=== PATIENT | male | born 1955 | race Caucasian/White ===

== ENCOUNTER 2021-08-05 09:03 | Day surgery (SDC) | payer BC, SELFPAY ==
--- NOTE | 2021-08-05 | IMM_PTH ---
PATIENT: MATHEW AVENDAÑO LOC: [facility] – [place] U#:[id number] AGE/SX: 65/M ROOM: RE08/05/[address]: Dr. Peter Wan MD : 1955 BED: DIS: 08/05/2021 SPEC #: [id number] RECD: 08/08/21 09:49 STATUS: KAUR REQ #: [id number] [place]: 08/05/21 00:[address]: Peter Wan DEPT: IMMUNOHISTOCHEMISTRY RECD BY: Katerien Kessler ENTERED: 08/08/21 09:50 SP TYPE: IMMUNO OTHR DR: Danielle Primary Care Phys Tissues: Supraglottic space Procedures: p16 (initial) KI-67 (add) PHYSICIAN & INSTITUTION [place] [address] SPECIMEN INFORMATION: Tissue Source: Left supraglottic mass Clinical Info: Left supraglottic mass Specimen Number: [id number] CPT code: 90956, 13538 METHODOLOGY: Deparaffinized sections of prefer/formalin-fixed tissue or PAP/DQ stained slides are incubated with monoclonal/polyclonal antibodies/oligonucleotide probes. Localization is made via biotin free immunoperoxidase method. Appropriate controls are performed and reacted as expected. Results on target cell population are indicated in the following table: RESULTS: ANTIBODY / CLONE RESULT P16 (E6H4) positive, patchy to focal block-like Ki-67 (30-9) positive, high (>90%) These tests were developed and their performance characteristics determined by [facility]. They may not have been cleared or approved by the U.S. Food and Drug Administration. The FDA has determined that such clearance or approval is not necessary. The above immunohistochemical/dualISH markers are ordered and reviewed by the Pathologist. INTERPRETATION: Left supraglottic mass, biopsy: Invasive moderately differentiated squamous cell carcinoma. AM:zita 08/12/2021
--- NOTE | 2021-08-05 | MASS_PTH ---
PATIENT: MATHEW AVENDAÑO [place] [facility] [place][id number] AGE/SX: 65/M ROOM: RE08/05/[address]: Dr. 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 See comment. SJ:zita 08/07/2021 COMMENT Immunohistochemistry ([id number]) for surrogate HPV marker (p16) will be performed and results will be reported separately. Case has been reviewed in consultation with Dr. Hoover who concurs with the above diagnosis. IDC:AM MICROSCOPIC DESCRIPTION Slides are reviewed. GROSS DESCRIPTION Received in fixative is one container labeled with the patient's name and designated left supraglottic mass. The specimen consists of multiple irregular fragments of light harris soft tissue that in aggregate measure 0.4 x 0.2 x 0.1 cm. The specimen is totally submitted in one cassette. / DIANNA:zita 08/06/2021 TC:0 CPT: 95576
[2021-08-05] MEDS: Lactated Ringers 1,000 ML 15 ML IV (09:30)
[2021-08-05 09:40] VITALS: BP 140/67; PULSE 65; RESP 18; TEMP 36.4; O2SAT 96; BMI 26.4
--- NOTE | 2021-08-05 12:38 | PCM.DC ---
Discharge Instructions Diet Discharge Diet: No restrictions Activity Discharge Activity: Return to Normal Activity Dressing / Incision Call your doctor if your incision/area has: Sudden Increased Bleeding and Increased Pain/ Swelling Follow Up Care Please Follow Up With: Marcial Wan MD When: 1 week Test Results: Test results from this visit will be discussed in further detail at your follow-up appointment, if applicable. Discharge Plan Admission Attending Provider: Marcial Wan Primary Care Provider: Care Physician,No Primary Discharge Orders/Prescriptions Prescriptions: No Action Delsym 30 mg/5 mL Liquid 30 mg PO PRN PRN (Reason: Cough) RF: 0 Mucinex 1,200 mg Tablet Extended Release 12hr 1,200 mg PO BID RF: 0 aspirin 81 mg Capsule 81 mg PO DAILY RF: 0 omeprazole 40 mg Capsule,Delayed Release(Dr/Ec) 40 mg PO DAILY RF: 0 Disposition Discharge Orders: Discharge Patient (Routine); Ordered 08/05/21 Ordered By: Dr. Marcial Wan
--- NOTE | 2021-08-05 12:38 | PCM.OPRPT ---
Problems Associated Problem List Diagnoses (1) Mass of larynx: Report of Operation Date of Procedure: 08/05/21 Pre-Operative Diagnosis: supraglottic mass, left Post-Operative Diagnosis: supraglottic mass, left Surgery/Procedure Performed:: direct laryngoscopy with biopsy and use of operative telescope Surgeon: Marcial Wan Type of Anesthesia: General Description of Procedure: on the day of the procedure, after appropriate informed consent was obtained, the patient was brought to the operating room and placed in supine position on the operating table. he was placed under general endotracheal anesthesia by the anesthesiologist. the tube was secured, the eyes were taped. the table was rotated 90 degrees toward the surgeon. a tooth guard was placed. a agueda laryngoscope was inserted into the oral cavity with care not to damage the lips, teeth or gums. it was suspended from the muir stand. a satisfactory glottic view was obtained, but his anatomy afforded a suboptimal angle. he has a 2cm granular left supraglottic mass that did not involve the cord but potentially the anterior area of the supraglottis. a biopsy was taken with a cupped biting forceps. hemostasis was achieved with oxymetazoline-soaked pledgets. he was extubated uneventfully by the anesthesiologist and sent to the PACU in stable condition.
[2021-08-05] MEDS: Oxymetazoline 0.05% 1 SPRAY SPRAY.BTL 15 SPRAY (13:09)
[2021-08-05 13:30] VITALS: BP 140/67; BP 158/91; PULSE 78; RESP 18; TEMP 36.4; O2SAT 96
[2021-08-05 13:45] VITALS: BP 139/81; BP 140/67; PULSE 71; RESP 16; TEMP 36.8; O2SAT 95
[2021-08-05 14:00] VITALS: BP 140/67
== END 2021-08-05 14:39 | disposition home or self-care (01) ==
LOC: SDC 09:04 → AC 09:06
PROVIDERS: Referring Provider Otolaryngology; Visit Provider Otolaryngology
PROC: 0CJS8ZZ Inspection of Larynx, Via Natural or Artificial Opening Endoscopic (ICD-10-PCS; CPT 31575; principal; 2021-08-05 10:40)
DX: C32.1 Malignant neoplasm of supraglottis (principal); J44.9 Chronic obstructive pulmonary disease, unspecified; M19.90 Unspecified osteoarthritis, unspecified site; Z79.82 Long term (current) use of aspirin; H40.059 Ocular hypertension, unspecified eye
CPT/HCPCS: 31536; 00320; 87426; 88305; 88341; 88342; C9803; J7120; J2405

== ENCOUNTER → 2021-08-27 | Outpatient (CLI) | payer BC, SELFPAY ==
--- NOTE | 2021-08-27 16:15 | PET_ITS ---
PROCEDURE: WHOLE BODY PET/CT SCAN, MID SKULL TO MID THIGH REASON FOR EXAM: Head and neck squamous cell carcinoma, initial staging COMPARISON EXAMINATION: CT 08/29/2020. TECHNIQUE: Following the intravenous administration of 13.4 mCi of F-18 FDG, multiplanar imaging acquisitions of the neck, chest, abdomen/pelvis to the mid thigh, obtained at 1 hour post radiopharmaceutical administration. Interpretation is with co-registeration of similar anatomic distribution of CT. Findings: Normal and physiologic distribution of radioisotope identified in the expected intensity of the hepatic and splenic parenchyma, urinary tract and gastrointestinal structures. There is gross anatomic distribution of the intracranial contents. Osseous degenerative changes/activity noted. INDEX LESION SIZE SUV INTERPRETATION: 1. Discrete nodule with abnormal FDG activity along the anterior left vocal cord (at level of thyroid cartilage) measures 1.1 x 1.3 cm (SUV 6.5). This is best seen on image [address] portion of the exam: Atherosclerosis of the carotid arteries. Volume loss of the right middle lobe. Mild atelectasis of the bilateral lower lobes. Centrilobular emphysema of the upper lungs. There is no demonstrated pleural abnormality. Normal heart and pericardium. There are calcifications of the coronary arteries. Normal mediastinum. Normal hilar regions. Normal unenhanced pulmonary arteries. There is atherosclerotic tortuosity of the aortic arch and descending thoracic aorta. Normal liver. Normal gallbladder and extrahepatic biliary system. Normal spleen. Normal pancreas. Normal bilateral adrenal glands. Normal right kidney. Normal left kidney. Normal visualized stomach. Normal small intestine. Normal colon. The appendix is visualized and appears normal. There is diffuse atherosclerotic calcification of the abdominal aorta, without a demonstrated aneurysm. Normal inferior vena cava. Normal urinary bladder. Small fat-containing inguinal hernias. Degenerative changes of the spine. No lytic or sclerotic bone lesions. PET/PET/CT Tumor Base -Thigh Init IMPRESSION: 1. ABNORMAL EXAMINATION. Focal activity of the left anterior larynx/vocal cord meets criteria for viable neoplasm. No evidence of metastasis. 2. Right middle lobe collapse/atelectasis. 3. Chronic changes, as detailed above. Electronically Signed: Kt Coon MD (Brooks) at 15:29 EDT Reading Location ID and State: / [place] , Service support ,
== END | disposition home or self-care (01) ==
PROVIDERS: Referring Provider Otolaryngology; Visit Provider Otolaryngology
DX: Z00.00 Encounter for general adult medical examination without abnormal findings (principal)
CPT/HCPCS: 78815; A9552

== ENCOUNTER → 2021-08-29 | Outpatient (CLI) | payer BC, SELFPAY ==
--- NOTE | 2021-08-29 07:27 | CT_ITS ---
EXAM: CT NECK WITH INTRAVENOUS CONTRAST CLINICAL INDICATION: SQUAMOUS CELL CARCINOMA TECHNIQUE: Helically acquired images were obtained of the neck with intravenous contrast. This CT exam was performed using one or more of the following dose reduction techniques: automated exposure control, adjustment of the mA and/or kV according to patient size, and/or use of iterative reconstruction technique. This report was created using [employer] technology. CONTRAST: 100 CC ISOVUE 300 COMPARISON: None. FINDINGS: NASOPHARYNX: Unremarkable. SUPRAHYOID NECK: Unremarkable. Oropharynx, oral cavity, parapharyngeal space and retropharyngeal space are unremarkable. INFRAHYOID NECK: Unremarkable. The larynx, hypopharynx and supraglottis are unremarkable. SUBMANDIBULAR/PAROTID GLANDS: Unremarkable. Glands are normal in size. THYROID: Unremarkable. No enlarged or calcified nodules. BONES/JOINTS: No acute fracture. SOFT TISSUES: Unremarkable. VASCULATURE: No acute findings. LYMPH NODES: Unremarkable. No lymphadenopathy. LUNG APICES: Emphysematous changes noted at the lung apices. CT/Soft Tissue Neck WITH Contrast IMPRESSION: 1. No evidence of neck mass or cervical adenopathy. 2. Pulmonary emphysema. Electronically Signed: Steve Hilton MD at 9:37 EDT ,
[2021-08-29 07:36] LABS: EGFR FINGERSTICK > 60.0000 mL/min (>60)
== END | disposition home or self-care (01) ==
LOC: CT 07:26
PROVIDERS: PCP Nurse Practitioner Primary Care; Referring Provider Otolaryngology; Visit Provider Otolaryngology
DX: C32.9 Malignant neoplasm of larynx, unspecified (principal)
CPT/HCPCS: 70491; Q9967

== ENCOUNTER → 2021-10-20 | Outpatient (CLI) | payer BC, SELFPAY ==
[2021-10-20 13:18] LABS: Platelet Count 220 K/mm3 (150-450)
[2021-10-20 13:27] LABS: International Normalized Ratio 0.9; Prothrombin Time (Protime)PT. 11.6 SECONDS (11.7-14.9)
== END | disposition home or self-care (01) ==
LOC: PAVLAB 12:55
PROVIDERS: PCP Nurse Practitioner Primary Care; Visit Provider Internal Medicine Critical Care Medicine
DX: J98.11 Atelectasis (principal)
CPT/HCPCS: 36415; 85049; 85610

== ENCOUNTER → 2022-04-02 | Outpatient (CLI) | payer BC, SELFPAY ==
--- NOTE | 2022-04-02 13:48 | ST.MBS ---
Modified Barium Swallow - Patient Information Study Date: 04/02/22 Study Time: 12:50 Direct Billable Minutes: 106 Total Minutes procedure & reportin Diagnosis: Primary cancer of the larynx (C32.9) Referring Physician: Sachin Oswald Reason for Referral: Objectively assess swallow function, assess risk for aspiration, and determine recommendations for least restrictive diet textures and compensatory strategies to improve safety of swallow. 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 From 10/06/2021 ? 11/12/2021 he received definitive radiation therapy to the larynx in 28 fractions. He followed with speech therapy to manage dysphagia during radiation treatment and has been recommended for follow-up MBSS to assess risk for worsening dysphagia s/p radiation. Current Diet Ordered: Regular textures / Thin liquids Dentition: WNL Mental Status: WNL Respiratory Status: Oxygenating on Room Air - Penetration-Aspiration Scale Penetration-Aspiration Scale: OBJECTIVE ASSESSMENT OF SWALLOW FUNCTION (QUANTITATIVE ? PER TRIAL): PENETRATION / ASPIRATION SCALE (DIAZ): 1 = does not enter airway 2 = enters airway/above vocal folds/ejected 3 = enters airway/above vocal folds/not ejected 4 = enters airway/contacts vocal folds/ejected 5 = enters airway/contacts vocal folds/not ejected 6 = enters airway/below vocal folds/ejected 7 = enters airway/below vocal folds/not ejected despite effort 8 = enters airway/below vocal folds/no effort VIDEOFLOROSCOPIC SCALE SCORE (DIAZ): Grade I = aspiration of material that has penetrated into the laryngeal vestibule, intact cough reflex Grade II = aspiration < 10 % of the bolus, intact cough reflex Grade III = aspiration of < 10 % of the bolus, reduced cough reflex or aspiration of > 10 % of the bolus, intact cough reflex Grade IV = aspiration of > 10 % of the bolus, reduced cough reflex - Penetration-Aspiration Scale Score Thin Liquid via teaspoon Result: 2= enter airway/above vocal folds/ejected Thin Liquid via teaspoon Trial 2 Result: 1= does not enter airway Thin Liquid via small single sip from cup Result: 2= enter airway/above vocal folds/ejected Thin Liquid via sequential sips from cup Result: 3= enters airways/above vocal folds/not ejected [place] Thick Liquid via small single sip from cup Result: 1= does not enter airway Honey Thick Liquid via small single sip from cup Result: 1= does not enter airway Pudding via teaspoon Result: 1= does not enter airway - Oral Phase Labial Seal: No Labial Escape Tongue Control During Bolus Hold: Posterior escape of less than half of bolus Bolus Preparation/Mastication: Timely and efficient chewing and mashing Bolus Transport/Lingual Motion: Brisk tongue motion Oral Residue: Trace residue lining oral structures - Pharyngeal Phase Initiation of Pharyngeal Swallow: Bolus head in valleculae Soft Palate Elevation: No bolus between soft palate and pharyngeal wall Laryngeal Elevation: Partial superior movement thyroid cart/partial apprx aryt-epig petiole Anterior Hyoid Excursion: Partial anterior movement Epiglottic Movement: Partial inversion Laryngeal Vestibule Closure at Height of Swallow: Incomplete; narrow column of air/contrast in laryngeal vestibule Pharyngeal Stripping Wave: Present - diminished Pharyngoesophageal Segment Opening: Parital distension and partial duration; parital obstruction of flow Tongue Base Retraction: Wide column of contrast between tongue base & post. pharyngeal wall Pharyngeal Residue: Collection of residue within or on pharyngeal structures - Esophageal Phase Esophageal Clearance: Esophageal retention w/ retrograde flow below pharyngoesophageal seg. - Diagnosis/Impression Diagnosis: Mild pharyngeal phase dysphagia (R13.13) Impression: The oral phase appeared WNL. The pharyngeal phase is primarily marked by... -Mildly decreased airway closure during the swallow due to mildly decreased anterior hyoid excursion, partial epiglottic inversion, and mildly decreased laryngeal elevation. -Mildly-moderately decreased tongue base retraction, mildly decreased UES opening/duration, and mildly decreased pharyngeal stripping wave with resulting mild pharyngeal residues after the swallow. -No aspiration observed during the study. Laryngeal penetration of thin by tsp and single sips by cup that fully ejected from the laryngeal vestibule after the swallow. One trial of sequential thin by cup penetrated and did not fully eject from the laryngeal vestibule. Pt did have reflexive throat clear during trial, which was somewhat effective. The esophageal phase is primarily marked by... -Esophageal retention of pudding in mid and lower esophagus with retrograde flow remaining below the UES. Thin liquid wash cleared a majority of the pudding bolus from the esophagus in a timely manner. - Recommendations Diet: Regular Textures, Thin Liquids Compensatory Strategies: Small Bites, Small Sips, Slow Rate, Multiple Swallows - continue as needed, Alternate bites/solids and sips/liquids, Sitting upright, Remain sitting upright for 30 minutes after PO intake Recommend Repeat Modified Barium Swallow: Yes Comment: Repeat MBSS study in 6-12 months to monitor swallow function as the patient is at risk for worsening dysphagia and aspiration risk s/p radiation treatment. Need for Skilled Speech Therapy Services: Yes Comment: Will recommend the patient for outpatient dysphagia therapy to address mild deficits in pharyngeal swallow function. Will recommend the patient for pharyngeal strengthening to improve mild deficits in laryngeal elevation, hyoid excursion, pharyngeal contraction, and duration of UES opening. The patient would benefit from thorough education regarding recommended compensatory strategies, as well as re-education in the long-term effects of radiation that increase risk for worsening dysphagia. Education Completed: 1. Described result of evaluation., 2. Pt understands evaluation & agrees with goals and treatment plan., 7. Pt requires further education on strategies & risks. - Status Active ST Patient: Active - Contact Information [facility] Speech Therapy:: Nancy Conrad M.A. [employer] Speech-Language Pathologist [facility] [address] [address] [email or web address] [phone] 04/02/22 13:56
== END | disposition home or self-care (01) ==
LOC: RAD 12:19
PROVIDERS: PCP Nurse Practitioner Primary Care; Visit Provider Student in an Organized Health Care Education/Training Program
DX: C32.9 Malignant neoplasm of larynx, unspecified (principal)
CPT/HCPCS: 74230; 92611

== ENCOUNTER 2022-04-07 11:30 | Outpatient (RCR) | payer BC, SELFPAY ==
--- NOTE | 2021-10-27 12:41 | HP.SP.EVAL ---
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 Plan was made to complete definitive radiation therapy consisting of 6300 cGy in 28 fractions to the larynx. 13 treatments are remaining. Smoking Status: Current some day smoker Hx Tobacco Use: Yes - Pain Is pain an issue with your current prescribed condition?: Yes Patient Allergies - Allergies Allergies codeine Adverse Reaction (Verified 10/22/21 13:14) Nausea Subjective Dysphagia - Symptoms Reported Symptoms/Problems with: Coughing, Difficulty Swallowing Liquids, Weight Loss - Current Diet Solids Current Diet: Soft - Current Diet Liquids Current Liquids: Thin - Comments Current complaints -: Pt concern for aspiration of liquids if he is taking too large of sips, odynophagia, mild hypogeusia and dysgeusia, weight 194.2 lbs (down 2-3 lbs per pt). He is currently eating ground/chopped meats and soft solids, such as macaroni and cheese. He reports 1 large meal and 2-3 snacks daily. Objective Dysphagia - Thin Liquids Administred via: Cup, Straw Oral Transit: Delay > 1 seconds Bolus clearance: significant clearance/minimal residue Cough: none observed/unable to assess Pharyngeal phase: laryngeal elevation mildly restricted slow initiation Patient Report: He reports increased difficulty swallowing with large sips. He describes requiring piecemeal deglutition with large sips to clear them safely and with minimal pain. Comments: No overt s/s of aspiration, dry vocal quality following trials. - Pureed Administered via: Spoon Oral Transit: WNL Bolus clearance: fully cleared Cough: none observed/unable to assess Pharyngeal phase: laryngeal elevation mildly restricted slow initiation Comments: He consumes bites of applesauce via 1/2 tsp. He completed bites with timely swallow, no overt s/s of aspiration. - Regular Oral Preparation: WNL Bolus clearance: significant clearance/minimal residue Cough: weak reflexive cough Pharyngeal phase: immediate laryngeal elevation Comments: Prolonged mastication, cough following 2 bites - Swallowing Impairment Contributing Factors to Swallowing Impairment: Delayed Swallow Initiation - Impact Impact on Safety & Functioning: Risk for Aspiration, Risk for Inadequate Nutrition/Hydration - Recommendations Modified Barium Swallow/Cookie Swallow Recommended: Yes Swallowing Treatment: Yes - Diet Texture Recommendations Solids: Soft & Bite sized (Level 6, Chopped) Liquids: Thin (Level 0) Other: Strongly encouraged completing green tea and baking soda rinses recommended by his radiation oncologist, Dr. Oswald. - Safety Saftey Precautions/Swallowing Recommendations (Check all that Apply): Small Sips & Bites when Eating, Alternate Liquids & Solids - Results Swallowing Within Normal Limits: No Swallowing Diagnosis: Pharyngeal Phase Dysphagia (R13.13) Severity: Mild Subjective Oral Motor - Comments Comments: Hoarseness, which began after the first week of radiation. Objective Oral Motor - Oral Status Dentition: Missing Teeth - Labial Impairment: WNL Observation at Rest: WNL Closure: WNL Pucker: WNL Involuntary Movement noted: No - Lingual Impairment: WNL Protrusion: WNL Retraction: WNL Lateralization: WNL - Jaw Impairment: WNL Opening: WNL Closing: WNL Opening Measurement: 41mm lip to lip measurement Involuntary Movement: No - Respiratory Status Respiratory Status: Room Air SHUTDOWN COORDINATOR - V Trigeminal Nerve V Trigeminal Nerve Response: Intact - VII Facial Nerve VII Facial Nerve Result: Impaired Comment: mild dysgeusia and hypogeusia - X Vagus Nerve X Vagus Nerve Result: Intact - XII Hypoglossal Nerve XII Hypoglossal Nerve Result: Intact FOIS - Functional Oral Intake Scale Total oral diet with multiple consistencies, but requiring special preparation or compensations: Level 5 Other - Other EAT-10 -: Score of 17 - score of 19 helpful in detecting the presence of pharyngeal residue in head and neck cancer patients. Plan - Plan Plan: Will recommend the patient for skilled outpatient dysphagia therapy to address mild pharyngeal dysphagia related to laryngeal cancer and to provide the patient further education re: prophylactic oropharyngeal exercise program, diet texture recommendations, aspiration precautions, and compensatory strategies to decrease risk for aspiration. Additionally, will provide ongoing assessment of diet tolerance during and post radiation treatment. Without skilled ST services, the patient is at increased risk for aspiration, weight loss, and malnutrition. SENIOR ENLISTED ADVISOR recommended Dr. Oswald place consult to certified coding specialist to meet with the patient about introducing oral supplements due to recent weight loss and SENIOR ENLISTED ADVISOR concerns for dehydration risk. - Recommendations MBS: Yes Treatment Warranted: Yes Treatment Warranted: Dysphagia Comment: MBS study 3 months after completion of radiation (~). - Progress Prognosis: Good - Frequency Frequency: Every Other Week Duration: 12 Months - Goal #1-5 Goal #1: The patient will consume least restrictive diet textures without overt s/s of aspiration with minimal verbal cues for use of compensatory strategies to decrease risk for aspiration. Goal #2: The patient will complete an oropharyngeal exercise program during and post radiation treatment independently to improve and maintain strength, ROM, and coordination of swallowing mechanism (X10 repetitions, 3-5X daily). Goal #3: The patient will participate in ongoing education re: short-term and long-term effects of chemoradiation treatment on swallow function and management of symptoms that contribute to dysphagia. Goal #4: The patient will participate in MBS study to objectively assess swallow function and provide recommendations for safest, least restrictive diet and compensatory strategies to reduce risk for aspiration. Education - Patient Instruction Patient Education: Diagnosis, Treatment Plan, Goals, Diet Level, Home Exercise Program Other Education: Education provided regarding the potential impacts of radiation treatment on swallow function during and post treatment, including effects such as mucositis, dysgeusia, radiation fibrosis, lymphedema, and disuse atrophy which may result in restricted range of motion and weakness of swallowing mechanism. Discussed impaired swallowing and increased risk for aspiration, aspiration related illnesses, weight loss, and malnutrition. Discussed importance for speech therapy to monitor and address dysphagia during and post radiation treatment to maintain optimal swallow function through continued education and prophylactic exercise program. Provided the patient a handout and demonstration of prophylactic oropharyngeal exercise program. The patient provided return demonstration with all exercises with minimal verbal cues and demonstration. The patient would benefit from continued training to monitor proper execution of exercises and encourage strict adherence to exercise program. Person Taught: Patient Teaching Method: Discussion, Demonstration, Handout, Teach back Response to teaching: Return demonstration, Verbalize understanding, Reinforcement needed
--- NOTE | 2022-12-22 11:41 | HP.SP.DC ---
Discharge Summary Discharged: Discharge: The patient was seen for dysphagia evaluation 10/27/2021. He attended 3 follow up sessions for training in recommended diet textures, aspiration precautions, and oropharyngeal exercise program. He was tolerating his diet, utilizing strategies with min cues, and able to complete exercises with minimal cues. He is being discharged from at this time. He is recommended for yearly MBSS or FEES to objectively evaluate swallow function and aspiration risk s/p radiation treatment for laryngeal cancer.
== END 2022-04-07 19:00 | disposition home or self-care (01) ==
LOC: SP 11:30
PROVIDERS: PCP Nurse Practitioner Primary Care; Referring Provider Student in an Organized Health Care Education/Training Program; Visit Provider Student in an Organized Health Care Education/Training Program
DX: C32.9 Malignant neoplasm of larynx, unspecified (principal)
CPT/HCPCS: 77336; 77412; 77417; 92526; 92610

== ENCOUNTER → 2022-06-01 | Outpatient (CLI) | payer BC, SELFPAY ==
--- NOTE | 2022-06-01 16:15 | CT_ITS ---
INDICATION: follow up lung abnormality on PET -- please compare to prior EXAMINATION: CT CHEST WITH CONTRAST - CT Chest W/O Contrast Injection A radiation dose optimization technique was used for this scan. COMPARISON: PET CT 02/25/2022. FINDINGS: Noncontrast serial CT axial images through the chest with coronal and sagittal reformatted series. MEDIASTINUM: Noncontrast mediastinum is unremarkable. LUNG PARENCHYMA: Diffuse upper lung predominant emphysematous lung changes. Interval decreased consolidation of the posteromedial right lower lobe. Decreased posterior left upper lobe smaller area of consolidation as well. PLEURA: No pleural effusion. No pneumothorax. BONES: Osseous structures are unremarkable for age. UPPER ABDOMEN: Bilateral adrenal adenomas. CT/Chest without Contrast IMPRESSION: Interval decreased consolidation of the posteromedial right lower lobe. Decreased posterior left upper lobe smaller area of consolidation as well. Electronically Signed: Tomas Tony MD at 3:20 EDT ,
== END | disposition home or self-care (01) ==
LOC: CT 16:14
PROVIDERS: PCP Nurse Practitioner Primary Care; Visit Provider Student in an Organized Health Care Education/Training Program
DX: R94.2 Abnormal results of pulmonary function studies (principal)
CPT/HCPCS: 71250

== ENCOUNTER → 2023-04-05 | Outpatient (CLI) | payer BC, SELFPAY ==
--- NOTE | 2023-04-05 14:19 | ST.MBS ---
Modified Barium Swallow Patient Information Study Date: 04/05/23 Study Time: 13:00 Direct Billable Minutes: 64 Total Minutes procedure & reportin Diagnosis: Primary cancer of larynx C32.9 Referring Physician: Shukri Pino Reason for Referral: Objectively assess swallow function, assess risk for aspiration, and determine recommendations for least restrictive diet textures and compensatory strategies to improve safety of swallow. 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 From 10/06/2021 ? 11/12/2021 he received definitive radiation therapy to the larynx in 28 fractions. He followed with speech therapy to manage dysphagia during radiation treatment and has been recommended for follow-up MBSS to assess risk for worsening dysphagia s/p radiation. Currently, he has ~25% of his taste after having COVID-19 twice. He also is very hoarse due to two recent PNA (~2 months ago and ~2 weeks ago). He was unsure what type of PNA he had. He denies xerostomia or odynophagia. He reports having to chew foods thoroughly and moisten dry textures. He has stopped eating bread. Current Diet Ordered: Soft, moist solids (no bread) / Thin liquids Dentition: Natural Teeth and Missing Teeth Mental Status: WNL Respiratory Status: Oxygenating on Room Air Penetration-Aspiration Scale Penetration-Aspiration Scale: OBJECTIVE ASSESSMENT OF SWALLOW FUNCTION (QUANTITATIVE ? PER TRIAL): PENETRATION / ASPIRATION SCALE (DIAZ): 1 = does not enter airway 2 = enters airway/above vocal folds/ejected 3 = enters airway/above vocal folds/not ejected 4 = enters airway/contacts vocal folds/ejected 5 = enters airway/contacts vocal folds/not ejected 6 = enters airway/below vocal folds/ejected 7 = enters airway/below vocal folds/not ejected despite effort 8 = enters airway/below vocal folds/no effort VIDEOFLOROSCOPIC SCALE SCORE (DIAZ): Grade I = aspiration of material that has penetrated into the laryngeal vestibule, intact cough reflex Grade II = aspiration < 10 % of the bolus, intact cough reflex Grade III = aspiration of < 10 % of the bolus, reduced cough reflex or aspiration of > 10 % of the bolus, intact cough reflex Grade IV = aspiration of > 10 % of the bolus, reduced cough reflex Penetration-Aspiration Scale Score Thin Liquid via teaspoon: Result: 3= enters airways/above vocal folds/not ejected Thin Liquid via teaspoon Effortful swallow: Result: 3= enters airways/above vocal folds/not ejected Thin Liquid via large single sip: cup: Result: 3= enters airways/above vocal folds/not ejected [place] Thick Liquid via small single sip: cup: Result: 1= does not enter airway Pudding via teaspoon: Result: 1= does not enter airway Comment: Esophageal screen - retention in mid-lower esophagus. Thin Liquid via sequential sips:straw: Result: 3= enters airways/above vocal folds/not ejected Comment: Esophageal screen - pudding contrast from the previous trial mostly cleared. 1/2 Cookie: Result: 1= does not enter airway Thin Liquid via large single sip: cup Chin tuck: Result: 3= enters airways/above vocal folds/not ejected Oral Phase Labial Seal: No Labial Escape Tongue Control During Bolus Hold: Cohesive bolus between tongue to palatal seal Bolus Preparation/Mastication: Timely and efficient chewing and mashing Bolus Transport/Lingual Motion: Brisk tongue motion Oral Residue: Trace residue lining oral structures Pharyngeal Phase Initiation of Pharyngeal Swallow: Bolus head in valleculae Soft Palate Elevation: No bolus between soft palate and pharyngeal wall Laryngeal Elevation: Partial superior movement thyroid cart/partial apprx aryt-epig petiole Anterior Hyoid Excursion: Partial anterior movement Epiglottic Movement: No inversion Laryngeal Vestibule Closure at Height of Swallow: Incomplete; narrow column of air/contrast in laryngeal vestibule Pharyngeal Stripping Wave: Present - diminished Pharyngoesophageal Segment Opening: Complete distension and complete duration; no obstruction of flow Tongue Base Retraction: Wide column of contrast between tongue base & post. pharyngeal wall Pharyngeal Residue: Collection of residue within or on pharyngeal structures Esophageal Phase Esophageal Clearance: Esophageal retention Diagnosis/Impression Diagnosis: Mild-moderate pharyngeal dysphagia R13.13 Impression: The oral phase appeared WNL. The pharyngeal phase is primarily marked by... -Mildly decreased airway closure during the swallow due to decreased anterior hyoid excursion, little to no epiglottic inversion (worse compared to previous study), and decreased laryngeal elevation. -Moderately decreased tongue base retraction and moderately decreased pharyngeal stripping wave (worse compared to previous study) with resulting mild-moderate pharyngeal residues after the swallow. Multiple swallows were independently used to clear a majority of pharyngeal residues. -No aspiration observed during the study. Consistent laryngeal penetration of thin and nectar thick liquids. Thin liquids did not fully ejected from the laryngeal vestibule after the swallow. Chin tuck somewhat decreased amount/depth of laryngeal penetration. Cough and re-swallow was most effective in decreasing aspiration risk. The esophageal phase is primarily marked by... -Esophageal retention of pudding in mid and lower esophagus remaining below the UES. Thin liquid wash cleared a majority of the pudding bolus from the esophagus in a timely manner. Recommendations Diet: Mechanical Soft Textures (Soft and bite size (IDDSI Level 6)) and Thin Liquids Compensatory Strategies: Small Bites, Small Sips, Slow Rate, Multiple Swallows (Patient completes as needed), Alternate bites/solids and sips/liquids, Sitting upright and Remain sitting upright for 30 minutes after PO intake Supervision: 1:1 Close Supervision Recommend Repeat Modified Barium Swallow: Yes Comment: Repeat MBS study in 6-12 months to monitor swallow function as the patient is at risk for worsening dysphagia and aspiration risk s/p radiation treatment. Patient is not interested in FEES at this time. Need for Skilled Speech Therapy Services: Yes Comment: -Train the patient in use of strategies to decrease risk for aspiration. -Ongoing assessment of diet tolerance of recommended textures. -Train the patient oropharyngeal exercise program. Education Completed: 1. Described result of evaluation., 2. Pt understands evaluation & agrees with goals and treatment plan. and 7. Pt requires further education on strategies & risks. Status Active ST Patient: Active Contact Information [facility] Speech Therapy:: Nancy Conrad M.A. [facility] Speech-Language Pathologist [facility] [address] [place] [address] [email or web address] [phone]
== END | disposition home or self-care (01) ==
PROVIDERS: PCP Nurse Practitioner Primary Care; Referring Provider Radiology Radiation Oncology; Visit Provider Radiology Radiation Oncology
DX: C32.9 Malignant neoplasm of larynx, unspecified (principal)
CPT/HCPCS: 74230; 92611

== ENCOUNTER → 2023-06-08 | Outpatient (CLI) | payer BC, SELFPAY ==
--- NOTE | 2023-06-08 13:23 | CT_ITS ---
STUDY: LOW DOSE CT LUNG CANCER SCREENING REASON FOR EXAM: Male, 67 years old. Patient smoke 2 packs per day for 40 years. COPD. History of esophageal carcinoma. RADIATION DOSAGE (If Supplied By Facility): CTDIvol = ( 3.02 ) mGy, DLP = ( 130.96 ) mGycm TECHNIQUE: No contrast was administered. Low dose technique was utilized (average mAS-38 and kVp 120). 1.25 mm axial source images with a slice interval of 1.25-mm were reconstructed in lung windows. 2.5 mm axial source images with a slice interval of 2.5-mm were reconstructed in lung windows. 5.0 mm axial source images with a slice interval of 5.0-mm were reconstructed in soft tissue windows. COMPARISON: Comparison is made with prior study dated June 01, 2022. NODULES: There is a 1.1 solid by 2 cm pleural-based nodular density in the posterior aspect of the left lower lobe as seen on axial image #2052 and coronal image #20 and 27. Correlation with a PET scan is recommended. Emphysema: Hyperinflation. Emphysematous changes more pronounced in the upper lobes. There is evidence of bronchiectasis with scarring and volume loss in the posterior medial segment of the right lower lobe. Linear scarring in the posterior medial segment of the left lower lobe. Endobronchial lesion: None Aorta: Atherosclerotic plaque formation of the aortic arch. CORONARY ARTERIES: Coronary artery calcification is seen. Heart: Unremarkable Pulmonary artery: Unremarkable Mediastinal nodes: Unremarkable Other chest and abdominal findings: CT/Low Dose CT Lung Screening IMPRESSION: Lung-RADS category 4B - Chest CT with or without contrast, PET/CT and/or tissue sampling can be obtained depending on the probability of malignancy and comorbidities. IMPORTANT NOTES FOR USE: ACR Lung-RADS Version 1.1 Assessment Categories Release Date: 2018 Category: Coded 0-4 bases on nodule(s) with highest degree of suspicion. Negative screen is defined as categories 1 and 2; a positive screen is defined as categories 3 and 4. Category 3 and 4A nodules that are unchanged on interval CT should be coded as category 2, and individuals returned to screening in 12 months. Category 4X: Category 3 or 4 nodules with additional imaging findings that increase the suspicion of lung cancer, such as spiculation, GGN that doubles in size in 1 year, enlarged lymph notes, etc. Category Modifiers: S (significant finding unrelated to lung cancer) Electronically Signed: Anibal Azevedo MD at 14:52 EDT ,
== END | disposition home or self-care (01) ==
LOC: CT 13:23
PROVIDERS: PCP Nurse Practitioner Primary Care; Referring Provider Nurse Practitioner Family; Visit Provider Nurse Practitioner Family
DX: Z12.2 Encounter for screening for malignant neoplasm of respiratory organs (principal); Z87.891 Personal history of nicotine dependence
CPT/HCPCS: 71271

== ENCOUNTER 2023-07-06 07:26 | Outpatient (CLI) | payer BC, SELFPAY ==
[2023-07-06] VITALS (17 sets, daily range): BP systolic 131–163; BP diastolic 53–90; PULSE 65–77; RESP 12–16; TEMP 36.7; O2SAT 96–99; BMI 24.0
[2023-07-06 07:56] LABS: Platelet Count 225 K/mm3 (150-450)
[2023-07-06 08:29] LABS: International Normalized Ratio 0.9; Prothrombin Time (Protime)PT. 12.6 SECONDS (11.7-14.9)
[2023-07-06] MEDS: 0.9% Normal Saline (250mL Bag) 250 ML 15 ML IV (08:59)
[2023-07-06] MEDS: Midazolam 2 MG/2 ML Syringe IV (09:00)
[2023-07-06] MEDS: fentaNYL 100 MCG/2 ML Ampul IV (09:04)
[2023-07-06] MEDS: Lidocaine 2% (20 ml mdv) 20 ML Vial INFILT (09:19)
--- NOTE | 2023-07-06 09:40 | RAD_ITS ---
STUDY: X-RAY CHEST REASON FOR EXAM: Male, 67 years old. Immediately post lung biopsy -- Immediately post lung biopsy TECHNIQUE: AP inspiration and expiration views. COMPARISON: None. FINDINGS: Immediate post left lung biopsy radiographs were obtained. There is a tiny left apical pneumothorax. RAD/Chest Insp/Exp 2 View IMPRESSION: Tiny left apical pneumothorax. Electronically Signed: Anibal Azevedo MD at 10:09 EDT ,
--- NOTE | 2023-07-06 10:35 | PCM.OP.PRO ---
Procedure Report Date of Procedure: 07/06/23 Assessment & Plan Assessment/Plan (1) Mass of lower lobe of left lung: PLAN: PROCEDURE: CT GUIDED CORE NEEDLE LUNG BIOPSY ORDERING PROVIDER: Sharon Chase CNP INDICATION: Male, 67 years old. Left lower lobe lung mass. PROVIDER: JAVIER Martin CONSENT: Written informed consent was obtained having explained the risks, benefits and alternatives in detail with the patient and who accepted the risks and agreed to proceed. Laboratory review and clinical assessment was performed. PRE-PROCEDURE SEDATION ASSESSMENT: Current history and physical dictated by referring physician and reviewed. No clinical changes since date of exam. Patient has an ASA Class of 2. PROCEDURAL SEDATION PROTOCOL: The Drugs used were: 2 mg Versed, IV, and 50 mcg Fentanyl, IV. The sedation time was: 29 minutes, starting at 9:00 AM and terminated at 9:29 AM. The procedural sedation protocol was independently monitored by the department nurse. RADIATION DOSAGE (If Supplied By Facility): CTDIvol = 16.73 mGy, DLP = 2.83.80 mGycm Individualized dose optimization techniques were used for this CT. TECHNIQUE: The patient was placed in a prone position. A noncontrast CT was performed to localize the lesion in the left lower lobe. The skin surface was prepped and draped in a sterile fashion. 2% lidocaine was used for local anesthesia. Using CT guidance, a 20-gauge coaxial biopsy device was advanced to the periphery of the lesion. While attempting to obtain the first biopsy sample, it was noted that there was no sample being returned. Repeat localization imaging revealed an iatrogenic pneumothorax. BioSentry tract sealant system was deployed at the biopsy site, and the biopsy needle was immediately removed. A sterile occlusive dressing was applied to the biopsy site. The patient tolerated the procedure well. An immediate chest xray was ordered, per protocol. IMPRESSION: 1. Attempted lung biopsy of mass of left lower lobe. Sampling was unable to be obtained. 2. Procedural Sedation protocol utilized with independent monitoring by the department nurse. Procedures Radiology Radiology CT Procedures: [id number] Biopsy Lung
--- NOTE | 2023-07-06 11:20 | RAD_ITS ---
STUDY: X-RAY CHEST REASON FOR EXAM: Male, 67 years old. 2 hours post lung biopsy -- 2 hours post lung biopsy TECHNIQUE: Two AP portable view of the chest. COMPARISON: July 06, 2023 FINDINGS: 1. No visualized left apical pneumothorax on the current study. 2. Redemonstration of hyperinflation and interstitial fibrotic scarring of both lungs 3. No demonstrated consolidation or pleural effusion 4. Normal heart size 5. Stable mediastinum and osseous structures There is no demonstrated abnormality of the visualized soft tissue structures of the upper abdomen. RAD/Chest Insp/Exp 2 View IMPRESSION: No visualized left pneumothorax Electronically Signed: Lul Kennedy MD at 13:39 EDT ,
== END 2023-07-06 23:59 | disposition home or self-care (01) ==
PROVIDERS: PCP Nurse Practitioner Primary Care; Referring Provider Nurse Practitioner Acute Care; Visit Provider Nurse Practitioner Acute Care
DX: R91.8 Other nonspecific abnormal finding of lung field (principal); I48.91 Unspecified atrial fibrillation; R06.00 Dyspnea, unspecified; T14.8XXA Other injury of unspecified body region, initial encounter
CPT/HCPCS: 32408; 36415; 71046; 77012; 85049; 85610; 85730; 99156; J7050; A4216; C2613

== ENCOUNTER → 2023-07-09 | Outpatient (CLI) | payer BC, SELFPAY | END | disposition home or self-care (01) | PROVIDERS: PCP Nurse Practitioner Primary Care; Referring Provider Nurse Practitioner Acute Care; Visit Provider Nurse Practitioner Acute Care | DX: F17.200 Nicotine dependence, unspecified, uncomplicated (principal) | CPT/HCPCS: 94060; 94726; 94729 ==

== ENCOUNTER → 2023-11-09 | Outpatient (CLI) | payer BC, SELFPAY ==
--- NOTE | 2023-11-09 16:58 | CT_ITS ---
INDICATION: Pulmonary nodule EXAMINATION: CT CHEST WITHOUT CONTRAST - CT Chest W/O Contrast Injection TECHNIQUE: Helically acquired images were obtained of the chest. A radiation dose optimization technique was used for this scan. IV Contrast dosage and agent: None. COMPARISON: 06/08/2023 FINDINGS: LUNGS, PLEURA AND LARGE AIRWAYS: Bone windows show underlying emphysema with bleb formation throughout both lung guerrero and stable nonspecific pleural thickening in both apices. There is no organized infiltrate, or effusion. The previously noted pleural-based mass in the posterior left lower lobe has decreased in size since the previous study. On the previous study it measured approximately 1.1 x 2 cm, on current study it measures 0.6 x 0.4 cm. Previously noted atelectatic changes in the medial right lower lobe are also again noted and these have also decreased in size since the previous study. There is no new suspicious noncalcified mass or nodule. THYROID: No thyroid lesions. HEART AND PERICARDIUM: Heart size is normal. No pericardial effusion. CORONARY ARTERIES: Coronary artery calcification is seen. VESSELS: Thoracic aorta is not dilated. MEDIASTINUM AND TAPAN: No suspicious bulky mediastinal or hilar adenopathy. Esophagus is unremarkable. No hiatal hernia. UPPER ABDOMEN: No acute pathology. BONES: No suspicious lytic or blastic abnormality. Bony structures show degenerative change CT/Chest without Contrast IMPRESSION: Previously noted pleural-based densities in both lower lung guerrero have decreased in size since the previous study. This suggests benignity. Emphysema is independent risk factor for lung cancer and patient should be placed in a low-density CT screening program for lung cancer. No organized infiltrate effusion or suspicious new noncalcified mass or nodule No suspicious adenopathy Degenerative bony changes Electronically Signed: Steven Coon MD at 8:45 EDT ,
== END | disposition home or self-care (01) ==
LOC: CT 16:55
PROVIDERS: PCP Nurse Practitioner Primary Care; Referring Provider Nurse Practitioner Acute Care; Visit Provider Nurse Practitioner Acute Care
DX: R91.8 Other nonspecific abnormal finding of lung field (principal)
CPT/HCPCS: 71250

== ENCOUNTER → 2024-08-04 | Outpatient (CLI) | payer BC, SELFPAY ==
--- NOTE | 2024-08-04 11:08 | SP.MBSS_ITS ---
Modified Barium Swallow Patient Information Study Date: 08/04/24 Study Time: 09:00 Direct Billable Minutes: 116 Total Minutes procedure & reportin Diagnosis: Primary cancer of the larynx C32.9 Referring Physician: Sachin Oswald Reason for Referral: Assess swallow function, assess risk for aspiration, and determine recommendations for least restrictive diet textures and compensatory strategies to improve safety of swallow. 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 From 10/06/2021 ? 11/12/2021 he received definitive radiation therapy to the larynx in 28 fractions. Dysphaiga Hx: He followed with speech therapy to manage dysphagia during radiation treatment and has attended annual follow up MBSS to assess risk for worsening dysphagia s/p radiation. PNA 2X February 2023-March 2023. MBSS 04/05/2023 revealed mild-moderate pharyngeal dysphagia and recommended Soft and Bite Size Textures and Thin Liquids w/ the following Compensatory Strategies: Small Bites, Small Sips, Slow Rate, Multiple Swallows (Patient completes as needed), Alternate bites/solids and sips/liquids, Sitting upright and Remain sitting upright for 30 minutes after PO intake. HULL GRINDER recommended follow up dysphagia therapy to address worsening swallow function, but the patient did not wish to return to at the time. He still has ~25% of his taste after having COVID-19 twice. He continues to be hoarse. ?Severe xerostomia upon waking but no issues w/ dry mouth during the day. No odynophagia. He reports having to chew foods thoroughly and take his time. The only food he avoids currently is rice. Current Diet Ordered: Regular textures (no rice) / Thin liquids Dentition: Natural Teeth and Missing Teeth Mental Status: WNL Respiratory Status: Oxygenating on Room Air Penetration-Aspiration Scale Penetration-Aspiration Scale: OBJECTIVE ASSESSMENT OF SWALLOW FUNCTION (QUANTITATIVE ? PER TRIAL): PENETRATION / ASPIRATION SCALE (DIAZ): 1 = does not enter airway 2 = enters airway/above vocal folds/ejected 3 = enters airway/above vocal folds/not ejected 4 = enters airway/contacts vocal folds/ejected 5 = enters airway/contacts vocal folds/not ejected 6 = enters airway/below vocal folds/ejected 7 = enters airway/below vocal folds/not ejected despite effort 8 = enters airway/below vocal folds/no effort VIDEOFLOROSCOPIC SCALE SCORE (DIAZ): Grade I = aspiration of material that has penetrated into the laryngeal vestibule, intact cough reflex Grade II = aspiration < 10 % of the bolus, intact cough reflex Grade III = aspiration of < 10 % of the bolus, reduced cough reflex or aspiration of > 10 % of the bolus, intact cough reflex Grade IV = aspiration of > 10 % of the bolus, reduced cough reflex Penetration-Aspiration Scale Score Thin Liquid 5mL : Result: 7= enters airways/below vocal folds/not ejected despite effort Thin Liquid 5mL Trial 2 - Head tilt backwards, patient reported this helps him to swallow: Result: 6= enters airway/below vocal folds/ejected Thin Liquid via large single sip: cup: Result: 5= enters airways/contacts vocal folds/not ejected Thin Liquid 10mL: Result: 5= enters airways/contacts vocal folds/not ejected Comment: post prandial aspiration [place] Thick Liquid via small single sip: cup: Result: 7= enters airways/below vocal folds/not ejected despite effort [place]/Mildly Thick Liquid 10mL: Result: 3= enters airways/above vocal folds/not ejected Comment: post prandial aspiration [place]/Mildly Thick Liquid 5mL: Result: 3= enters airways/above vocal folds/not ejected [place]/Mildly Thick Liquid 5mL Trial 2: Result: 3= enters airways/above vocal folds/not ejected Pudding 10mL: Result: 1= does not enter airway 1/2 Cookie: Result: 1= does not enter airway Thin Liquid via single sip: straw: Result: 1= does not enter airway Thin Liquid via single sip: straw Trial 2: Result: 5= enters airways/contacts vocal folds/not ejected Thin Liquid via single sip: straw - cued 3, effortful swallows: Result: 3= enters airways/above vocal folds/not ejected Thin Liquid via single sip: straw Trial 2 - cued 3, effortful swallows: Result: 3= enters airways/above vocal folds/not ejected Oral Phase Labial Seal: No Labial Escape Tongue Control During Bolus Hold: Escape to lateral buccal cavity/floor of mouth (Pt briefly spoke w/ thin by tsp in his mouth asking if he could swallow yet; otherwise, good bolus control) Bolus Preparation/Mastication: Disorganized chewing/mashing with solid pieces of bolus unchewed (small piece of [place] cookie not chewed) Bolus Transport/Lingual Motion: Brisk tongue motion Oral Residue: Residue collection on oral structures Pharyngeal Phase Initiation of Pharyngeal Swallow: Bolus head in valleculae Soft Palate Elevation: Trace column of contrast/air between soft palate and pharyngeal wall Laryngeal Elevation: Partial superior movement thyroid cart/partial apprx aryt- epig petiole Anterior Hyoid Excursion: Partial anterior movement Epiglottic Movement: Partial inversion Laryngeal Vestibule Closure at Height of Swallow: Incomplete; narrow column of air/contrast in laryngeal vestibule Pharyngeal Stripping Wave: Present - diminished Pharyngoesophageal Segment Opening: Minimal distension and minimal duration; marked obstruction of flow Tongue Base Retraction: Wide column of contrast between tongue base & post. pharyngeal wall Pharyngeal Residue: Majority of contrast within or on pharyngeal structures Esophageal Phase Esophageal Clearance: Esophageal retention w/ retrograde flow below pharyngoesophageal seg. Diagnosis/Impression Diagnosis: Moderate oropharyngeal dysphagia R13.12 Impression: The oral phase is primarily marked by... -Decreased mastication with a small piece of cookie appearing un-chewed and remaining in the pharynx after the first swallow. It cleared w/ independent use of a second swallow; however, un-chewed food may increase risk for choking. -Piecemeal deglutition of cookie. The pharyngeal phase is primarily marked by... -Decreased pharyngeal motility due to decreased TB retraction, pharyngeal stripping wave, and UES opening/duration of opening. >50% of the bolus remained in the pharynx after the first swallow w/ thin by tsp and cookie trial, but majority of the bolus cleared from the pharynx with independent use of multiple swallows. -Consistent laryngeal penetration of thin and mildly thick liquids that did not fully eject after the swallow. Aspiration of thin liquids by tsp (fully ejected 1 of 2 instances w/ reflexive cough), thin liquids via 10cc cup, mildly thick liquids via cup. Reflexive throat clearing throughout the MBSS w/ reflexive cough in response to aspiration during the study. The esophageal phase is primarily marked by... -Very mild esophageal retention of pudding in the lower esophagus w/ some retrograde flow remaining well below the UES. Recommendations Diet: Easy to Chew Textures and Thin Liquids Comment: Intermittent throat clear and re-swallow Compensatory Strategies: Small Bites (Chew thoroughly and moisten dry textures), Slow Rate, Multiple Swallows (3, effortful/hard swallows on EACH SIP), Alternate bites/solids and sips/liquids, Sitting upright and Remain sitting upright for 30 minutes after PO intake Need for Skilled Speech Therapy Services: Yes Comment: HULL GRINDER educated the patient in recommendation for worsening swallow function as compared to previous MBSS and strongly encouraged follow up dysphagia therapy. Pt agreeable. -Train the patient in use of strategies to decrease risk for aspiration. -Ongoing assessment of diet tolerance of recommended textures. -Train the patient oropharyngeal exercise program. Would recommend the patient for participation in [place] [facility] w/ coughing as the clinical indicator of aspiration and hard masticated Level 9 as the starting level for solids and Level 2 as the starting level for liquids. Education Completed: 1. Described result of evaluation., 2. Pt understands evaluation & agrees with goals and treatment plan. and 7. Pt requires further education on strategies & risks. Status Active ST Patient: Active Contact Information [facility] Speech Therapy:: Nancy Conrad M.A. [facility]? Speech-Language Pathologist?? [facility] [address] [place] [address]? [email or web address]?? [phone]
== END | disposition home or self-care (01) ==
LOC: RAD 08:44
PROVIDERS: PCP Nurse Practitioner Primary Care; Referring Provider Student in an Organized Health Care Education/Training Program; Visit Provider Student in an Organized Health Care Education/Training Program
DX: C32.9 Malignant neoplasm of larynx, unspecified (principal)
CPT/HCPCS: 74230; 92611

== ENCOUNTER 2024-10-12 15:30 | Outpatient (RCR) | payer BC, SELFPAY ==
--- NOTE | 2024-08-21 16:20 | HP.SP.EV_ITS ---
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 From 10/06/2021 ? 11/12/2021 he received definitive radiation therapy to the larynx in 28 fractions. Dysphagia Hx: He followed with speech therapy to manage dysphagia during radiation treatment and has attended annual follow up MBSS to assess risk for worsening dysphagia s/p radiation. PNA 2X February 2023-March 2023. MBSS 04/05/2023 revealed mild-moderate pharyngeal dysphagia and recommended Soft and Bite Size Textures and Thin Liquids w/ the following Compensatory Strategies: Small Bites, Small Sips, Slow Rate, Multiple Swallows (Patient completes as needed), Alternate bites/solids and sips/liquids, Sitting upright and Remain sitting upright for 30 minutes after PO intake. FRAUD EXAMINER recommended follow up dysphagia therapy to address worsening swallow function, but the patient did not wish to return to at the time. He still has ~25% of his taste after having COVID-19 twice. He continues to be hoarse. Severe xerostomia upon waking but no issues w/ dry mouth during the day. No odynophagia. He reports having to chew foods thoroughly and take his time. The only food he avoids currently is rice. Pt recently had yearly MBSS to monitor swallow function s/p radiation treatment. It revealed again Mild-moderate oropharyngeal dysphagia w/ aspiration of thin and mildly thickened liquids. FRAUD EXAMINER recommended Easy to Chew textures / Thin liquids w/ strict aspiration precautions. Due to worsening aspiration risk since previous MBSS, FRAUD EXAMINER strongly recommended return to dysphagia treatment for participation in the [place] [facility] ([facility]). Pt agreeable and is here today for BSE to begin OP POC. Smoking Status: Current every day smoker Pain Is pain an issue with your current prescribed condition?: No Personal Preferred language: [place] Patient Allergies Allergies Allergies: Allergies codeine Adverse Reaction (Verified 07/14/24 10:48) Nausea Subjective Dysphagia Symptoms Reported Symptoms/Problems with: Difficulty Swallowing Solids, Food gets stuck, Xerostomia and Hx of Aspiration Other: avoids breads, rice Current Diet Solids Current Diet: Regular Current Diet Liquids Current Liquids: Thin Objective Dysphagia Administered by Administered by: Self Thin Liquids Administred via: Cup and Straw Cough: throat clear Comments: Independent use of multiple, effortful swallows w/ intermittent use of throat clear. He trialed sips via water bottle and via straw. No s/s of aspiration observed in addition to volitional throat clearing. Pureed Administered via: Spoon Cough: none observed/unable to assess Regular Cough: none observed/unable to assess Comments: Timely mastication of pretzel w/ multiple swallows, good oral clearance, no overt s/s of aspiration, independent use of liquid wash. Impact Impact on Safety & Functioning: Risk for Aspiration Recommendations Swallowing Treatment: Yes Diet Texture Recommendations Solids: Easy to Chew (Level 7) Liquids: Thin (Level 0) Other: Intermittent throat clear and re-swallow, Small Bites (Chew thoroughly and moisten dry textures), Slow Rate, Multiple Swallows (3, effortful/hard swallows on EACH SIP), Alternate bites/solids and sips/liquids, Sitting upright and Remain sitting upright for 30 minutes after PO intake Results Swallowing Within Normal Limits: Yes Swallowing Diagnosis: Oropharyngeal Phase Dysphagia (R13.12) Severity: Moderate Subjective Oral Motor Comments Comments: Hoarse vocal quality, but clear speech production Objective Oral Motor Oral Status Dentition: Missing Teeth and Decay Additional: molars, 2 front bottom teeth Labial Impairment: WNL Closure: WNL Pucker: WNL Retraction: WNL Alternating Pucker/Retraction: WNL Lingual Impairment: WNL Observation: Deviated Right Protrusion: WNL Retraction: WNL Lateralization: WNL Lingual Comments Comments: Very slight deviation R Jaw Impairment: WNL Opening: WNL Opening Measurement: 44mm from teeth to teeth Respiratory Status Respiratory Status: Room Air Swallowing Performance Scale Swallowing Performance Scale Swallowing Performance Scale Result: 4 Mild to Moderate Reference: Neuro-QoL instrument Radiation Oncology Patient FOIS Functional Oral Intake Scale Total oral diet with multiple consistencies, but requiring special preparation or compensations: Level 5 Total oral diet with multiple consistencies without special preparation, but with specific food limitations: Level 6 Plan Plan Plan: The patient is recommended for intensive dysphagia therapy to address worsening swallow function and aspiration risk s/p radiation treatment for head and neck cancer. FRAUD EXAMINER recommends the patient for participation in [place] [facility] ([facility]). [facility] is an intensive, systematic exercise therapy program that utilizes motor learning and progressive-load training to improve swallow function. It is high intensity, and is recommended to be completed 4-5X/week X3 weeks. For this patient, coughing is the clinical indicator of aspiration and hard masticated Level 9 is the starting level for solids and Level 2 is the starting level for liquids. Without additional dysphagia therapy, the patient is at risk for worsening swallow function and worsening aspiration risk s/p radiation treatment for laryngeal cancer. Recommendations Treatment Warranted: Dysphagia Progress Prognosis: Good Frequency Frequency: 4-5x /Week Duration: 3-4 weeks Visits in this POC: 15 Goal #1-5 Goal #1: (LTG 1.0) The patient will demonstrate functional effective swallowing of a full (e.g. 400 pina) regular-textured meal following 15 sessions of 1 hour swallowing therapy, characterized by safe completion within 30 minutes, of a multi consistency meal without sign or symptoms of swallowing difficulty and without need for compensation or special maneuvers. Goal #2: (STG 1.1) The patient will consume thin liquids w/o s/s of aspiration and w/o need for compensation or special maneuvers with 80% accuracy for 3 consecutive sessions. Goal #3: (STG 1.2) The patient will consume Easy to Chew textures w/o s/s of aspiration and w/o need for compensation or special maneuvers with 80% accuracy for 3 consecutive sessions. Education Patient Instruction Patient Education: Diagnosis, Treatment Plan, Goals, Safety Precautions and Diet Level Person Taught: Patient Teaching Method: Discussion Response to teaching: Return Demonstration, Verbalize Understanding and Reinforcement Needed
--- NOTE | 2024-12-22 15:35 | HP.SP.DC ---
ST Discharge Summary Discharged: Discharge: Pt recently had MBSS 08/04/2024 to monitor swallow function s/p radiation treatment. It revealed again Mild-moderate oropharyngeal dysphagia w/ aspiration of thin and mildly thickened liquids. SPACE AND STORAGE CLERK recommended Easy to Chew textures / Thin liquids w/ strict aspiration precautions. Due to worsening aspiration risk since previous MBSS, SPACE AND STORAGE CLERK recommended return to dysphagia treatment for participation in the [place] [facility] ([facility]TP). Pt agreeable and participated in 3 weeks of intensive dysphagia intervention w/ repeat MBSS on 10/19/2024 revealing improved pharyngeal motility, but still an aspiration risk with thin liquids (see study for full details). SPACE AND STORAGE CLERK recommended the patient consider additional participation in MDTP; however, the patient politely declined. SPACE AND STORAGE CLERK recommended 1 follow up session to re-train in oropharyngeal home exercise program (Effortful swallows w/ food, Chetna, Sera, Shaker). Pt has not returned for additional visits. Will discharge the patient from OP ST at this time. Please re-consult for dysphagia evaluation if concern for worsening swallow function prior to yearly MBSS to monitor dysphagia and aspiration risk s/p radiation treatment for hx of HNC.
== END 2024-10-12 19:00 | disposition home or self-care (01) ==
LOC: SP 15:30
PROVIDERS: PCP Nurse Practitioner Primary Care; Referring Provider Student in an Organized Health Care Education/Training Program; Visit Provider Student in an Organized Health Care Education/Training Program
DX: C32.9 Malignant neoplasm of larynx, unspecified (principal)
CPT/HCPCS: 92526; 92610

== ENCOUNTER → 2024-10-19 | Outpatient (CLI) | payer BC, SELFPAY ==
--- OUTSIDE RECORDS SUMMARY | 2024-10-19 14:39 | XMS RPT_ITS | CCD ---
Author Organization [facility] Team Providers Care Clinical Physician Assistant Name Role Phone CHU BARRETT Primary Care Physician ([phone]) Nelli LABORATORY OPERATIONS COORDINATOR, LABORATORY OPERATIONS COORDINATOR-C Chu Primary Care Provider [phone] Dr. Yobany Villela Attending Provider Dr. Ubaldo Ray Referring Provider Dr. Yobany Villela Referring Provider [phone] Nelli LABORATORY OPERATIONS COORDINATOR, LABORATORY OPERATIONS COORDINATOR-C Chu Referring Provider [phone] Dr. Srikanth Rea Attending Provider Nelli LABORATORY OPERATIONS COORDINATOR, LABORATORY OPERATIONS COORDINATOR-C Chu Primary Care Provider [phone] Nelli LABORATORY OPERATIONS COORDINATOR, LABORATORY OPERATIONS COORDINATOR-C Chu Referring Provider [phone] Dr. Yobany Villela Attending Provider [phone] CHU BARRETT Primary Care Physician ([phone]) Nelli LABORATORY OPERATIONS COORDINATOR, LABORATORY OPERATIONS COORDINATOR-C Chu Primary Care Provider [phone] Dr. Yobany Villela Attending Provider [phone] Nelli LABORATORY OPERATIONS COORDINATOR, LABORATORY OPERATIONS COORDINATOR-C Chu Primary Care Provider [phone] Dr. Yobany Villela Attending Provider Nelli LABORATORY OPERATIONS COORDINATOR, LABORATORY OPERATIONS COORDINATOR-C Chu Primary Care Provider [phone] Nelli LABORATORY OPERATIONS COORDINATOR, LABORATORY OPERATIONS COORDINATOR-C Chu Referring Provider Robert LABORATORY OPERATIONS COORDINATOR, LABORATORY OPERATIONS COORDINATOR-C Paulette Attending Provider ENRIKETES LOT TECHNICIAN-INBOUND SALES CONSULTANT, CHU Primary Care Unavailabl e BALTES LOT TECHNICIAN-INBOUND SALES CONSULTANT, CHU Attending Unavailabl e BALTES LOT TECHNICIAN-INBOUND SALES CONSULTANT, CHU Primary Care Unavailabl e BALTES LOT TECHNICIAN-INBOUND SALES CONSULTANT, CHU Attending Unavailabl e BALTES LOT TECHNICIAN-INBOUND SALES CONSULTANT, CHU Primary Care Unavailabl e BALTES LOT TECHNICIAN-INBOUND SALES CONSULTANT, CHU Attending Unavailabl e BALTES LOT TECHNICIAN-INBOUND SALES CONSULTANT, CHU Primary Care Unavailabl e CHASE LOT TECHNICIAN-INBOUND SALES CONSULTANT, SHARON Attending Unava francisco Jones LABORATORY OPERATIONS COORDINATOR, LABORATORY OPERATIONS COORDINATOR-C Paulette Referring Provider [phone] Nelli LABORATORY OPERATIONS COORDINATOR, LABORATORY OPERATIONS COORDINATOR-C Chu Referring Provider [phone] Chase LABORATORY OPERATIONS COORDINATOR, LABORATORY OPERATIONS COORDINATOR-C Sharon Attending Provider Salvatore LABORATORY OPERATIONS COORDINATOR, LABORATORY OPERATIONS COORDINATOR-C Sharon Referring Provider Salvatore LABORATORY OPERATIONS COORDINATOR, LABORATORY OPERATIONS COORDINATOR-C Sharon Other Provider ADRIENNE Nugent-C Jannie Bo Attending Provider BALTES LOT TECHNICIAN-INBOUND SALES CONSULTANT, CHU Primary Care Unavailabl e BALTES LOT TECHNICIAN-INBOUND SALES CONSULTANT, CHU Attending Unavailabl e BALTES LOT TECHNICIAN-INBOUND SALES CONSULTANT, CHU Attending Unavailabl e BALTES LOT TECHNICIAN-INBOUND SALES CONSULTANT, CHU Primary Care Unavailabl e BALTES LOT TECHNICIAN-INBOUND SALES CONSULTANT, CHU Primary Care Unavailabl e BALTES LOT TECHNICIAN-INBOUND SALES CONSULTANT, CHU Attending Unavailabl e BALTES LOT TECHNICIAN-INBOUND SALES CONSULTANT, CHU Primary Care Unavailabl e BALTES LOT TECHNICIAN-INBOUND SALES CONSULTANT, CHU Attending Unavailabl e Baltes LABORATORY OPERATIONS COORDINATOR-C, Chu Primary Care Provider [phone] Baltes LABORATORY OPERATIONS COORDINATOR-C, Chu Referring Provider Dr. Yobany Villela DO Attending Provider Dr. Yobany Villela DO Referring Provider Baltes LABORATORY OPERATIONS COORDINATOR, Chu Primary Care Unavailable Baltes LABORATORY OPERATIONS COORDINATOR, Chu Referring Unavailable Ronny Villelae Attending Unavailable Baltes LABORATORY OPERATIONS COORDINATOR, Chu Primary Care Unavailable Yobany Villela Attending Unavailable Ronny Villelae Referring Unavailable Baltes LABORATORY OPERATIONS COORDINATOR, Chu Primary Care Unavailable Baltes LABORATORY OPERATIONS COORDINATOR, Chu Referring Unavailable Chase LABORATORY OPERATIONS COORDINATOR, Sharon Attending Unavailable Baltes LABORATORY OPERATIONS COORDINATOR, Chu Primary Care Unavailable Ronny Villelae Attending Unavailable Baltes LABORATORY OPERATIONS COORDINATOR, Chu Primary Care Unavailable Margret Yobany Attending Unavailable Margret, Yobany Referring Unavailable Baltes LABORATORY OPERATIONS COORDINATOR, Chu Primary Care Unavailable Chase LABORATORY OPERATIONS COORDINATOR, Sharon Attending Unavailable Chase LABORATORY OPERATIONS COORDINATOR, Sharon Referring Unavailable Allergies Allergy Classification Reported Allergen(s) Allergy Type Date of Onset Reaction(s) Facility (20 sources) Codeine; Translations: [codeine] Drug Allergy 3 passed out, nausea [facility] (1 source) Codeine Drug Allergy 5 [facility] Repository Medications Current Medications Medication Drug Class(es) Dates Sig (Normalized) Sig (Original) [id number] 200 actuat albuterol 0.09 mg/actuat metered dose inhaler (3 sources) beta2-Adrenergic Agonist Start: 06-23-2023 Albuterol Sulfate 90 mcg/actuation HFA aerosol inhaler Active 2 NMA INHALATION June 23, 2023 12:00am Start: 06-23-2023 Albuterol Sulf ate Active 2 PUFF INHALATION June 23, 2023 12:00am albuterol MDI (90 mcg/inh) CFC free inhalation aerosol (4 sources) Start: 01-05-2023 take 2 puff(s) by inhalation every four hours as needed for wheezing albuterol MDI (90 mcg/inh) CFC free inhalation aerosol 2 puff(s), Inhalation, q4h, PRN as needed for wheezing, # 18 gram(s), 0 Refill(s), Pharmacy: [facility]/pharmacy #[id number], Productive cough, 179, cm, 01/05/23 9:40:00 EDT, Height, kg, 01/05/23 9:40:00 EDT, Dosing Weight Start Date: 01/05/23 Status: Ordered amoxicillin 875 mg / clavulanate 125 mg oral tablet (1 source) Penicillin-class Antibacterial Start: 04-27-2022 End: 05-07-2022 take 1 tablet by mouth every twelve hours amoxicillin-clavu lanate 875 mg-125 mg oral tablet 1 tab(s), Oral, q12h, X 10 day(s), # 20 tab(s), 0 Refill(s), 05/07/22 16:44:00 EST, Pharmacy: [facility]/pharmacy #[id number], 180, cm, 04/27/22 7:56:00 EST, Height, 82.6 Start Date: 04/27/22 Stop Date: 05/07/22 Status: Ordered aspirin 500 mg / caffeine 32.5 mg oral tablet (13 sources) Platelet Aggregation Inhibitor, Nonsteroidal Anti-inflammatory Drug, Central Nervous System Stimulant, Methylxanthine Start: 06-08-2023 Aspirin-Caffeine (Keerthi Back And Body) 500-32.5 mg tablet Active 1 {tbl} PO June 08, 2023 12:00am On Hold: Ordered Start: 12-18-2021 take 1 tablet by jadiel th every six hours as needed for pain Keerthi Back and Body 500 mg-32.5 mg oral tablet Dose = 2 tab(s), Oral, q6h, PRN as needed for pain, 0 Refill(s) Start Date: 12/18/21 Status: Ordered Start: 06-25-2021 take 1 tablet by jadiel th every six hours as needed for pain Keerthi Back and Body 500 mg-32.5 mg oral tablet Dose = 2 tab(s), Oral, q6h, PRN as needed for pain, 0 Refill(s) Start Date: 06/25/21 Status: Ordered Azithromycin 5 Day Dose Pack 250 mg oral tablet (1 source) Start: 04-05-2024 End: 04-10-2024 Azithromycin 5 Day Dose Pack 250 mg oral tablet Take two (2) tablets day 1-then one (1) tablet, Oral, Daily, X 5 day(s), # 6 tab(s), 0 Refill(s), 04/10/24 12:05:00 PM EST, Pharmacy: [facility]/pharmacy #[id number], COPD exacerbation, 177.8, cm, 04/05/24 8:14:00 EST, Height, 86, kg, 04/05/24 8:14:00 EST, Dosing Weight Start Date: 04/05/24 Stop Date: 04/10/24 Status: Ordered Quantity: 6.0 Unit: tab(s) Repeat number: 1 Indication: Chronic obstructive pulmonary disease with (acute) exacerbation Keerthi Back and Body 500 mg-32.5 mg oral tablet (1 source) Start: 12-18-2021 take 1 tablet by mouth every six hours as needed for pain Keerthi Back and Body 500 mg-32.5 mg oral tablet Dose = 2 tab(s), Oral, q6h, PRN as needed for pain, 0 Refill(s) Start Date: 12/18/21 Status: Ordered Repeat number: 1 busPIRone hydrochloride 5 mg oral tablet (18 sources) Start: 06-23-2023 take 1 tablet by mouth twice daily as needed for anxiety Buspirone 5 mg tablet Active 5 mg PO TWICE A DAY as needed for anxiety June 23, 2023 12:00am Start: 09-18-2021 End: 06-08-2023 take 1 tablet by mouth three times daily Buspirone 7.5 mg tablet Discontinued 7.5 mg PO THREE TIMES A DAY September 18, 2021 12:00am June 08, 2023 12:52pm [facility] Multi-Symptom Cold and Flu (2 sources) Start: 01-05-2023 [facility] Multi-Symptom Cold and Flu Oral, q4h, 0 Refill(s) Start Date: 01/05/23 Status: Ordered naproxen sodium 220 mg oral tablet (6 sources) Nonsteroidal Anti-inflammatory Drug Start: 12-18-2021 take 1 capsule by mouth every eight hours as needed for pain Aleve 220 mg oral tablet 1 cap(s), Oral, q8h, PRN as needed for pain, 0 Refill(s) Start Date: 12/18/21 Status: Ordered Start: 06-25-2021 take 1 capsule by mo [facility] every eight hours as needed for pain Aleve 220 mg oral tablet 1 cap(s), Oral, q8h, PRN as needed for pain, # 40 cap(s), 0 Refill(s) Start Date: 06/25/21 Status: Ordered omeprazole 40 mg delayed release oral capsule (17 sources) Proton Pump Inhibitor Start: 12-24-2023 End: 06-21-2024 omeprazole 40 mg oral delayed release capsule Dose : 40 mg = 1 cap(s), Oral, qDay, # 90 cap(s), 1 Refill(s), Pharmacy: [facility]/pharmacy #[id number], GERD (gastroesophageal reflux disease), 177.8, cm, 12/24/23 10:34:00 EDT, Height, kg, 12/24/23 10:34:00 EDT, Dosing Weight Start Date: 12/24/23 Stop Date: 06/21/24 Status: Ordered Quantity: 90.0 Unit: cap(s) Repeat number: 2 Indication: Gastro-esophageal reflux disease without esophagitis Start: 04-27-2022 omeprazole 40 mg oral delayed release capsule Dose : 40 mg = 1 cap(s), Oral, qDay, # 30 cap(s), 0 Refill(s) Start Date: 04/27/22 Status: Ordered Start: 07-29-2021 End: 09-23-2021 take 1 capsule by mouth once daily Omeprazole 40 mg Capsule,Delayed Release(Dr/Ec) Discontinued 40 mg PO DAILY July 29, 2021 12:00am September 23, 2021 1:05pm polyethylene glycol 3350 with electrolytes oral powder for reconstitution (1 source) Start: 11-11-2022 polyethylene glycol 3350 with electrolytes oral powder for reconstitution See Instructions, As directed by provider at [facility] # 1 EA, 0 Refill(s), Pharmacy: [facility]/pharmacy #[id number], Colon cancer screening, 180.3, cm, 11/11/22 15:06:00 EDT, Height, kg, 11/11/22 15:06:00 EDT, Dosing Weight Start Date: 11/11/22 Status: Ordered Robitussin Cough + Chest Congestion DM 20 mg-200 mg/20 mL oral liquid (2 sources) Start: 06-25-2023 Robitussin Cough + Chest Congestion DM 20 mg-200 mg/20 mL oral liquid Dose = 20 mL, Oral, q4h, PRN as needed for cough, UNSURE WHICH ONE. not to exceed 6 doses/day, # 120 mL, 0 Refill(s) Start Date: 06/25/23 Status: Ordered traZODone hydrochloride 50 mg oral tablet (18 sources) Serotonin Reuptake Inhibitor Start: 06-23-2023 take 1 tablet by mouth at bedtime as needed for sleep Trazodone 50 mg tablet Active 50 mg PO AT BEDTIME as needed for sleep June 23, 2023 12:00am Start: 09-23-2021 End: 06-08-2023 take 1 tablet by mouth at bedtime as needed for sleep Trazodone 50 mg tablet Discontinued 50 mg PO AT BEDTIME as needed for Sleep September 23, 2021 12:00am June 08, 2023 12:52pm {11 (varenicline 0.5 MG Oral Tablet [Chantix]) / 42 (varenicline 1 MG Oral Tablet [Chantix]) } Pack [Chantix First Month of Therapy] (3 sources) Partial Cholinergic Nicotinic Agonist Start: 03-20-2022 take 1-3 tablets by mouth once, then take 4-7 tablets by mouth once daily, then take 8 tablets by mouth twice daily, then take 1 mg by mouth twice daily Chantix Starter Pack 0.5 mg-1 mg oral tablet See Instructions, Day 1-3: 0.5mg once a day Day 4-7: 0.5mg twice a day Day 8 and after: 1 mg twice a day, # 1 packet(s), 0 Refill(s), Pharmacy: [facility]/pharmacy #[id number], 179.07, cm, 03/20/22 8:52:00 EST, Height Start Date: 03/20/22 Status: Ordered Completed/Discontinued Medications Medication Drug Class(es) Dates Sig (Normalized) Sig (Original) aspirin 81 mg oral tablet (11 sources) Platelet Aggregation Inhibitor, Nonsteroidal Anti-inflammatory Drug Start: 07-29-2021 End: 09-23-2021 take 1 capsule by mouth once daily Aspirin 81 mg Capsule Discontinued 81 mg PO DAILY July 29, 2021 12:00am September 23, 2021 1:04pm Start: 07-10-2014 aspirin Dose : 81 mg =, qDay Start Date: 07/10/14 Status: Ordered dextromethorphan hydrobromide 30 mg oral tablet (10 sources) Uncompetitive O-arnxbo-V-aspartate Receptor Antagonist, Sigma-1 Agonist Start: 07-29-2021 End: 03-02-2022 Dextromethorphan Hbr (Delsym) 30 mg/5 mL Liquid Discontinued 30 mg PO NEEDED as needed for Cough July 29, 2021 12:00am March 02, 2022 12:07pm 12 hr guaiFENesin 1200 mg extended release oral tablet (10 sources) Start: 07-29-2021 End: 03-02-2022 take 1 tablet by mouth twice daily as needed for cough, then take 1 tablet by mouth every twelve hours as needed for cough Guaifenesin (Mucinex) 1,200 mg Tablet Extended Release 12hr Discontinued 1200 mg PO TWICE A DAY as needed for Cough July 29, 2021 12:00am March 02, 2022 12:07pm Magic Mouth Wash (Bmx) (7 sources) Start: 10-22-2021 End: 06-04-2022 take 15 mL by mouth four times daily as needed for pain Magic Mouth Wash (Bmx) Discontinued 15 ML PO .qid 180 October 21, 2021 11:00pm June 04, 2022 2:44pm take 15 mL swoosh and swallow PO QID prn pain Start: 10-22-2021 End: 06-04-2022 take 15 mL by mouth four times daily as needed for pain Magic Mouth Wash (Bmx) Discontinued 15 ML PO .qid 180 October 22, 2021 12:00am June 04, 2022 3:44pm take 15 mL swoosh and swallow PO QID prn pain Start: 10-22-2021 take 15 mL by mouth four times daily as needed for pain Magic Mouth Wash (Bmx) Active 15 ML PO .qid 180 October 21, 2021 11:00pm take 15 mL swoosh and swallow PO QID prn pain Start: 10-22-2021 take 15 mL by mouth four times daily as needed for pain Magic Mouth Wash (Bmx) Active 15 ML PO .qid 180 October 22, 2021 12:00am take 15 mL swoosh and swallow PO QID prn pain Magic Mouth Wash (Bmx) 180 mL suspension (1 source) Start: 10-22-2021 End: 06-04-2022 take 15 mL by mouth four times daily as needed for pain Magic Mouth Wash (Bmx) 180 mL suspension Discontinued 15 mL PO .qid as needed for pain 180 October 22, 2021 12:00am June 04, 2022 3:44pm take 15 mL swoosh and swallow PO QID prn pain oxyCODONE hydrochloride 1 mg/ml oral solution (14 sources) Opioid Agonist Start: 11-12-2021 End: 11-22-2021 take 5 mL by mouth every four to six hours as needed for pain Oxycodone 5 mg/5 mL solution Discontinued 5 mg PO Q4H as needed for pain 250 10 November 12, 2021 November 21, 2021 12:00am November 22, 2021 12:04am take 5 mL PO q4-6 hours prn pain Start: 10-29-2021 End: 11-08-2021 take 5 mL by mouth every four to six hours as needed for pain Oxycodone 5 mg/5 mL solution Discontinued 5 mg PO Q4H as needed for pain 250 10 October 29, 2021 November 07, 2021 12:00am November 08, 2021 12:06am take 5 mL PO q4-6 hours prn pain predniSONE 10 mg oral tablet (2 sources) Start: 03-19-2023 End: 03-25-2023 take 1 tablet by mouth once daily prednisone 10mg tab (TAPER) Taper 40-20-10 mg x 2 days each dose, Oral, Daily, # 14 tab(s), 0 Refill(s), Pharmacy: [facility]/pharmacy #[id number], Wheezing, 179, cm, 01/05/23 9:40:00 EDT, Height, kg, 01/05/23 9:40:00 EDT, Dosing Weight Start Date: 03/19/23 Stop Date: 03/25/23 Status: Ordered silver sulfADIAZINE 10 mg/ml topical cream (7 sources) Sulfonamide Antibacterial Start: 11-10-2021 End: 06-04-2022 Silver Sulfadiazine 1 % cream Discontinued 1 NMA TOPICAL TWICE A DAY November 10, 2021 12:00am June 04, 2022 3:44pm apply a 1.5 mm thickness twice daily over moist peeling Problems Active Problems Problem Classification Problem Date Documented Da te Episodic/Chronic Alcohol-related disorders (10 sources) Alcohol abuse; Translations: [Alcohol abuse, uncomplicated] 09-26-2021 Chronic Allergic reactions (7 sources) Radiation dermatitis; Translations: [Radiodermatitis, unspecified] 11-10-2021 Episodic Anxiety disorders (19 sources) Anxiety; Translations: [Claustrophobia] 08-22-2021 Chronic Cancer of head and neck (20 sources) Primary malignant neoplasm of larynx; Translations: [Malignant neoplasm of larynx, unspecified] Onset: 08-08-2024 Chronic Cardiac dysrhythmias (1 source) Unspecified atrial fibrillation; Translations: [Unspecified atrial fibrillation] Chronic Chronic kidney disease (10 sources) Chronic kidney disease stage 2; Translations: [Chronic kidney disease] 12-18-2021 Chronic Chronic obstructive pulmonary disease and bronchiectasis (5 sources) Chronic obstructive lung disease; Translations: [Chronic obstructive pulmonary disease, unspecified] 06-23-2023 Chronic Comment on above: FEV1 77% Disorders of lipid metabolism (10 sources) Hyperlipidemia 06-24-2021 Chronic Esophageal disorders (8 sources) Radiation esophagitis; 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] 10-22-2021 Episodic Essential hypertension (14 sources) Hypertensive disorder; Translations: [Essential (primary) hypertension] Onset: 06-25-2023 06-24-2021 Chronic Heart valve disorders (10 sources) Mitral valve prolapse 06-24-2021 Chronic Other bone disease and musculoskeletal deformities (9 sources) Costal chondritis 04-27-2022 Episodic Other gastrointestinal disorders (1 source) Dysphagia, oropharyngeal phase; Translations: [Dysphagia, oropharyngeal phase] Onset: 10-11-2024 Episodic Other injuries and conditions due to external causes (3 sources) Contusion; Translations: [Other injury of unspecified body region, initial encounter] 06-23-2023 Episodic Other lower respiratory disease (10 sources) Chronic cough 06-25-2021 Episodic Other lower respiratory disease (11 sources) Dyspnea; Translations: [Dyspnea, unspecified] 06-25-2021 Episodic Other lower respiratory disease (4 sources) Solitary nodule of lung; Translations: [Solitary pulmonary nodule] 06-08-2023 Episodic Other lower respiratory disease (3 sources) Solitary pulmonary nodule; Translations: [Solitary pulmonary nodule] 06-08-2023 Episodic Other lower respiratory disease (3 sources) Lung mass; Translations: [Other nonspecific abnormal finding of lung field] 06-23-2023 Episodic Other nervous system disorders (10 sources) Numbness and tingling sensation of skin 06-25-2021 Episodic Other screening for suspected conditions (not mental disorders or infectious disease) (18 sources) Imaging of lung abnormal ; Translations: [Abnormal results of pulmonary function studies] 03-02-2022 Episodic Other upper respiratory disease (10 sources) Hoarse 06-25-2021 Episodic Other upper respiratory disease (4 sources) Disorder of the larynx; Translations: [Other diseases of larynx] 08-05-2021 Episodic Other upper respiratory disease (3 sources) Other diseases of larynx; Translations: [Other diseases of larynx, not elsewhere classified] Episodic Other upper respiratory disease (6 sources) Mass of neck; Translations: [Other diseases of larynx] 08-05-2021 Episodic Other upper respiratory infections (9 sources) Sinusitis 04-27-2022 Chronic Pleurisy; pneumothorax; pulmonary collapse (17 sources) Other pulmonary collapse; Translations: [Pulmonary collapse] Episodic Pneumonia (except that caused by tuberculosis or sexually transmitted disease) (9 sources) Pneumonia 04-27-2022 Episodic Poisoning by other medications and drugs (8 sources) Mucositis following radiation therapy; Translations: [Oral mucositis (ulcerative) due to radiation] 10-22-2021 Episodic Residual codes; unclassified (10 sources) Insomnia; Translations: [Insomnia, unspecified] 08-28-2021 Episodic Residual codes; unclassified (2 sources) Other general symptoms and signs; Translations: [Other general symptoms and signs] Onset: 04-05-2024 Episodic Substance-related disorders (20 sources) Nicotine dependence with current use; Translations: [Nicotine dependence, unspecified, uncomplicated] Chronic Comment on above: cigars x 40yrs Unclassified (20 sources) Patient encounter status 06-25-2021 Unclassified (9 sources) History of SARS-CoV-2 03-20-2022 Past or Other Problems Problem Classification Problem Date Documented Da te Episodic/Chronic Neoplasms of unspecified nature or uncertain behavior (18 sources) Neoplasm of larynx; Translations: [Neoplasm of uncertain behavior of larynx] Onset: 07-16-2021 07-17-2021 Episodic Comment on above: [facility] Other lower respiratory disease (5 sources) Other nonspecific abnormal finding of lung field; Translations: [Swelling, mass, or lump in chest] Onset: 11-16-2023 06-23-2023 Episodic Other upper respiratory disease (9 sources) Dysphonia Onset: 07-16-2021 07-17-2021 Episodic Comment on above: [facility] Results Test Name Value Interpretation Reference Range Facility [email or web address] 08-21-2024 SP/[email or web address] [facility] [address] [place] [address]. [address] [place] [address] / REHABILITATION SERVICES INITIAL EVALUATION MR#: [id number] Acct: [id number] Name: MATHEW WHITING Rep #: [id number] : 1955 68 From: Nancy Conrad M.A., [facility]-COPYRIGHT EXPERT Referring Dr.: Dr. 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 From 10/06/2021 ??? 11/12/2021 he received definitive radiation therapy to the larynx in 28 fractions. Dysphagia Hx: He followed with speech therapy to manage dysphagia during radiation treatment and has attended annual follow up MBSS to assess risk for worsening dysphagia s/p radiation. PNA 2X February 2023-March 2023. MBSS 04/05/2023 revealed mild-moderate pharyngeal dysphagia and recommended Soft and Bite Size Textures and Thin Liquids w/ the following Compensatory Strategies: Small Bites, Small Sips, Slow Rate, Multiple Swallows (Patient completes as needed), Alternate bites/solids and sips/liquids, Sitting upright and Remain sitting upright for 30 minutes after PO intake. COPYRIGHT EXPERT recommended follow up dysphagia therapy to address worsening swallow function, but the patient did not wish to return to at the time. He still has 25% of his taste after having COVID-19 twice. He continues to be hoarse. Severe xerostomia upon waking but no issues w/ dry mouth during the day. No odynophagia. He reports having to chew foods thoroughly and take his time. The only food he avoids currently is rice. Pt recently had yearly MBSS to monitor swallow function s/p radiation treatment. It revealed again Mild-moderate oropharyngeal dysphagia w/ aspiration of thin and mildly thickened liquids. COPYRIGHT EXPERT recommended Easy to Chew textures / Thin liquids w/ strict aspiration precautions. Due to worsening aspiration risk since previous MBSS, COPYRIGHT EXPERT strongly recommended return to dysphagia treatment for participation in the [facility] ([facility]). Pt agreeable and is here today for BSE to begin OP POC. Smoking Status: Current every day smoker Pain Is pain an issue with your current prescribed condition?: No Personal Preferred language: Tamazight Patient Allergies Allergies Allergies: Allergies codeine Adverse Reaction (Verified 07/14/24 10:48) Nausea Subjective Dysphagia Symptoms Reported Symptoms/Problems with: Difficulty Swallowing Solids, Food gets stuck, Xerostomia and Hx of Aspiration Other: avoids breads, rice Current Diet Solids Current Diet: Regular Current Diet Liquids Current Liquids: Thin Objective Dysphagia Administered by Administered by: Self Thin Liquids Administred via: Cup and Straw Cough: throat clear Comments: Independent use of multiple, effortful swallows w/ intermittent use of throat clear. He trialed sips via water bottle and via straw. No s/s of aspiration observed in addition to volitional throat clearing. Pureed Administered via: Spoon Cough: none observed/unable to assess Regular Cough: none observed/unable to assess Comments: Timely mastication of pretzel w/ multiple swallows, good oral clearance, no overt s/s of aspiration, independent use of liquid wash. Impact Impact on Safety Functioning: Risk for Aspiration Recommendations Swallowing Treatment: Yes Diet Texture Recommendations Solids: Easy to Chew (Level 7) Liquids: Thin (Level 0) Other: Intermittent throat clear and re-swallow, Small Bites (Chew thoroughly and moisten dry textures), Slow Rate, Multiple Swallows (3, effortful/hard swallows on EACH SIP), Alternate bites/solids and sips/liquids, Sitting upright and Remain sitting upright for 30 minutes after PO intake Results Swallowing Within Normal Limits: Yes Swallowing Diagnosis: Oropharyngeal Phase Dysphagia (R13.12) Severity: Moderate Subjective Oral Motor Comments Comments: Hoarse vocal quality, but clear speech production Objective Oral Motor Oral Status Dentition: Missing Teeth and Decay Additional: molars, 2 front bottom teeth Labial Impairment: WNL Closure: WNL Pucker: WNL Retraction: WNL Alternating Pucker/Retraction: WNL Lingual Impairm (more content not included)... Normal [facility] Modified Barium Swallow Stud [facility] 08-04-2024 Modified Barium Swallow Study [facility] Speech Pathology [address] [address] Modified Barium Swallow Study MR#: [id number] Acct: [id number] Name: MATHEW WHITING Rep #: [id number] : 1955 68 From: Nancy Conrad M.A., [facility]-COPYRIGHT EXPERT Modified Barium Swallow Patient Information Study Date: 08/04/24 Study Time: 09:00 Direct Billable Minutes: 116 Total Minutes procedure reportin Diagnosis: Primary cancer of the larynx C32.9 Referring Physician: Yobany Villela Reason for Referral: Assess swallow function, assess risk for aspiration, and determine recommendations for least restrictive diet textures and compensatory strategies to improve safety of swallow. 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 From 10/06/2021 ??? 11/12/2021 he received definitive radiation therapy to the larynx in 28 fractions. Dysphaiga Hx: He followed with speech therapy to manage dysphagia during radiation treatment and has attended annual follow up MBSS to assess risk for worsening dysphagia s/p radiation. PNA 2X February 2023-March 2023. MBSS 04/05/2023 revealed mild-moderate pharyngeal dysphagia and recommended Soft and Bite Size Textures and Thin Liquids w/ the following Compensatory Strategies: Small Bites, Small Sips, Slow Rate, Multiple Swallows (Patient completes as needed), Alternate bites/solids and sips/liquids, Sitting upright and Remain sitting upright for 30 minutes after PO intake. COPYRIGHT EXPERT recommended follow up dysphagia therapy to address worsening swallow function, but the patient did not wish to return to at the time. He still has 25% of his taste after having COVID-19 twice. He continues to be hoarse. ???Severe xerostomia upon waking but no issues w/ dry mouth during the day. No odynophagia. He reports having to chew foods thoroughly and take his time. The only food he avoids currently is rice. Current Diet Ordered: Regular textures (no rice) / Thin liquids Dentition: Natural Teeth and Missing Teeth Mental Status: WNL Respiratory Status: Oxygenating on Room Air Penetration-Aspirati on Scale Penetration-Aspirati on Scale: OBJECTIVE ASSESSMENT OF SWALLOW FUNCTION (QUANTITATIVE ??? PER TRIAL): PENETRATION / ASPIRATION SCALE (DIAZ): 1 = does not enter airway 2 = enters airway/above vocal folds/ejected 3 = enters airway/above vocal folds/not ejected 4 = enters airway/contacts vocal folds/ejected 5 = enters airway/contacts vocal folds/not ejected 6 = enters airway/below vocal folds/ejected 7 = enters airway/below vocal folds/not ejected despite effort 8 = enters airway/below vocal folds/no effort VIDEOFLOROSCOPIC SCALE SCORE (DIAZ): Grade I = aspiration of material that has penetrated into the laryngeal vestibule, intact cough reflex Grade II = aspiration < 10 % of the bolus, intact cough reflex Grade III = aspiration of < 10 % of the bolus, reduced cough reflex or aspiration of > 10 % of the bolus, intact cough reflex Grade IV = aspiration of > 10 % of the bolus, reduced cough reflex Penetration-Aspirati on Scale Score Thin Liquid 5mL : Result: 7= enters airways/below vocal folds/not ejected despite effort Thin Liquid 5mL Trial 2 - Head tilt backwards, patient reported this helps him to swallow: Result: 6= enters airway/below vocal folds/ejected Thin Liquid via large single sip: cup: Result: 5= enters airways/contacts vocal folds/not ejected Thin Liquid 10mL: Result: 5= enters airways/contacts vocal folds/not ejected Comment: post prandial aspiration Dickens Thick Liquid via small single sip: cup: Result: 7= enters airways/below vocal folds/not ejected despite effort Dickens/Mildly Thick Liquid 10mL: Result: 3= enters airways/above vocal folds/not ejected Comment: post prandial aspiration Dickens/Mildly Thick Liquid 5mL: Result: 3= enters airways/above vocal folds/not ejected Dickens/Mildly Thick Liquid 5mL Trial 2: Result: 3= enters airways/above vocal folds/not ejected Pudding 10mL: Result: 1= does not enter airway 1/2 Cookie: Result: 1= does not enter airway Thin Liquid via single sip: straw: Result: 1= does not enter airway Thin Liquid via single sip: straw Trial 2: Result: 5= enters airways/contacts vocal folds/not ejected Thin Liquid via single sip: straw - cued 3, effortful swallows: Result: 3= enters airways/above vocal folds/not ejected Thin Liquid via single sip: straw Trial 2 - cued 3, effortful swallows: Result: 3= enters airways/above vocal folds/not ejected Oral Phase Labial Seal: No Labial Escape Tongue Control During Bolus Hold: Escape to lateral buccal cavity/floor of mouth (P (more content not included)... Normal [facility] Radiation Oncology Visiton 0 07-14-2024 Radiation Oncology Visit [facility] [address] [place] [address] OFFICE VISIT Date of Service: 07/14/24 1043 MR#: [id number] Acct: [id number] Name: MATHEW WHITING Rep #: [id number] : 1955 From: Yobany Margret DO Age/Sex: 68/M [place] [facility] [place] Status: Signed Intake Vital Signs 12/13/23 15:21 07/14/24 10:50 Height 5 ft 11 in 5 ft 11 in Weight: 179 lb 183 lb 8 oz BMI 25.0 25.6 BP 146/71 H 145/82 H Blood Pressure Location Rt brachial Lt brachial Position Sitting Sitting Respiration 16 18 Pulse 76 72 Pulse Source Monitor Monitor Temp 98.4 F 98.0 F Temperature Source Temporal Artery Temporal Artery Pulse Oximetry (%) 94 94 Oxygen Delivery Method room air room air Intake Visit Reasons: 6 MONTH F/U H/N Is patient in pain?: No Allergies codeine Adverse Reaction (Verified 07/14/24 10:48) Nausea Medications ???Medication ???Instructions ???Recorded ???Confirmed ???Type aspirin-caffeine 500 mg-32.5 mg 1 tab PO 06/08/23 07/14/24 History tablet (Keerthi Back and Body) Held on 07/06/23. Instructions: Ordered albuterol sulfate 90 mcg/actuation 2 puff inhalation 06/23/2307/14 History aerosol inhaler buspirone 5 mg tablet 5 mg PO BID PRN anxiety 06/23/23 0 07/14/24 History trazodone 50 mg tablet 50 mg PO QHS PRN sleep 06/23/23 History Have you fallen in the past year?: No PFSH PFSH Medical History Solitary lung nodule Pneumonia Encounter for screening for malignant neoplasm of lung COVID Cancer Ocular hypertension Wears glasses Poor dentition Alcohol use Nail fungus Bruising Arthritis Easy bruising COPD (chronic obstructive pulmonary disease) Hoarseness Smoker Home Medications ???Medication ???Instructions ???Recorded ???Last Taken ???Type aspirin-caffeine 500 mg-32.5 mg 1 tab PO 06/08/23 06/30/23 History tablet (Keerthi Back and Body) Held on 07/06/23. Instructions: MD Ordered albuterol sulfate 90 mcg/actuation 2 puff inhalation 06/23/23 Unkno wn History aerosol inhaler buspirone 5 mg tablet 5 mg PO BID PRN anxiety 06/23/23 U nknown History trazodone 50 mg tablet 50 mg PO QHS PRN sleep 06/23/23 Un known History Allergy/AdvReac Type Severity Reaction Status Date / Time codeine AdvReac Nausea Verified 07/14/24 10:48 Family History Father Cancer lung Mother Cancer unspecified Sister Cancer unspecified Surgical History Hx of surgical procedure Social History Smoking Status: Current every day smoker tobacco type: cigars second hand exposure: Yes Diagnosis: Mathew Whiting is a 68 year-old male diagnosed with 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 From 10/06/2021 ??? 11/12/2021 he received definitive radiation therapy to the larynx. History of Present Illness: 08/01/2021: Patient was eval by ENT due to chronic history of hoarseness. 08/05/2021: Patient completed direct laryngoscopy with biopsy.??? There is noted to be a 2 cm granular left supraglottic mass that did not involve the cord but potentially the anterior area of the supraglottis, biopsy was taken with cup biting forceps.??? Pathology was consistent with invasive moderately differentiated squamous cell carcinoma. 08/27/2021: PET scan was performed.??? This demonstrated a discrete nodule with abnormal FDG activity along the anterior left vocal cord measuring 1.1 x 1.3 cm.??? There is evidence for right middle lobe collapse/atelectasis .??? No other evidence of disease is appreciated. 08/29/2021: CT neck with contrast was performed.??? This demonstrated no evidence of abnormality including no clear evidence of laryngeal mass and no evidence of cervical adenopathy. 09/16/2021: Patient was evaluated by ENT.??? NPL demonstrated an exophytic lesion involving the left vocal cord, this lesion is fairly bulky and seems deep into the vocal cord but the vocal cord still is moving.??? Airway is adequate.??? No other abnormalities are appreciated.??? Discussed options for treatment and recommended proceeding with radiation therapy. From 10/06/2021 ??? 11/12/2021: received 6300 cGy of 6 MV photons in 28 fractions to the Larynx with a 3D conformal technique. 02/25/2022: PET scan was performed. This demonstrated increased FDG concentration identified in the left upper lung and right lower lung field which may necessitate investigation secon (more content not included)... Normal [facility] 06-23-2024 U Creatinine 76.4 mg/dL Normal [facility] Comment on above: Performed By: #### M ALBR #### [address] [address] U Microalb 4.0 mg/L Normal [facility] Comment on above: Performed By: #### M ALBR #### [address] [address] U Ratio Alb/Cre 5 mg/G Normal 0-30 [facility] Comment on above: Performed By: #### M ALBR #### [address] [address] CVFLURVon 04-05-2024 FLU A PCR Negative Normal Negative [facility] Comment on above: Performed By: #### C VFLURV #### [place] [address] FLU B PCR Negative Normal Negative [facility] Comment on above: Performed By: #### C VFLURV #### [place] [address] RSV PCR Negative Normal Negative [facility] Comment on above: Performed By: #### C VFLURV #### [place] [address] SARS-CoV-2 (COVID-19) RNA JEMMA+probe Ql (Unsp spec) Negative Normal Negative [facility] Comment on above: Result Comment: Resu lts from the Xpert Xpress CoV-2/Flu/RSV plus test should be correlated with the clinical history, epidemiological data, and other data available to the clinical evaluating the patient. Performance of the Xpert Xpress CoV-2/Flu/RSV plus test has only been established in nasopharyngeal swab specimen. Erroneous test results might occur from improper specimen collection, failure to follow the recommended sample collection, handling and storage procedures, technical error, or sample mix-up. False negative results may occur if a virus is present at a level below the analytical limit of detection. Viral nucleic acid may persist in vivo, independent of virus viability. Detection of analyte target(s) does not imply that the corresponding virus(es) are infectious or are the causative agents for clinical symptoms. Recent patient exposure to FluMist or other live attenuated influenza vaccines may cause inaccurate positive results. Performed By: #### C VFLURV #### [place] [address] LABORATORYOrdered By: Phuc Larios on 04-05-2024 FLUAV RNA JEMMA+probe Ql (Resp) Negative (04/05/24 8:36 AM) Normal AO Auto Urine SS FLUBV RNA JEMMA+probe Ql (Resp) Negative (04/05/24 8:36 AM) Normal AO Auto Urine SS RSV RNA JEMMA+probe Ql (Resp) Negative (04/05/24 8:36 AM) Normal AO Auto Urine SS SARS-CoV-2 (COVID-19) RNA JEMMA+probe Ql (Resp) Negative 1 (04/05/24 8:36 AM) Normal AO Auto Urine SS Comment on above: Interpretive Data: R esults from the Xpert Xpress CoV-2/Flu/RSV plus test should be correlated with the clinical history, epidemiological data, and other data available to the clinical evaluating the patient. Performance of the Xpert Xpress CoV-2/Flu/RSV plus test has only been established in nasopharyngeal swab specimen. Erroneous test results might occur from improper specimen collection, failure to follow the recommended sample collection, handling and storage procedures, technical error, or sample mix-up. False negative results may occur if a virus is present at a level below the analytical limit of detection. Viral nucleic acid may persist in vivo, independent of virus viability. Detection of analyte target(s) does not imply that the corresponding virus(es) are infectious or are the causative agents for clinical symptoms. Recent patient exposure to FluMist or other live attenuated influenza vaccines may cause inaccurate positive results. US AORTAon 01-24-2024 US AORTA ORIGINAL EXAMINATION: SCREENING ULTRASOUND OF THE AORTA01/24/2024 7:58 am Ultrasound of the abdominal aorta COMPARISON: None TECHNIQUE: This report is based on interpretation of permanently recorded ultrasound images. HISTORY: ORDERING SYSTEM PROVIDED HISTORY: Reason for Exam: screening, smoker, FINDINGS: The abdominal aorta shows mild atherosclerotic changes. The aortic bifurcation and proximal common iliac arteries arenonaneurysmal also. The right proximal common iliac artery measures 1.1 x 1.2 cm. The left proximal common iliac artery measures 1.2 x 1.3 cm. AP and Transverse diameter of the proximal segment: 2.3 x 2.6 cm AP and Transverse diameter of the mid segment: 1.8 x 2.3 cm AP and Transverse diameter of the distal segment: 1.5 x 1.9 cm IMPRESSION: Atherosclerotic aorta with no evidence of abdominal aortic aneurysm. I have personally reviewed the images of this examination and agree with the resident's findings and interpretation. Interpreted by: Desmond Ansari MD Preliminary Report By: Marquita Dsouza Electronically signed By Desmond Ansari MD Dictated Date: 01/24/2024 10:00:10 AM Prelim Date: 01/24/2024 11:17:54 AM Sign Date: 01/24/2024 11:17:54 AM Ordering Provider: CHU BALTES [facility] .GFRon 12-22-2023 GFR 89 ml/min/1.73sqm [facility] Comment on above: Result Comment: GFR Population mean for , Non- Americans Ages 20-29 = 116 mL/min/1.73 sq.m. Ages 30-39 = 107 mL/min/1.73 sq.m. Ages 40-49 = 99 mL/min/1.73 sq.m. Ages 50-59 = 93 mL/min/1.73 sq.m. Ages 60-69 = 85 mL/min/1.73 sq.m. Ages 70+ = 75 mL/min/1.73 sq.m. Chronic Kidney Disease: Less than 60 mL/min/1.73 square meters End Stage Renal Disease: Less than 15 mL/min/1.73 square meters Performed By: #### B MP, GFR #### [address] [address] GFR Non- 73 ml/min/1.73sqm [facility] Comment on above: Result Comment: GFR Population mean for , Non- Americans Ages 20-29 = 116 mL/min/1.73 sq.m. Ages 30-39 = 107 mL/min/1.73 sq.m. Ages 40-49 = 99 mL/min/1.73 sq.m. Ages 50-59 = 93 mL/min/1.73 sq.m. Ages 60-69 = 85 mL/min/1.73 sq.m. Ages 70+ = 75 mL/min/1.73 sq.m. Chronic Kidney Disease: Less than 60 mL/min/1.73 square meters End Stage Renal Disease: Less than 15 mL/min/1.73 square meters Performed By: #### B MP, GFR #### [place] [address] [place], [place] [address] BMPon 12-22-2023 BUN/Creatinine Ratio 14 ratio Normal 7-27 [facility] Comment on above: Performed By: #### B MP, GFR #### [place] [place], [place] [address] Calcium [Mass/Vol] 8.9 mg/dL Normal 8.4-10.2 [facility] Comment on above: Performed By: #### B MP, GFR #### [address] [address] Chloride [Moles/Vol] 102 mmol/L Normal 98-107 [facility] Comment on above: Performed By: #### B MP, GFR #### [address] [address] CO2 [Moles/Vol] 28 mmol/L Normal 23-31 [facility] Comment on above: Performed By: #### B MP, GFR #### [address] [address] Creatinine [Mass/Vol] 1.02 mg/dL Normal 0.70-1.30 [facility] Comment on above: Result Comment: Test ing performed on Siemens Dimension EXL analyzer using a modified kinetic Samantha technique. Performed By: #### B MP, GFR #### [address] [address] Electrolyte Balance 10.0 mEq/L Normal 4.0-15.0 [facility] Comment on above: Performed By: #### B MP, GFR #### [address] [address] Glucose [Mass/Vol] 90 mg/dL Normal 80-115 [facility] Comment on above: Performed By: #### B MP, GFR #### [address] [address] Potassium [Moles/Vol] 4.3 mmol/L Normal 3.5-5.1 [facility] Comment on above: Performed By: #### B MP, GFR #### [address] [address] Sodium [Moles/Vol] 140 mmol/L Normal 136-145 [facility] Comment on above: Performed By: #### B MP, GFR #### [address] [address] Urea nitrogen [Mass/Vol] 14 mg/dL Normal 7-18 [facility] Comment on above: Performed By: #### B MP, GFR #### [facility] [address] [place], [place] [address] LABORATORYOrdered By: SYSTEM SYSTEM on 12-22-2023 Calcium [Mass/Vol] 8.9 mg/dL Normal 8.4 - 10. 2 mg/dL AO ADM SS Chloride [Moles/Vol] 102 mmol/L Normal 98 - 10 7 mmol/L AO ADM SS CO2 [Moles/Vol] 28 mmol/L Normal 23 - 31 mmol/L AO ADM SS Creatinine [Mass/Vol] 1.02 mg/dL Normal 0.70 - 1.30 mg/dL AO ADM SS Comment on above: Interpretive Data: T esting performed on [employer] Dimension EXL analyzer using a modified kinetic Samantha technique. Electrolyte Balance 10.0 mEq/L Normal 4.0 - 15 .0 mEq/L AO ADM SS GFR/1.73 sq M.predicted among blacks MDRD (S/P/Bld) [Vol rate/Area] 89 ml/min/1.73sqm Invalid Interpretation Code AO Chemistry S Comment on above: Interpretive Data: GFR Population mean for , Non- Americans Ages 20-29 = 116 mL/min/1.73 sq.m. Ages 30-39 = 107 mL/min/1.73 sq.m. Ages 40-49 = 99 mL/min/1.73 sq.m. Ages 50-59 = 93 mL/min/1.73 sq.m. Ages 60-69 = 85 mL/min/1.73 sq.m. Ages 70+ = 75 mL/min/1.73 sq.m. Chronic Kidney Disease: Less than 60 mL/min/1.73 square meters End Stage Renal Disease: Less than 15 mL/min/1.73 square meters GFR/1.73 sq M.predicted among non-blacks MDRD (S/P/Bld) [Vol rate/Area] 73 ml/min/1.73sqm Invalid Interpretation Code AO Chemistry S Comment on above: Interpretive Data: GFR Population mean for , Non- Americans Ages 20-29 = 116 mL/min/1.73 sq.m. Ages 30-39 = 107 mL/min/1.73 sq.m. Ages 40-49 = 99 mL/min/1.73 sq.m. Ages 50-59 = 93 mL/min/1.73 sq.m. Ages 60-69 = 85 mL/min/1.73 sq.m. Ages 70+ = 75 mL/min/1.73 sq.m. Chronic Kidney Disease: Less than 60 mL/min/1.73 square meters End Stage Renal Disease: Less than 15 mL/min/1.73 square meters Glucose [Mass/Vol] 90 mg/dL Normal 80 - 115 mg/dL AO ADM SS Potassium [Moles/Vol] 4.3 mmol/L Normal 3.5 - 5.1 mmol/L AO ADM SS Sodium [Moles/Vol] 140 mmol/L Normal 136 - 145 mmol/L AO ADM SS Urea nitrogen [Mass/Vol] 14 mg/dL Normal 7 - 18 mg/dL AO ADM SS Urea nitrogen/Creatinine [Mass ratio] 14 ratio Normal 7 - 27 ratio AO ADM SS Radiation Oncology Visiton 0 12-13-2023 Radiation Oncology Visit [facility] [address] [address] OFFICE VISIT Date of Service: 12/13/23 1518 MR#: [id number] Acct: [id number] Name: MATHEW WHITING Rep #: [id number] : 1955 From: Yobany Villela DO Age/Sex: 68/M [place] [facility] [place] Status: Signed Intake Vital Signs 06/08/23 13:54 11/19/23 07:36 12/13/23 15:21 Height 5 ft 11 in 5 ft 11 in 5 ft 11 in Weight: 179 lb BMI 25.0 BP 146/71 H Blood Pressure Location Rt brachial Position Sitting Respiration 16 Pulse 76 Pulse Source Monitor Temp 98.4 F Temperature Source Temporal Artery Pulse Oximetry (%) 94 Oxygen Delivery Method room air Intake Visit Reasons: 6 MONTH F/U H/N Is patient in pain?: No Allergies codeine Adverse Reaction (Verified 12/13/23 15:20) Nausea Medications ???Medication ???Instructions ???Recorded ???Confirmed ???Type aspirin-caffeine 500 mg-32.5 mg 1 tab PO 06/08/23 12/13/23 History tablet (Keerthi Back and Body) albuterol sulfate 90 mcg/actuation 2 puff inhalation 06/23/23 12/13/23 History aerosol inhaler buspirone 5 mg tablet 5 mg PO BID PRN anxiety 06/23/23 12/13/23 History trazodone 50 mg tablet 50 mg PO QHS PRN sleep 06/23/23 12/13/23 History Have you fallen in the past year?: No PFSH PFSH Medical History Solitary lung nodule Pneumonia Encounter for screening for malignant neoplasm of lung COVID Cancer Ocular hypertension Wears glasses Poor dentition Alcohol use Nail fungus Bruising Arthritis Easy bruising COPD (chronic obstructive pulmonary disease) Hoarseness Smoker Home Medications ???Medication ???Instructions ???Recorded ???Last Taken ???Type aspirin-caffeine 500 mg-32.5 mg 1 tab PO 06/08/23 06/30/23 History tablet (Keerthi Back and Body) albuterol sulfate 90 mcg/actuation 2 puff inhalation 06/23/23 Unknown History aerosol inhaler buspirone 5 mg tablet 5 mg PO BID PRN anxiety 06/23/23 Unknown History trazodone 50 mg tablet 50 mg PO QHS PRN sleep 06/23/23 Unknown History Allergy/AdvReac Type Severity Reaction Status Date / Time codeine AdvReac Nausea Verified 12/13/23 15:20 Family History Father Cancer lung Mother Cancer unspecified Sister Cancer unspecified Surgical History Hx of surgical procedure Social History Smoking Status: Current every day smoker tobacco type: cigars second hand exposure: Yes Diagnosis: Mathew Whiting is a 68 year-old male diagnosed with 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 From 10/06/2021 ??? 11/12/2021 he received definitive radiation therapy to the larynx. History of Present Illness: 08/01/2021: Patient was eval by ENT due to chronic history of hoarseness. 08/05/2021: Patient completed direct laryngoscopy with biopsy.??? There is noted to be a 2 cm granular left supraglottic mass that did not involve the cord but potentially the anterior area of the supraglottis, biopsy was taken with cup biting forceps.??? Pathology was consistent with invasive moderately differentiated squamous cell carcinoma. 08/27/2021: PET scan was performed.??? This demonstrated a discrete nodule with abnormal FDG activity along the anterior left vocal cord measuring 1.1 x 1.3 cm.??? There is evidence for right middle lobe collapse/atelectasis .??? No other evidence of disease is appreciated. 08/29/2021: CT neck with contrast was performed.??? This demonstrated no evidence of abnormality including no clear evidence of laryngeal mass and no evidence of cervical adenopathy. 09/16/2021: Patient was evaluated by ENT.??? NPL demonstrated an exophytic lesion involving the left vocal cord, this lesion is fairly bulky and seems deep into the vocal cord but the vocal cord still is moving.??? Airway is adequate.??? No other abnormalities are appreciated.??? Discussed options for treatment and recommended proceeding with radiation therapy. From 10/06/2021 ??? 11/12/2021: received 6300 cGy of 6 MV photons in 28 fractions to the Larynx with a 3D conformal technique. 02/25/2022: PET scan was performed. This demonstrated increased FDG concentration identified in the left upper lung and right lower lung field which may necessitate investigation secondary to quantitative degree of uptake. The scintigraphic abnormalities likely represent an inflammatory process/pneumonitis. There is interim metabolic resolution of the prior defined (more content not included)... Normal [facility] Pulmonary Visit Reporton Pulmonary Visit Report [facility] [place] [address] [place] [address] [address] [place] [address] OFFICE VISIT Date of Service: 11/19/23 MR#: [id number] Acct: [id number] Name: MONIQUEMATHEW BISHOP Rep #: [id number] : 1955 Provider: JULIUS Chase Age/Sex: 67/M Location: [facility] [place].PMW Status: Signed Assessment and Plan Assessment and Plan (1) Mass of lower lobe of left lung: Status: Chronic Plan: Area of concern actually shows decrease in size. At this time we will continue monitoring by annual LDCT. The patient is agreeable with the plan. Follow-up in 1 year. (2) COPD (chronic obstructive pulmonary disease): Status: Chronic Qualifiers: COPD type: emphysema Emphysema type: centrilobular Qualified Code(s): J43.2 - Centrilobular emphysema Comment: FEV1 77% Plan: Asymptomatic at this time. No additional testing. Follow-up in 1 year. The patient has been encouraged to contact the office with any new or worsening symptoms in the meantime. Orders: Orders Low Dose CT Lung Screening 10/13/24 F17.200 - Nicotine dependence, unspecified, uncomplicated, R91.1 - Solitary pulmonary nodule Plan Details Follow Up: 1 Year ([facility]) HPI 4 M FU Chief Complaint: Test results HPI Comments Details: This patient presents to the office today for follow-up of his COPD and to discuss test results. He is ambulatory and currently on room air. He has not recently been seen in the ED or urgent care for any respiratory illness. He has not required any antibiotics or prednisone for any breathing problems. He denies any difficulty with shortness of breath whatsoever. He does have a cough secondary to phlegm buildup in the back of his throat. He believes this is related to the radiation that he received to his throat to treat throat cancer. He denies any chest tightness, chest pain, wheezing or palpitations. He has not had any fever, chills or body aches. He continues to smoke cigars. He is currently smoking 8 filtered cigars daily. Test results personally reviewed patient: CT without contrast of the chest completed on November 09, 2023. Emphysema with bleb formation noted in both lung guerrero. The previously noted pleural-based mass in the posterior left lower lobe has decreased in size since previous study. On the previous study it measured 1.1 x 2 cm and on the current study it measured 0.6 x 0.4 cm. Previously noted atelectasis changes in the middle right lobe are again noted and have also decreased in size. No new suspicious noncalcified mass or nodule. Intake Vital Signs 07/15/23 07:47 11/19/23 07:36 Height 5 ft 11 in 5 ft 11 in Weight: 171 lb 172 lb BMI 23.8 24.0 BP 142/71 H 157/74 H Blood Pressure Location Lt brachial Lt brachial Position Sitting Sitting Respiration 18 18 Pulse 75 84 Pulse Source Monitor Monitor Temp 98.2 F 97.3 F L Temperature Source Temporal Artery Temporal Artery Pulse Oximetry (%) 95 92 Oxygen Delivery Method room air room air Intake Visit Reasons: 4 M FU Technical Sales Engineer Required: No DME Vendor: n/a Accompanied by: Self Is patient in pain?: No Allergies codeine Adverse Reaction (Verified 11/19/23 07:41) Nausea Medications ???Medication ???Instructions ???Recorded ???Confirmed ???Type aspirin-caffeine 500 mg-32.5 mg 1 tab PO 06/08/23 11/19/23 History tablet (Keerthi [employer] and [employer]) albuterol sulfate 90 mcg/actuation 2 puff inhalation 06/23/23 11/19/23 History aerosol inhaler buspirone 5 mg tablet 5 mg PO BID PRN anxiety 06/23/23 11/19/23 History trazodone 50 mg tablet 50 mg PO QHS PRN sleep 06/23/23 11/19/23 History Have you fallen in the past year?: No PFSH Medical History Solitary lung nodule Pneumonia Encounter for screening for malignant neoplasm of lung COVID Cancer Ocular hypertension Wears glasses Poor dentition Alcohol use Nail fungus Bruising Arthritis Easy bruising COPD (chronic obstructive pulmonary disease) Hoarseness Smoker Surgical History (Reviewed 11/19/23 @ 07:46 by Sharon Chase LABORATORY OPERATIONS COORDINATOR, LABORATORY OPERATIONS COORDINATOR-C) Hx of surgical procedure Family History Father Cancer lung Mother Cancer unspecified Sister Cancer unspecified Social History Smoking Status: Current every day smoker tobacco type: cigars second hand exposure: Yes Review of Systems Resp Respiratory: Yes as per HPI Exam Const Constitutional: Positive conversant (Hoarse voice), cooperative, in no acute respiratory distress, well developed, well nourished, good hygiene and smells of smoke Head Head: Yes normocephalic, Yes atraumatic and No cyanosis of lips/distal nose Eyes Eye: Positive clear conjunctiva; Negative nystagmus or scl (more content not included)... Normal [facility] Chest without Contraston Chest without Contrast [facility] Imaging Services [address] [address] Chest without Contrast MR#: [id number] Acct: [id number] Name: MATHEW WHITING Rep #: [id number] : 1955 M 67 From: Domingo Coon MD PCP: JULIUS Guardado Status: REG CLI Study: Chest without Contrast Date of Exam: 11/09/23 Exam# [id number] Ordering Dr: Sharon Chase NP LABORATORY OPERATIONS COORDINATOR-C [id number] INDICATION: Pulmonary nodule EXAMINATION: CT CHEST WITHOUT CONTRAST - CT Chest W/O Contrast Injection TECHNIQUE: Helically acquired images were obtained of the chest. A radiation dose optimization technique was used for this scan. IV Contrast dosage and agent: None. COMPARISON: 06/08/2023 ____ FINDINGS: LUNGS, PLEURA AND LARGE AIRWAYS: Bone windows show underlying emphysema with bleb formation throughout both lung guerrero and stable nonspecific pleural thickening in both apices. There is no organized infiltrate, or effusion. The previously noted pleural-based mass in the posterior left lower lobe has decreased in size since the previous study. On the previous study it measured approximately 1.1 x 2 cm, on current study it measures 0.6 x 0.4 cm. Previously noted atelectatic changes in the medial right lower lobe are also again noted and these have also decreased in size since the previous study. There is no new suspicious noncalcified mass or nodule. THYROID: No thyroid lesions. HEART AND PERICARDIUM: Heart size is normal. No pericardial effusion. CORONARY ARTERIES: Coronary artery calcification is seen. VESSELS: Thoracic aorta is not dilated. MEDIASTINUM AND TAPAN: No suspicious bulky mediastinal or hilar adenopathy. Esophagus is unremarkable. No hiatal hernia. UPPER ABDOMEN: No acute pathology. BONES: No suspicious lytic or blastic abnormality. Bony structures show degenerative change CT/Chest without Contrast IMPRESSION: Previously noted pleural-based densities in both lower lung guerrero have decreased in size since the previous study. This suggests benignity. Emphysema is independent risk factor for lung cancer and patient should be placed in a low-density CT screening program for lung cancer. No organized infiltrate effusion or suspicious new noncalcified mass or nodule No suspicious adenopathy Degenerative bony changes Electronically Signed: Steven Coon MD at 8:45 EDT , CC: JULIUS Chase; JULIUS Iglesias Chief Of Party: Signed Normal [facility] Activated partial thrombopla stin time (aPTT) in platelet poor plasma by coagulation aOrdered By: Sharon Chase on 07-06-2023 aPTT Coag (PPP) [Time] 25.0 s 24.1-36.2 [facility] - CoagulationOrde red By: Sharon Chase on 07-06-2023 INR Coag (Bld) [Relative time] 0.9 {INR} [facility] PT Coag (PPP) [Time] 12.6 s 11.7-14.9 [facility] Platelets bldOrdered By: José Antonio Chase on 07-06-2023 Platelets (Bld) [#/Vol] 225 10*3/uL 150-450 [facility] MALBRon 06-26-2023 U Creatinine 173.7 mg/dL Normal 39.0-259.0 [facility] ([place]) Comment on above: Performed By: #### M ALBR #### [address] [address] U Microalb 693 mcg/dL Normal [facility] ([place]) Comment on above: Performed By: #### M ALBR #### [address] [address] U Ratio Alb/Cre 4 mcg/mg Normal 0-30 [facility] ([place]) Comment on above: Performed By: #### M ALBR #### [address] [address] LABORATORYOrdered By: Roverto Glover on 06-25-2023 Albumin DL <= 20 mg/L (U) [Mass/Vol] 693 mcg/dL Invalid Interpretation Code AO ADM SS Albumin/Creatinine DL <= 20 mg/L (U) [Mass ratio] 4 mcg/mg Normal 0 - 30 mcg/mg AO ADM SS Creatinine (U) [Mass/Vol] 173.7 mg/dL Normal 39.0 - 259.0 mg/dL AO ADM SS .Auto Diffon 06-24-2023 Basophil, Absolute 0.1 10 3/mcL Normal 0.0-0.2 [facility] ([place]) Comment on above: Performed By: #### L IPID, CMP, GFR, PSA, CBC, ANEU, ADIFF #### [address] [address] Basophils/100 WBC (Bld) 1.1 % Normal 0.0-2.5 [facility] ([place]) Comment on above: Performed By: #### L IPID, CMP, GFR, PSA, CBC, ANEU, ADIFF #### [address] [address] Eosinophil, Absolute 0.1 10 3/mcL Normal 0.0-0.4 [facility] ([place]) Comment on above: Performed By: #### L IPID, CMP, GFR, PSA, CBC, ANEU, ADIFF #### [address] [address] Eosinophils/100 WBC (Bld) 2.1 % Normal 0.0-7.0 [facility] ([place] Comment on above: Performed By: #### L IPID, CMP, GFR, PSA, CBC, ANEU, ADIFF #### [address] [address] Lymphocyte, Absolute 2.0 10 3/mcL Normal 0.8-3.9 [facility] ([place] Comment on above: Performed By: #### L IPID, CMP, GFR, PSA, CBC, ANEU, ADIFF #### [address] [address] Lymphocytes/100 WBC (Bld) 29.9 % Normal 10.0-50.0 [facility] ([place] Comment on above: Performed By: #### L IPID, CMP, GFR, PSA, CBC, ANEU, ADIFF #### [address] [address] Monocyte, Absolute 0.6 10 3/mcL Normal 0.2-1.0 [facility] ([place] Comment on above: Performed By: #### L IPID, CMP, GFR, PSA, CBC, ANEU, ADIFF #### [address] [address] Monocytes/100 WBC (Bld) 8.8 % Normal 1.7-13.0 [facility] ([place] Comment on above: Performed By: #### L IPID, CMP, GFR, PSA, CBC, ANEU, ADIFF #### [address] [address] Neutrophils/100 WBC (Bld) 58.1 % Normal 37.0-80.0 [facility] ([place] Comment on above: Performed By: #### L IPID, CMP, GFR, PSA, CBC, ANEU, ADIFF #### [address] [address] .GFRon 06-24-2023 GFR Non- 61 ml/min/1.73sqm Normal [facility] ([place]) Comment on above: Result Comment: GFR Population mean for , Non- Americans Ages 20-29 = 116 mL/min/1.73 sq.m. Ages 30-39 = 107 mL/min/1.73 sq.m. Ages 40-49 = 99 mL/min/1.73 sq.m. Ages 50-59 = 93 mL/min/1.73 sq.m. Ages 60-69 = 85 mL/min/1.73 sq.m. Ages 70+ = 75 mL/min/1.73 sq.m. Chronic Kidney Disease: Less than 60 mL/min/1.73 square meters End Stage Renal Disease: Less than 15 mL/min/1.73 square meters Performed By: #### P RO, PLT #### [address] [address] GFR 74 ml/min/1.73sqm Normal [facility] ([place]) Comment on above: Result Comment: GFR Population mean for , Non- Americans Ages 20-29 = 116 mL/min/1.73 sq.m. Ages 30-39 = 107 mL/min/1.73 sq.m. Ages 40-49 = 99 mL/min/1.73 sq.m. Ages 50-59 = 93 mL/min/1.73 sq.m. Ages 60-69 = 85 mL/min/1.73 sq.m. Ages 70+ = 75 mL/min/1.73 sq.m. Chronic Kidney Disease: Less than 60 mL/min/1.73 square meters End Stage Renal Disease: Less than 15 mL/min/1.73 square meters Performed By: #### P RO, PLT #### [address] [address] .NEUABSon 06-24-2023 Neutrophil, Absolute 3.8 10 3/mcL Normal 2.9-6.2 [facility] ([place] Comment on above: Performed By: #### P RO, PLT #### [address] [address] APTTon 06-24-2023 aPTT Coag (Bld) [Time] 29.4 s Normal 25.0-35.0 [facility] ([place] Comment on above: Result Comment: For Heparin anticoagulation therapy, the recommended therapeutic range is: 50.6-87.4 seconds. Patients on heparin therapy may have an extreme result. Heparin dose (APTT) Unknown Normal [facility] ([place]) CBCon 06-24-2023 Erythrocyte distribution width (RBC) [Ratio] 14.8 % High 11.5-14.5 [facility] ([place]) Comment on above: Performed By: #### L IPID, CMP, GFR, PSA, CBC, ANEU, ADIFF #### [address] [address] Hematocrit (Bld) [Volume fraction] 46.7 % Normal 42.0-52.0 [facility] ([place] Comment on above: Performed By: #### L IPID, CMP, GFR, PSA, CBC, ANEU, ADIFF #### [address] [address] Hgb 16.2 G/dL Normal 14.0-18.0 [facility] ([place] Comment on above: Performed By: #### L IPID, CMP, GFR, PSA, CBC, ANEU, ADIFF #### [address] [address] MCH (RBC) [Entitic mass] 35.3 pg High 27.0-31.2 [facility] ([place] Comment on above: Performed By: #### L IPID, CMP, GFR, PSA, CBC, ANEU, ADIFF #### [place] [address] MCHC 34.7 G/dL Normal 31.8-35.4 [facility] ([place] Comment on above: Performed By: #### L IPID, CMP, GFR, PSA, CBC, ANEU, ADIFF #### [place] [id number] MCV (RBC) [Entitic vol] 101.8 fL High 80.0-94.0 [facility] ([place] Comment on above: Performed By: #### L IPID, CMP, GFR, PSA, CBC, ANEU, ADIFF #### [place] [id number] Platelet 199 10 3/mcL Normal 130-400 [facility] ([place]) Comment on above: Performed By: #### L IPID, CMP, GFR, PSA, CBC, ANEU, ADIFF #### [place] [address] Platelet mean volume (Bld) [Entitic vol] 7.9 fL Normal 7.4-10.4 [facility] ([place] Comment on above: Performed By: #### L IPID, CMP, GFR, PSA, CBC, ANEU, ADIFF #### [address] [address] RBC 4.59 10 6/mcL Normal 4.04-6.13 [facility] ([place] Comment on above: Performed By: #### L IPID, CMP, GFR, PSA, CBC, ANEU, ADIFF #### [address] [address] WBC 6.5 10 3/mcL Normal 4.6-10.8 [facility] ([place] Comment on above: Performed By: #### L IPID, CMP, GFR, PSA, CBC, ANEU, ADIFF #### [address] [address] CMPon 06-24-2023 Albumin Level 3.7 G/dL Normal 3.4-4.8 [facility] ([place] Comment on above: Performed By: #### P RO, PLT #### [address] [address] Albumin/Globulin [Mass ratio] 1.2 {ratio} Normal 1.1-2.5 [facility] ([place] Comment on above: Performed By: #### P RO, PLT #### [address] [address] ALP [Catalytic activity/Vol] 80 U/L Normal 40-135 [facility] ([place] Comment on above: Performed By: #### P RO, PLT #### [address] [address] ALT [Catalytic activity/Vol] 17 U/L Normal 16-63 [facility] ([place] Comment on above: Performed By: #### P RO, PLT #### [address] [address] AST [Catalytic activity/Vol] 15 U/L Normal 10-40 [facility] ([place] Comment on above: Performed By: #### P RO, PLT #### [address] [address] Bili Total 0.9 mg/dL Normal 0.2-1.0 [facility] ([place] Comment on above: Result Comment: Use of this assay is not recommended for patients undergoing treatment with eltrombopag due to the potential for falsely elevated results. Performed By: #### P RO, PLT #### [address] [address] BUN/Creatinine Ratio 13 ratio Normal 7-27 [facility] ([place] Comment on above: Performed By: #### P RO, PLT #### [address] [address] Calcium [Mass/Vol] 8.7 mg/dL Normal 8.4-10.2 [facility] ([place]) Comment on above: Performed By: #### P RO, PLT #### [address] [address] Chloride [Moles/Vol] 104 mmol/L Normal 98-107 [facility] ([place] Comment on above: Performed By: #### P RO, PLT #### [address] [address] CO2 [Moles/Vol] 30 mmol/L Normal 23-31 [facility] ([place] Comment on above: Performed By: #### P RO, PLT #### [address] [address] Creatinine [Mass/Vol] 1.19 mg/dL Normal 0.70-1.30 [facility] ([place] Comment on above: Performed By: #### P RO, PLT #### [address] [address] Electrolyte Balance 8.0 mEq/L Normal 4.0-15.0 [facility] ([place]) Comment on above: Performed By: #### P RO, PLT #### [address] [address] Globulin 3.0 G/dL Normal [facility] ([place] Comment on above: Performed By: #### P RO, PLT #### [address] [address] Glucose [Mass/Vol] 92 mg/dL Normal 80-115 [facility] ([place] Comment on above: Performed By: #### P RO, PLT #### [address] [address] Potassium [Moles/Vol] 4.7 mmol/L Normal 3.5-5.1 [facility] ([place] Comment on above: Performed By: #### P RO, PLT #### [address] [address] Sodium [Moles/Vol] 142 mmol/L Normal 136-145 [facility] ([place] Comment on above: Performed By: #### P RO, PLT #### [address] [address] Total Protein 6.7 G/dL Normal 6.4-8.2 [facility] ([place] Comment on above: Performed By: #### P RO, PLT #### [address] [address] Urea nitrogen [Mass/Vol] 16 mg/dL Normal 7-18 [facility] ([place] Comment on above: Performed By: #### P RO, PLT #### [address] [address] LABORATORYOrdered By: SYSTEM SYSTEM on 06-24-2023 Albumin BCP dye [Mass/Vol] 3.7 G/dL Normal 3.4 - 4.8 G/dL AO ADM SS Albumin/Globulin [Mass ratio] 1.2 {ratio} Normal 1.1 - 2.5 ratio AO ADM SS ALP [Catalytic activity/Vol] 80 U/L Normal 40 - 135 U/L AO ADM SS ALT With P-5'-P [Catalytic activity/Vol] 17 U/L Normal 16 - 63 U/L AO ADM SS AST With P-5'-P [Catalytic activity/Vol] 15 U/L Normal 10 - 40 U/L AO ADM SS Basophil, Absolute 0.1 103/mcL Normal 0.0 - 0.2 10^3/mcL AO Workflow SS Basophils/100 WBC (Bld) 1.1 % Normal 0.0 - 2.5 % AO Workflow SS Bilirubin [Mass/Vol] 0.9 mg/dL Normal 0.2 - 1 .0 mg/dL AO ADM SS Comment on above: Interpretive Data: U se of this assay is not recommended for patients undergoing treatment with eltrombopag due to the potential for falsely elevated results. Calcium [Mass/Vol] 8.7 mg/dL Normal 8.4 - 10. 2 mg/dL AO ADM SS Chloride [Moles/Vol] 104 mmol/L Normal 98 - 10 7 mmol/L AO ADM SS CO2 [Moles/Vol] 30 mmol/L Normal 23 - 31 mmol/L AO ADM SS Creatinine [Mass/Vol] 1.19 mg/dL Normal 0.70 - 1.30 mg/dL AO ADM SS Electrolyte Balance 8.0 mEq/L Normal 4.0 - 15 .0 mEq/L AO ADM SS Eosinophil, Absolute 0.1 103/mcL Normal 0.0 - 0 .4 10^3/mcL AO Workflow SS Eosinophils/100 WBC (Bld) 2.1 % Normal 0.0 - 7.0 % AO Workflow SS Erythrocyte distribution width (RBC) [Ratio] 14.8 % High 11.5 - 14.5 % AO Workflow SS GFR/1.73 sq M.predicted among blacks MDRD (S/P/Bld) [Vol rate/Area] 74 ml/min/1.73sqm Invalid Interpretation Code AO Chemistry S Comment on above: Interpretive Data: GFR Population mean for , Non- Americans Ages 20-29 = 116 mL/min/1.73 sq.m. Ages 30-39 = 107 mL/min/1.73 sq.m. Ages 40-49 = 99 mL/min/1.73 sq.m. Ages 50-59 = 93 mL/min/1.73 sq.m. Ages 60-69 = 85 mL/min/1.73 sq.m. Ages 70+ = 75 mL/min/1.73 sq.m. Chronic Kidney Disease: Less than 60 mL/min/1.73 square meters End Stage Renal Disease: Less than 15 mL/min/1.73 square meters GFR/1.73 sq M.predicted among non-blacks MDRD (S/P/Bld) [Vol rate/Area] 61 ml/min/1.73sqm Invalid Interpretation Code AO Chemistry S Comment on above: Interpretive Data: GFR Population mean for , Non- Americans Ages 20-29 = 116 mL/min/1.73 sq.m. Ages 30-39 = 107 mL/min/1.73 sq.m. Ages 40-49 = 99 mL/min/1.73 sq.m. Ages 50-59 = 93 mL/min/1.73 sq.m. Ages 60-69 = 85 mL/min/1.73 sq.m. Ages 70+ = 75 mL/min/1.73 sq.m. Chronic Kidney Disease: Less than 60 mL/min/1.73 square meters End Stage Renal Disease: Less than 15 mL/min/1.73 square meters Globulin 3.0 G/dL Invalid Interpretation Code AO ADM SS Glucose [Mass/Vol] 92 mg/dL Normal 80 - 115 mg/dL AO ADM SS Hematocrit (Bld) [Volume fraction] 46.7 % Normal 42.0 - 52.0 % AO Workflow SS Hemoglobin (Bld) [Mass/Vol] 16.2 G/dL Normal 14.0 - 18.0 G/dL AO Workflow SS Lymphocyte, Absolute 2.0 103/mcL Normal 0.8 - 3 .9 10^3/mcL AO Workflow SS Lymphocytes/100 WBC (Bld) 29.9 % Normal 10.0 - 50.0 % AO Workflow SS MCH (RBC) [Entitic mass] 35.3 pg High 27.0 - 31.2 pg AO Workflow SS MCHC 34.7 G/dL Normal 31.8 - 35.4 G/dL AO Workflow SS MCV (RBC) [Entitic vol] 101.8 fL High 80.0 - 94.0 fL AO Workflow SS Monocyte, Absolute 0.6 103/mcL Normal 0.2 - 1.0 10^3/mcL AO Workflow SS Monocytes/100 WBC (Bld) 8.8 % Normal 1.7 - 13.0 % AO Workflow SS Neutrophil, Absolute 3.8 103/mcL Normal 2.9 - 6 .2 10^3/mcL AO Workflow SS Neutrophils/100 WBC (Bld) 58.1 % Normal 37.0 - 80.0 % AO Workflow SS Platelet mean volume (Bld) [Entitic vol] 7.9 fL Normal 7.4 - 10.4 fL AO Workflow SS Platelets (Bld) [#/Vol] 199 103/mcL Normal 130 - 400 10^3/mcL AO Workflow SS Potassium [Moles/Vol] 4.7 mmol/L Normal 3.5 - 5.1 mmol/L AO ADM SS Prostate specific Ag [Mass/Vol] 1.19 ng/mL Normal 0.00 - 4.00 ng/mL AO ADM SS Protein [Mass/Vol] 6.7 G/dL Normal 6.4 - 8.2 G/dL AO ADM SS RBC (Bld) [#/Vol] 4.59 106/mcL Normal 4.04 - 6.1 3 10^6/mcL AO Workflow SS Sodium [Moles/Vol] 142 mmol/L Normal 136 - 145 mmol/L AO ADM SS Urea nitrogen [Mass/Vol] 16 mg/dL Normal 7 - 18 mg/dL AO ADM SS Urea nitrogen/Creatinine [Mass ratio] 13 ratio Normal 7 - 27 ratio AO ADM SS WBC (Bld) [#/Vol] 6.5 103/mcL Normal 4.6 - 10.8 10^3/mcL AO Workflow SS Platelets (Bld) [#/Vol] 199 103/mcL Normal 130 - 400 10^3/mcL AO Workflow SS LABORATORYOrdered By: Marilynn Gonzalez on 06-24-2023 Cholesterol [Mass/Vol] 211 mg/dL High 0 - 2 00 mg/dL AO ADM SS Comment on above: Interpretive Data: C holesterol Reference Interval: Less than 200 Desirable 200-239 Borderline high risk 240 and above High risk Cholesterol in HDL [Mass/Vol] 108 mg/dL High 40 - 60 mg/dL AO ADM SS Cholesterol in LDL [Mass/Vol] 89 mg/dL Normal 0 - 130 mg/dL AO ADM SS Triglyceride [Mass/Vol] 69 mg/dL Normal 0 - 150 mg/dL AO ADM SS Comment on above: Interpretive Data: T riglyceride Reference Interval: Less than 150 Normal 150-199 Borderline high risk 200-499 High risk 500 or higher Very high risk LABORATORYOrdered By: Laura Thao on 06-24-2023 aPTT Coag (PPP) [Time] 29.4 s Normal 25.0 - 35.0 seconds AO [facility] SS Comment on above: Interpretive Data: F or Heparin anticoagulation therapy, the recommended therapeutic range is: 50.6-87.4 seconds. Patients on heparin therapy may have an extreme result. Heparin dose (APTT) Unknown (06/24/23 3:59 PM) Normal AO Coagulation S INR Coag (PPP) [Relative time] 0.9 {INR} Invalid Interpretation Code AO [facility] SS Comment on above: Interpretive Data: Cassandra zapata [employer] (CHEST, 1992, 102:[id number]) recommended therapeutic range for oral anticoagulant therapy is: LOW RISK: Prophylaxis of venous thrombosis INR: 2.0-3.0 Treatment of pulmonary embolism 2.0-3.0 Prevention of systemic embolism 2.0-3.0 HIGH RISK: Mechanical prosthetic valves 2.5-3.5 PT Coag (PPP) [Time] 10.4 s Normal 9.0 - 1 4.2 seconds AO [facility] SS LIPIDon 06-24-2023 Cholesterol [Mass/Vol] 211 mg/dL High 0-200 [facility] ([place]) Comment on above: Result Comment: Chol esterol Reference Interval: Less than 200 Desirable 200-239 Borderline high risk 240 and above High risk Performed By: #### P RO, PLT #### [address] [address] Cholesterol in HDL [Mass/Vol] 108 mg/dL High 40-60 [facility] ([place]) Comment on above: Performed By: #### P RO, PLT #### [address] [address] Cholesterol in LDL [Mass/Vol] 89 mg/dL Normal 0-130 [facility]) Comment on above: Performed By: #### P RO, PLT #### [address] [address] Triglyceride [Mass/Vol] 69 mg/dL Normal 0-150 [facility] ([place]) Comment on above: Result Comment: Trig lyceride Reference Interval: Less than 150 Normal 150-199 Borderline high risk 200-499 High risk 500 or higher Very high risk Performed By: #### P RO, PLT #### [address] [address] PLTon 06-24-2023 Platelet 199 10 3/mcL Normal 130-400 [facility] ([place]) Comment on above: Performed By: #### P RO, PLT #### [address] [address] PROon 06-24-2023 PT Coag (PPP) [Time] 10.4 s Normal 9.0-14.2 formerly [facility] ([place]) Comment on above: Performed By: #### P RO, PLT #### [address] [address] PT International Ratio 0.9 Normal [facility] ([place]) Comment on above: Result Comment: The [employer] (CHEST, 1992, 102:[id number]) recommended therapeutic range for oral anticoagulant therapy is: LOW RISK: Prophylaxis of venous thrombosis INR: 2.0-3.0 Treatment of pulmonary embolism 2.0-3.0 Prevention of systemic embolism 2.0-3.0 HIGH RISK: Mechanical prosthetic valves 2.5-3.5 Performed By: #### P RO, PLT #### [address] [address] PSAon 06-24-2023 Prostate Specific Antigen 1.19 ng/mL Normal 0.00-4.00 [facility] ([place]) Comment on above: Performed By: #### P RO, PLT #### [address] [address] .Auto Diffon 12-16-2022 Basophil, Absolute 0.1 10 3/mcL Normal 0.0-0.2 [facility] ([place]) Comment on above: Performed By: #### G FR, CMP, ADIFF, CBC, ANEU #### [address] [address] Basophils/100 WBC (Bld) 0.9 % Normal 0.0-2.5 [facility] ([place]) Comment on above: Performed By: #### G FR, CMP, ADIFF, CBC, ANEU #### [address] [address] Eosinophil, Absolute 0.1 10 3/mcL Normal 0.0-0.4 [facility] ([place]) Comment on above: Performed By: #### G FR, CMP, ADIFF, CBC, ANEU #### [address] [address] Eosinophils/100 WBC (Bld) 1.9 % Normal 0.0-7.0 [facility] ([place]) Comment on above: Performed By: #### G FR, CMP, ADIFF, CBC, ANEU #### [address] [address] Lymphocyte, Absolute 2.6 10 3/mcL Normal 0.8-3.9 [facility] ([place]) Comment on above: Performed By: #### G FR, CMP, ADIFF, CBC, ANEU #### [address] [address] Lymphocytes/100 WBC (Bld) 38.6 % Normal 10.0-50.0 [facility] ([place]) Comment on above: Performed By: #### G FR, CMP, ADIFF, CBC, ANEU #### [address] [address] Monocyte, Absolute 0.7 10 3/mcL Normal 0.2-1.0 [facility] ([place]) Comment on above: Performed By: #### G FR, CMP, ADIFF, CBC, ANEU #### [address] [address] Monocytes/100 WBC (Bld) 9.6 % Normal 1.7-13.0 [facility] ([place]) Comment on above: Performed By: #### G FR, CMP, ADIFF, CBC, ANEU #### [address] [address] Neutrophils/100 WBC (Bld) 49.0 % Normal 37.0-80.0 [facility] ([place]) Comment on above: Performed By: #### G FR, CMP, ADIFF, CBC, ANEU #### [address] [address] .GFRon 12-16-2022 GFR Non- 64 ml/min/1.73sqm Normal [facility] ([place]) Comment on above: Result Comment: GFR Population mean for , Non- Americans Ages 20-29 = 116 mL/min/1.73 sq.m. Ages 30-39 = 107 mL/min/1.73 sq.m. Ages 40-49 = 99 mL/min/1.73 sq.m. Ages 50-59 = 93 mL/min/1.73 sq.m. Ages 60-69 = 85 mL/min/1.73 sq.m. Ages 70+ = 75 mL/min/1.73 sq.m. Chronic Kidney Disease: Less than 60 mL/min/1.73 square meters End Stage Renal Disease: Less than 15 mL/min/1.73 square meters Performed By: #### G FR, CMP, ADIFF, CBC, ANEU #### [address] [address] GFR 78 ml/min/1.73sqm Normal [facility] ([place]) Comment on above: Result Comment: GFR Population mean for , Non- Americans Ages 20-29 = 116 mL/min/1.73 sq.m. Ages 30-39 = 107 mL/min/1.73 sq.m. Ages 40-49 = 99 mL/min/1.73 sq.m. Ages 50-59 = 93 mL/min/1.73 sq.m. Ages 60-69 = 85 mL/min/1.73 sq.m. Ages 70+ = 75 mL/min/1.73 sq.m. Chronic Kidney Disease: Less than 60 mL/min/1.73 square meters End Stage Renal Disease: Less than 15 mL/min/1.73 square meters Performed By: #### G FR, CMP, ADIFF, CBC, ANEU #### [address] [address] .NEUABSon 12-16-2022 Neutrophil, Absolute 3.4 10 3/mcL Normal 2.9-6.2 [facility] ([place] Comment on above: Performed By: #### G FR, CMP, ADIFF, CBC, ANEU #### [address] [address] CBCon 12-16-2022 Erythrocyte distribution width (RBC) [Ratio] 14.1 % Normal 11.5-14.5 [facility] ([place]) Comment on above: Performed By: #### G FR, CMP, ADIFF, CBC, ANEU #### [address] [address] Hematocrit (Bld) [Volume fraction] 48.6 % Normal 42.0-52.0 [facility] ([place]) Comment on above: Performed By: #### G FR, CMP, ADIFF, CBC, ANEU #### [address] [address] Hgb 16.8 G/dL Normal 14.0-18.0 [facility] ([place]) Comment on above: Performed By: #### G FR, CMP, ADIFF, CBC, ANEU #### [address] [address] MCH (RBC) [Entitic mass] 36.1 pg High 27.0-31.2 [facility] ([place]) Comment on above: Performed By: #### G FR, CMP, ADIFF, CBC, ANEU #### [address] [address] MCHC 34.5 G/dL Normal 31.8-35.4 [facility] ([place] Comment on above: Performed By: #### G FR, CMP, ADIFF, CBC, ANEU #### [address] [address] MCV (RBC) [Entitic vol] 104.7 fL High 80.0-94.0 [facility] ([place]) Comment on above: Performed By: #### G FR, CMP, ADIFF, CBC, ANEU #### [address] [address] Platelet 202 10 3/mcL Normal 130-400 [facility] ([place] Comment on above: Performed By: #### G FR, CMP, ADIFF, CBC, ANEU #### [address] [address] Platelet mean volume (Bld) [Entitic vol] 8.0 fL Normal 7.4-10.4 [facility] ([place] Comment on above: Performed By: #### G FR, CMP, ADIFF, CBC, ANEU #### [address] [address] RBC 4.64 10 6/mcL Normal 4.04-6.13 [facility] ([place]) Comment on above: Performed By: #### G FR, CMP, ADIFF, CBC, ANEU #### [address] [address] WBC 6.8 10 3/mcL Normal 4.6-10.8 [facility] ([place] Comment on above: Performed By: #### G FR, CMP, ADIFF, CBC, ANEU #### [address] [address] CMPon 12-16-2022 Albumin Level 3.8 G/dL Normal 3.4-4.8 [facility] ([place]) Comment on above: Performed By: #### G FR, CMP, ADIFF, CBC, ANEU #### [address] [address] Albumin/Globulin [Mass ratio] 1.1 {ratio} Normal 1.1-2.5 [facility] ([place]) Comment on above: Performed By: #### G FR, CMP, ADIFF, CBC, ANEU #### [address] [address] ALP [Catalytic activity/Vol] 77 U/L Normal 40-135 [facility] ([place]) Comment on above: Performed By: #### G FR, CMP, ADIFF, CBC, ANEU #### [address] [address] ALT [Catalytic activity/Vol] 16 U/L Normal 16-63 [facility] ([place]) Comment on above: Performed By: #### G FR, CMP, ADIFF, CBC, ANEU #### [address] [address] AST [Catalytic activity/Vol] 15 U/L Normal 10-40 [facility] ([place]) Comment on above: Performed By: #### G FR, CMP, ADIFF, CBC, ANEU #### [address] [address] Bili Total 0.6 mg/dL Normal 0.2-1.0 [facility] ([place]) Comment on above: Result Comment: Use of this assay is not recommended for patients undergoing treatment with eltrombopag due to the potential for falsely elevated results. Performed By: #### G FR, CMP, ADIFF, CBC, ANEU #### [address] [address] BUN/Creatinine Ratio 13 ratio Normal 7-27 [facility] ([place] Comment on above: Performed By: #### G FR, CMP, ADIFF, CBC, ANEU #### [address] [address] Calcium [Mass/Vol] 8.7 mg/dL Normal 8.4-10.2 [facility] ([place]) Comment on above: Performed By: #### G FR, CMP, ADIFF, CBC, ANEU #### [address] [address] Chloride [Moles/Vol] 102 mmol/L Normal 98-107 [facility] [place] Comment on above: Performed By: #### G FR, CMP, ADIFF, CBC, ANEU #### [address] [address] CO2 [Moles/Vol] 31 mmol/L Normal 23-31 [facility] ([place] Comment on above: Performed By: #### G FR, CMP, ADIFF, CBC, ANEU #### [address] [address] Creatinine [Mass/Vol] 1.14 mg/dL Normal 0.70-1.30 [facility] ([place] Comment on above: Performed By: #### G FR, CMP, ADIFF, CBC, ANEU #### [address] [address] Electrolyte Balance 8.0 mEq/L Normal 4.0-15.0 [facility] ([place]) Comment on above: Performed By: #### G FR, CMP, ADIFF, CBC, ANEU #### [address] [address] Globulin 3.4 G/dL Normal [facility] ([place] Comment on above: Performed By: #### G FR, CMP, ADIFF, CBC, ANEU #### [address] [address] Glucose [Mass/Vol] 96 mg/dL Normal 80-115 [facility] ([place] Comment on above: Performed By: #### G FR, CMP, ADIFF, CBC, ANEU #### [address] [address] Potassium [Moles/Vol] 4.5 mmol/L Normal 3.5-5.1 [facility] ([place] Comment on above: Performed By: #### G FR, CMP, ADIFF, CBC, ANEU #### [address] [address] Sodium [Moles/Vol] 141 mmol/L Normal 136-145 [facility] ([place] Comment on above: Performed By: #### G FR, CMP, ADIFF, CBC, ANEU #### [address] [address] Total Protein 7.2 G/dL Normal 6.4-8.2 [facility] [place] Comment on above: Performed By: #### G FR, CMP, ADIFF, CBC, ANEU #### [address] [address] Urea nitrogen [Mass/Vol] 15 mg/dL Normal 7-18 [facility] ([place] Comment on above: Performed By: #### G FR, CMP, ADIFF, CBC, ANEU #### [address] [address] LABORATORYOrdered By: SYSTEM SYSTEM on 12-16-2022 Albumin BCP dye [Mass/Vol] 3.8 G/dL Invalid Interpretation Code 3.4 - 4.8 G/dL AO ADM SS Albumin/Globulin [Mass ratio] 1.1 {ratio} Invalid Interpretation Code 1.1 - 2.5 ratio AO ADM SS ALP [Catalytic activity/Vol] 77 U/L Invalid Interpretation Code 40 - 135 U/L AO ADM SS ALT With P-5'-P [Catalytic activity/Vol] 16 U/L Invalid Interpretation Code 16 - 63 U/L AO ADM SS AST With P-5'-P [Catalytic activity/Vol] 15 U/L Invalid Interpretation Code 10 - 40 U/L AO ADM SS Basophil, Absolute 0.1 103/mcL Invalid Interpretation Code 0.0 - 0.2 10^3/mcL AO Workflow SS Basophils/100 WBC (Bld) 0.9 % Invalid Interpretation Code 0.0 - 2.5 % AO Workflow SS Bilirubin [Mass/Vol] 0.6 mg/dL Invalid Interpretation Code 0.2 - 1.0 mg/dL AO ADM SS Comment on above: Interpretive Data: U se of this assay is not recommended for patients undergoing treatment with eltrombopag due to the potential for falsely elevated results. Calcium [Mass/Vol] 8.7 mg/dL Invalid Interpretation Code 8.4 - 10.2 mg/dL AO ADM SS Chloride [Moles/Vol] 102 mmol/L Invalid Interpretation Code 98 - 107 mmol/L AO ADM SS CO2 [Moles/Vol] 31 mmol/L Invalid Interpretation Code 23 - 31 mmol/L AO ADM SS Creatinine [Mass/Vol] 1.14 mg/dL Invalid Interpretation Code 0.70 - 1.30 mg/dL AO ADM SS Electrolyte Balance 8.0 mEq/L Invalid Interpretation Code 4.0 - 15.0 mEq/L AO ADM SS Eosinophil, Absolute 0.1 103/mcL Invalid Interpretation Code 0.0 - 0.4 10^3/mcL AO Workflow SS Eosinophils/100 WBC (Bld) 1.9 % Invalid Interpretation Code 0.0 - 7.0 % AO Workflow SS Erythrocyte distribution width (RBC) [Ratio] 14.1 % Invalid Interpretation Code 11.5 - 14.5 % AO Workflow SS GFR/1.73 sq M.predicted among blacks MDRD (S/P/Bld) [Vol rate/Area] 78 ml/min/1.73sqm Invalid Interpretation Code AO Chemistry S Comment on above: Interpretive Data: GFR Population mean for , Non- Americans Ages 20-29 = 116 mL/min/1.73 sq.m. Ages 30-39 = 107 mL/min/1.73 sq.m. Ages 40-49 = 99 mL/min/1.73 sq.m. Ages 50-59 = 93 mL/min/1.73 sq.m. Ages 60-69 = 85 mL/min/1.73 sq.m. Ages 70+ = 75 mL/min/1.73 sq.m. Chronic Kidney Disease: Less than 60 mL/min/1.73 square meters End Stage Renal Disease: Less than 15 mL/min/1.73 square meters GFR/1.73 sq M.predicted among non-blacks MDRD (S/P/Bld) [Vol rate/Area] 64 ml/min/1.73sqm Invalid Interpretation Code AO Chemistry S Comment on above: Interpretive Data: GFR Population mean for , Non- Americans Ages 20-29 = 116 mL/min/1.73 sq.m. Ages 30-39 = 107 mL/min/1.73 sq.m. Ages 40-49 = 99 mL/min/1.73 sq.m. Ages 50-59 = 93 mL/min/1.73 sq.m. Ages 60-69 = 85 mL/min/1.73 sq.m. Ages 70+ = 75 mL/min/1.73 sq.m. Chronic Kidney Disease: Less than 60 mL/min/1.73 square meters End Stage Renal Disease: Less than 15 mL/min/1.73 square meters Globulin 3.4 G/dL Invalid Interpretation Code AO ADM SS Glucose [Mass/Vol] 96 mg/dL Invalid Interpretation Code 80 - 115 mg/dL AO ADM SS Hematocrit (Bld) [Volume fraction] 48.6 % Invalid Interpretation Code 42.0 - 52.0 % AO Workflow SS Hemoglobin (Bld) [Mass/Vol] 16.8 G/dL Invalid Interpretation Code 14.0 - 18.0 G/dL AO Workflow SS Lymphocyte, Absolute 2.6 103/mcL Invalid Interpretation Code 0.8 - 3.9 10^3/mcL AO Workflow SS Lymphocytes/100 WBC (Bld) 38.6 % Invalid Interpretation Code 10.0 - 50.0 % AO Workflow SS MCH (RBC) [Entitic mass] 36.1 pg Invalid Interpretation Code 27.0 - 31.2 pg AO Workflow SS MCHC 34.5 G/dL Invalid Interpretation Code 31.8 - 35.4 G/dL AO Workflow SS MCV (RBC) [Entitic vol] 104.7 fL Invalid Interpretation Code 80.0 - 94.0 fL AO Workflow SS Monocyte, Absolute 0.7 103/mcL Invalid Interpretation Code 0.2 - 1.0 10^3/mcL AO Workflow SS Monocytes/100 WBC (Bld) 9.6 % Invalid Interpretation Code 1.7 - 13.0 % AO Workflow SS Neutrophil, Absolute 3.4 103/mcL Invalid Interpretation Code 2.9 - 6.2 10^3/mcL AO Workflow SS Neutrophils/100 WBC (Bld) 49.0 % Invalid Interpretation Code 37.0 - 80.0 % AO Workflow SS Platelet mean volume (Bld) [Entitic vol] 8.0 fL Invalid Interpretation Code 7.4 - 10.4 fL AO Workflow SS Platelets (Bld) [#/Vol] 202 103/mcL Invalid Interpretation Code 130 - 400 10^3/mcL AO Workflow SS Potassium [Moles/Vol] 4.5 mmol/L Invalid Interpretation Code 3.5 - 5.1 mmol/L AO ADM SS Protein [Mass/Vol] 7.2 G/dL Invalid Interpretation Code 6.4 - 8.2 G/dL AO ADM SS RBC (Bld) [#/Vol] 4.64 106/mcL Invalid Interpretation Code 4.04 - 6.13 10^6/mcL AO Workflow SS Sodium [Moles/Vol] 141 mmol/L Invalid Interpretation Code 136 - 145 mmol/L AO ADM SS Urea nitrogen [Mass/Vol] 15 mg/dL Invalid Interpretation Code 7 - 18 mg/dL AO ADM SS Urea nitrogen/Creatinine [Mass ratio] 13 ratio Invalid Interpretation Code 7 - 27 ratio AO ADM SS WBC (Bld) [#/Vol] 6.8 103/mcL Invalid Interpretation Code 4.6 - 10.8 10^3/mcL AO Workflow SS LABORATORYOrdered By: Otilio Olivarez on 06-19-2022 Albumin DL <= 20 mg/L (U) [Mass/Vol] 1146 mcg/dL Invalid Interpretation Code AO ADM SS Albumin/Creatinine DL <= 20 mg/L (U) [Mass ratio] 6 mcg/mg Invalid Interpretation Code 0 - 30 mcg/mg AO ADM SS Creatinine (U) [Mass/Vol] 178.7 mg/dL Invalid Interpretation Code 39.0 - 259.0 mg/dL AO ADM SS INR in Blood by Coagulation assayon 10-20-2021 INR Coag (Bld) [Relative time] 0.9 {INR} [facility] Work Phone: Laboratory - Coagulationon 0 10-20-2021 PT Coag (PPP) [Time] 11.6 s 11.7-14.9 [facility] Work Phone: Platelets bldon 10-20-2021 Platelets (Bld) [#/Vol] 220 10*3/uL 150-450 [facility] Work Phone: Basophil percentageon 2021 Creatinine [Mass/Vol] 1.0 mg/dL 0.70-1.30 [facility] Work Phone: No Panel Informationon 08-29 Bedside Estimated GFR (eGFR) > 60.0000 mL/min >60 [facility] Work Phone: LABORATORYOrdered By: Otilio Olivarez on 06-25-2021 Albumin BCP dye [Mass/Vol] 3.7 G/dL Invalid Interpretation Code 3.4 - 4.8 G/dL AO ADM SS Albumin/Globulin [Mass ratio] 1.1 {ratio} Invalid Interpretation Code 1.1 - 2.5 ratio AO ADM SS ALP [Catalytic activity/Vol] 62 U/L Invalid Interpretation Code 40 - 135 U/L AO ADM SS ALT With P-5'-P [Catalytic activity/Vol] 19 U/L Invalid Interpretation Code 16 - 63 U/L AO ADM SS AST With P-5'-P [Catalytic activity/Vol] 18 U/L Invalid Interpretation Code 10 - 40 U/L AO ADM SS Bilirubin [Mass/Vol] 0.2 mg/dL Invalid Interpretation Code 0.2 - 1.0 mg/dL AO ADM SS Calcium [Mass/Vol] 8.8 mg/dL Invalid Interpretation Code 8.4 - 10.2 mg/dL AO ADM SS Chloride [Moles/Vol] 101 mmol/L Invalid Interpretation Code 98 - 107 mmol/L AO ADM SS Cholesterol [Mass/Vol] 230 mg/dL Invalid Interpretation Code 0 - 200 mg/dL AO ADM SS Cholesterol in HDL [Mass/Vol] 101 mg/dL Invalid Interpretation Code 40 - 60 mg/dL AO ADM SS Cholesterol in LDL [Mass/Vol] 118 mg/dL Invalid Interpretation Code 0 - 130 mg/dL AO ADM SS CO2 [Moles/Vol] 31 mmol/L Invalid Interpretation Code 23 - 31 mmol/L AO ADM SS Creatinine [Mass/Vol] 1.18 mg/dL Invalid Interpretation Code 0.70 - 1.30 mg/dL AO ADM SS Electrolyte Balance 8.0 mEq/L Invalid Interpretation Code 4.0 - 15.0 mEq/L AO ADM SS Globulin 3.3 G/dL Invalid Interpretation Code AO ADM SS Glucose [Mass/Vol] 101 mg/dL Invalid Interpretation Code 80 - 115 mg/dL AO ADM SS Potassium [Moles/Vol] 4.9 mmol/L Invalid Interpretation Code 3.5 - 5.1 mmol/L AO ADM SS Prostate specific Ag [Mass/Vol] 1.26 ng/mL Invalid Interpretation Code 0.00 - 4.00 ng/mL AO ADM SS Protein [Mass/Vol] 7.0 G/dL Invalid Interpretation Code 6.4 - 8.2 G/dL AO ADM SS Sodium [Moles/Vol] 140 mmol/L Invalid Interpretation Code 136 - 145 mmol/L AO ADM SS Triglyceride [Mass/Vol] 54 mg/dL Invalid Interpretation Code 0 - 150 mg/dL AO ADM SS TSH Qn 2.02 m[IU]/L Invalid Interpretation Code 0.36 - 3.74 mcIU/mL AO ADM SS Urea nitrogen [Mass/Vol] 14 mg/dL Invalid Interpretation Code 7 - 18 mg/dL AO ADM SS Urea nitrogen/Creatinine [Mass ratio] 12 ratio Invalid Interpretation Code 7 - 27 ratio AO ADM SS LABORATORYOrdered By: Stephanie Soto on 06-25-2021 Basophil, Absolute 0.10 103/mcL Invalid Interpretation Code 0.00 - 0.19 10^3/mcL AO Auto Heme SS Basophils/100 WBC (Bld) 1.0 % Invalid Interpretation Code 0.0 - 2.5 % AO Auto Heme SS Eosinophil, Absolute 0.20 103/mcL Invalid Interpretation Code 0.00 - 0.40 10^3/mcL AO Auto Heme SS Eosinophils/100 WBC (Bld) 3.6 % Invalid Interpretation Code 0.0 - 7.0 % AO Auto Heme SS Erythrocyte distribution width (RBC) [Ratio] 13.8 % Invalid Interpretation Code 11.5 - 14.5 % AO Auto Heme SS Hematocrit (Bld) [Volume fraction] 48.0 % Invalid Interpretation Code 42.0 - 52.0 % AO Auto Heme SS Hemoglobin (Bld) [Mass/Vol] 16.5 G/dL Invalid Interpretation Code 14.0 - 18.0 G/dL AO Auto Heme SS Lymphocyte, Absolute 2.10 103/mcL Invalid Interpretation Code 0.77 - 3.85 10^3/mcL AO Auto Heme SS Lymphocytes/100 WBC (Bld) 34.7 % Invalid Interpretation Code 10.0 - 50.0 % AO Auto Heme SS MCH (RBC) [Entitic mass] 34.7 pg Invalid Interpretation Code 27.0 - 31.2 pg AO Auto Heme SS MCHC (RBC) [Mass/Vol] 34.4 G/dL Invalid Interpretation Code 31.8 - 35.4 G/dL AO Auto Heme SS MCV (RBC) [Entitic vol] 100.8 fL Invalid Interpretation Code 80.0 - 94.0 fL AO Auto Heme SS Monocyte, Absolute 0.50 103/mcL Invalid Interpretation Code 0.15 - 1.00 10^3/mcL AO Auto Heme SS Monocytes/100 WBC (Bld) 8.9 % Invalid Interpretation Code 1.7 - 13.0 % AO Auto Heme SS Neutrophil, Absolute 3.10 103/mcL Invalid Interpretation Code 2.85 - 6.16 10^3/mcL AO Auto Heme SS Neutrophils/100 WBC (Bld) 51.8 % Invalid Interpretation Code 37.0 - 80.0 % AO Auto Heme SS Platelet mean volume (Bld) [Entitic vol] 8.2 fL Invalid Interpretation Code 7.4 - 10.4 fL AO Auto Heme SS Platelets (Bld) [#/Vol] 244 103/mcL Invalid Interpretation Code 130 - 400 10^3/mcL AO Auto Heme SS RBC (Bld) [#/Vol] 4.76 106/mcL Invalid Interpretation Code 4.04 - 6.13 10^6/mcL AO Auto Heme SS WBC (Bld) [#/Vol] 5.90 103/mcL Invalid Interpretation Code 4.60 - 10.80 10^3/mcL AO Auto Heme SS LABORATORYOrdered By: SYSTEM SYSTEM on 06-25-2021 GFR 76 ml/min/1.73sqm Invalid Interpretation Code AO Chemistry S GFR Non- 62 ml/min/1.73sqm Invalid Interpretation Code AO Chemistry S Vital Signs Date Time Vital Sign Value Performing Clinician Faci lity 07-14-2024 10:50-0400 Body height 180.34 cm Chu Baltes LABORATORY OPERATIONS COORDINATOR-C Work Phone: [facility] 07-14-2024 10:50-0400 Body mass index (BMI) [Ratio] 25.6 kg/m2 Chu Baltes LABORATORY OPERATIONS COORDINATOR-C Work Phone: [facility] 07-14-2024 10:50-0400 Body temperature 98 [degF] Chu Baltes LABORATORY OPERATIONS COORDINATOR-C Work Phone: [facility] 07-14-2024 10:50-0400 Body weight 83.23 kg Chu Baltes LABORATORY OPERATIONS COORDINATOR-C Work Phone: [facility] 07-14-2024 10:50-0400 Diastolic blood pressure 82 mm[Hg] Chu Baltes LABORATORY OPERATIONS COORDINATOR-C Work Phone: [facility] 07-14-2024 10:50-0400 Heart rate 72 /min Chu Baltes LABORATORY OPERATIONS COORDINATOR-C Work Phone: [facility] 07-14-2024 10:50-0400 Respiratory rate 18 /min Chu Baltes LABORATORY OPERATIONS COORDINATOR-C Work Phone: [facility] 07-14-2024 10:50-0400 SaO2% (BldA) [Mass fraction] 94 % Chu Baltes LABORATORY OPERATIONS COORDINATOR-C Work Phone: [facility] 07-14-2024 10:50-0400 Systolic blood pressure 145 mm[Hg] Chu Baltes LABORATORY OPERATIONS COORDINATOR-C Work Phone: [facility] 07-06-2023 11:34-0400 Diastolic blood pressure 89 mm[Hg] LABORATORY OPERATIONS COORDINATOR-C Chu Baltes LABORATORY OPERATIONS COORDINATOR Work Phone: [facility] 07-06-2023 11:34-0400 Heart rate 67 /min LABORATORY OPERATIONS COORDINATOR-C Chu Baltes LABORATORY OPERATIONS COORDINATOR Work Phone: [facility] 07-06-2023 11:34-0400 Respiratory rate 16 /min LABORATORY OPERATIONS COORDINATOR-C Chu Baltes LABORATORY OPERATIONS COORDINATOR Work Phone: [facility] 07-06-2023 11:34-0400 SaO2% (BldA) [Mass fraction] 96 % LABORATORY OPERATIONS COORDINATOR-C Chu Baltes LABORATORY OPERATIONS COORDINATOR Work Phone: [facility] 07-06-2023 11:34-0400 Systolic blood pressure 133 mm[Hg] LABORATORY OPERATIONS COORDINATOR-C Chu Baltes LABORATORY OPERATIONS COORDINATOR Work Phone: [facility] 07-06-2023 08:10-0400 Body height 180.34 cm LABORATORY OPERATIONS COORDINATOR-C Chu Baltes LABORATORY OPERATIONS COORDINATOR Work Phone: [facility] 07-06-2023 08:10-0400 Body mass index (BMI) [Ratio] 24 kg/m2 LABORATORY OPERATIONS COORDINATOR-C Chu Baltes LABORATORY OPERATIONS COORDINATOR Work Phone: [facility] 07-06-2023 08:10-0400 Body temperature 98.1 [degF] LABORATORY OPERATIONS COORDINATOR-C Chu Baltes LABORATORY OPERATIONS COORDINATOR Work Phone: [facility] 07-06-2023 08:10-0400 Body weight 78.01 kg LABORATORY OPERATIONS COORDINATOR-C Chu Baltes LABORATORY OPERATIONS COORDINATOR Work Phone: [facility] 06-23-2023 08:18-0400 Body mass index (BMI) [Ratio] 23.8 kg/m2 LABORATORY OPERATIONS COORDINATOR-C Chu Baltes LABORATORY OPERATIONS COORDINATOR Work Phone: [facility] 06-23-2023 08:18-0400 Body temperature 98.6 [degF] LABORATORY OPERATIONS COORDINATOR-C Chu Baltes LABORATORY OPERATIONS COORDINATOR Work Phone: [facility] 06-23-2023 08:18-0400 Body weight 77.56 kg LABORATORY OPERATIONS COORDINATOR-C Chu Baltes LABORATORY OPERATIONS COORDINATOR Work Phone: [facility] 06-23-2023 08:18-0400 Diastolic blood pressure 71 mm[Hg] LABORATORY OPERATIONS COORDINATOR-C Chu Baltes LABORATORY OPERATIONS COORDINATOR Work Phone: [facility] 06-23-2023 08:18-0400 Heart rate 75 /min LABORATORY OPERATIONS COORDINATOR-C Chu Baltes LABORATORY OPERATIONS COORDINATOR Work Phone: [facility] 06-23-2023 08:18-0400 Respiratory rate 20 /min LABORATORY OPERATIONS COORDINATOR-C Chu Baltes LABORATORY OPERATIONS COORDINATOR Work Phone: [facility] 06-23-2023 08:18-0400 SaO2% (BldA) [Mass fraction] 96 % LABORATORY OPERATIONS COORDINATOR-C Chu Baltes LABORATORY OPERATIONS COORDINATOR Work Phone: [facility] 06-23-2023 08:18-0400 Systolic blood pressure 156 mm[Hg] LABORATORY OPERATIONS COORDINATOR-C Chu Baltes LABORATORY OPERATIONS COORDINATOR Work Phone: [facility] 06-08-2023 13:54-0400 Body height 180.34 cm LABORATORY OPERATIONS COORDINATOR-C Chu Baltes LABORATORY OPERATIONS COORDINATOR Work Phone: [facility] 06-08-2023 12:53-0400 Body mass index (BMI) [Ratio] 23.8 kg/m2 LABORATORY OPERATIONS COORDINATOR-C Chu Baltes LABORATORY OPERATIONS COORDINATOR Work Phone: [facility] 06-08-2023 12:53-0400 Body temperature 99.5 [degF] LABORATORY OPERATIONS COORDINATOR-C Chu Baltes LABORATORY OPERATIONS COORDINATOR Work Phone: [facility] 06-08-2023 12:53-0400 Body weight 77.59 kg LABORATORY OPERATIONS COORDINATOR-C Chu Baltes LABORATORY OPERATIONS COORDINATOR Work Phone: [facility] 06-08-2023 12:53-0400 Diastolic blood pressure 77 mm[Hg] LABORATORY OPERATIONS COORDINATOR-C Chu Baltes LABORATORY OPERATIONS COORDINATOR Work Phone: [facility] 06-08-2023 12:53-0400 Heart rate 70 /min LABORATORY OPERATIONS COORDINATOR-C Chu Baltes LABORATORY OPERATIONS COORDINATOR Work Phone: [facility] [facility] 06-08-2023 12:53-0400 Respiratory rate 18 /min LABORATORY OPERATIONS COORDINATOR-C Chu Baltes LABORATORY OPERATIONS COORDINATOR Work Phone: [facility] 06-08-2023 12:53-0400 SaO2% (BldA) [Mass fraction] 93 % LABORATORY OPERATIONS COORDINATOR-C Chu Baltes LABORATORY OPERATIONS COORDINATOR Work Phone: [facility] 06-08-2023 12:53-0400 Systolic blood pressure 136 mm[Hg] LABORATORY OPERATIONS COORDINATOR-C Chu Baltes LABORATORY OPERATIONS COORDINATOR Work Phone: [facility] 12-10-2022 15:37-0400 Body height 180.34 cm LABORATORY OPERATIONS COORDINATOR-C Chu Baltes LABORATORY OPERATIONS COORDINATOR Work Phone: [facility] 12-10-2022 15:37-0400 Body mass index (BMI) [Ratio] 26.3 kg/m2 LABORATORY OPERATIONS COORDINATOR-C Chu Baltes LABORATORY OPERATIONS COORDINATOR Work Phone: [facility] 12-10-2022 15:37-0400 Body temperature 99.1 [degF] LABORATORY OPERATIONS COORDINATOR-C Chu Baltes LABORATORY OPERATIONS COORDINATOR Work Phone: [facility] 12-10-2022 15:37-0400 Body weight 85.72 kg LABORATORY OPERATIONS COORDINATOR-C Chu Baltes LABORATORY OPERATIONS COORDINATOR Work Phone: [facility] 12-10-2022 15:37-0400 Diastolic blood pressure 78 mm[Hg] LABORATORY OPERATIONS COORDINATOR-C Chu Baltes LABORATORY OPERATIONS COORDINATOR Work Phone: [facility] 12-10-2022 15:37-0400 Heart rate 86 /min LABORATORY OPERATIONS COORDINATOR-C Chu Baltes LABORATORY OPERATIONS COORDINATOR Work Phone: [facility] 12-10-2022 15:37-0400 Respiratory rate 16 /min LABORATORY OPERATIONS COORDINATOR-C Chu Baltes LABORATORY OPERATIONS COORDINATOR Work Phone: [facility] 12-10-2022 15:37-0400 SaO2% (BldA) [Mass fraction] 95 % LABORATORY OPERATIONS COORDINATOR-C Chu Baltes LABORATORY OPERATIONS COORDINATOR Work Phone: [facility] 12-10-2022 15:37-0400 Systolic blood pressure 118 mm[Hg] LABORATORY OPERATIONS COORDINATOR-C Chu Baltes LABORATORY OPERATIONS COORDINATOR Work Phone: [facility] 03-02-2022 11:12-0500 Body height 180.34 cm LABORATORY OPERATIONS COORDINATOR-C Chu Baltes LABORATORY OPERATIONS COORDINATOR Work Phone: [facility] 03-02-2022 11:08-0500 Body mass index (BMI) [Ratio] 25.1 kg/m2 LABORATORY OPERATIONS COORDINATOR-C Chu Baltes LABORATORY OPERATIONS COORDINATOR Work Phone: [facility] 03-02-2022 11:08-0500 Body temperature 97 [degF] LABORATORY OPERATIONS COORDINATOR-C Chu Baltes LABORATORY OPERATIONS COORDINATOR Work Phone: [facility] 03-02-2022 11:08-0500 Body weight 81.76 kg LABORATORY OPERATIONS COORDINATOR-C Chu Baltes LABORATORY OPERATIONS COORDINATOR Work Phone: [facility] 03-02-2022 11:08-0500 Diastolic blood pressure 77 mm[Hg] LABORATORY OPERATIONS COORDINATOR-C Chu Baltes LABORATORY OPERATIONS COORDINATOR Work Phone: [facility] 03-02-2022 11:08-0500 Heart rate 76 /min LABORATORY OPERATIONS COORDINATOR-C Chu Baltes LABORATORY OPERATIONS COORDINATOR Work Phone: [facility] 03-02-2022 11:08-0500 Respiratory rate 16 /min LABORATORY OPERATIONS COORDINATOR-C Chu Baltes LABORATORY OPERATIONS COORDINATOR Work Phone: [facility] 03-02-2022 11:08-0500 SaO2% (BldA) [Mass fraction] 95 % LABORATORY OPERATIONS COORDINATOR-C Chu Baltes LABORATORY OPERATIONS COORDINATOR Work Phone: [facility] 03-02-2022 11:08-0500 Systolic blood pressure 124 mm[Hg] LABORATORY OPERATIONS COORDINATOR-C Chu Baltes LABORATORY OPERATIONS COORDINATOR Work Phone: [facility] 10-28-2021 13:38-0400 Body weight 89.61 kg LABORATORY OPERATIONS COORDINATOR-C Chu Baltes LABORATORY OPERATIONS COORDINATOR Work Phone: [facility] 10-22-2021 13:17-0400 Body height 180.34 cm LABORATORY OPERATIONS COORDINATOR-C Chu Baltes LABORATORY OPERATIONS COORDINATOR Work Phone: [facility] Work Phone: 10-22-2021 13:14-0400 Body mass index (BMI) [Ratio] 27.5 kg/m2 LABORATORY OPERATIONS COORDINATOR-C Chu Baltes LABORATORY OPERATIONS COORDINATOR Work Phone: [facility] Work Phone: 10-22-2021 13:14-0400 Body temperature 98.8 [degF] LABORATORY OPERATIONS COORDINATOR-C Chu Baltes LABORATORY OPERATIONS COORDINATOR Work Phone: [facility] Work Phone: 10-22-2021 13:14-0400 Body weight 89.61 kg LABORATORY OPERATIONS COORDINATOR-C Chu Baltes LABORATORY OPERATIONS COORDINATOR Work Phone: [facility] Work Phone: 10-22-2021 13:14-0400 Diastolic blood pressure 75 mm[Hg] LABORATORY OPERATIONS COORDINATOR-C Chu Baltes LABORATORY OPERATIONS COORDINATOR Work Phone: [facility] Work Phone: 10-22-2021 13:14-0400 Heart rate 86 /min LABORATORY OPERATIONS COORDINATOR-C Chu Baltes LABORATORY OPERATIONS COORDINATOR Work Phone: [facility] Work Phone: 10-22-2021 13:14-0400 Respiratory rate 16 /min LABORATORY OPERATIONS COORDINATOR-C Chu Baltes LABORATORY OPERATIONS COORDINATOR Work Phone: [facility] Work Phone: 10-22-2021 13:14-0400 SaO2% (BldA) [Mass fraction] 95 % LABORATORY OPERATIONS COORDINATOR-C Chu Baltes LABORATORY OPERATIONS COORDINATOR Work Phone: [facility] Work Phone: 10-22-2021 13:14-0400 Systolic blood pressure 128 mm[Hg] LABORATORY OPERATIONS COORDINATOR-C Chu Baltes LABORATORY OPERATIONS COORDINATOR Work Phone: [facility] Work Phone: 10-17-2021 13:44-0400 Body mass index (BMI) [Ratio] 27.5 kg/m2 LABORATORY OPERATIONS COORDINATOR-C Chu Baltes LABORATORY OPERATIONS COORDINATOR Work Phone: [facility] Work Phone: 10-17-2021 13:44-0400 Body temperature 97.5 [degF] LABORATORY OPERATIONS COORDINATOR-C Chu Baltes LABORATORY OPERATIONS COORDINATOR Work Phone: [facility] Work Phone: 10-17-2021 13:44-0400 Body weight 89.58 kg LABORATORY OPERATIONS COORDINATOR-C Chu Baltes LABORATORY OPERATIONS COORDINATOR Work Phone: [facility] Work Phone: 10-17-2021 13:44-0400 Diastolic blood pressure 81 mm[Hg] LABORATORY OPERATIONS COORDINATOR-C Chu Baltes LABORATORY OPERATIONS COORDINATOR Work Phone: [facility] Work Phone: 10-17-2021 13:44-0400 Heart rate 76 /min LABORATORY OPERATIONS COORDINATOR-C Chu Baltes LABORATORY OPERATIONS COORDINATOR Work Phone: [facility] Work Phone: 10-17-2021 13:44-0400 Respiratory rate 16 /min LABORATORY OPERATIONS COORDINATOR-C Chu Baltes LABORATORY OPERATIONS COORDINATOR Work Phone: [facility] Work Phone: 10-17-2021 13:44-0400 SaO2% (BldA) [Mass fraction] 96 % LABORATORY OPERATIONS COORDINATOR-C Chu Baltes LABORATORY OPERATIONS COORDINATOR Work Phone: [facility] Work Phone: 10-17-2021 13:44-0400 Systolic blood pressure 157 mm[Hg] LABORATORY OPERATIONS COORDINATOR-C Chu Baltes LABORATORY OPERATIONS COORDINATOR Work Phone: [facility] Work Phone: 10-15-2021 13:38-0400 Body mass index (BMI) [Ratio] 27.6 kg/m2 LABORATORY OPERATIONS COORDINATOR-C Chu Baltes LABORATORY OPERATIONS COORDINATOR Work Phone: [facility] Work Phone: 10-15-2021 13:38-0400 Body temperature 98.2 [degF] LABORATORY OPERATIONS COORDINATOR-C Chu Baltes LABORATORY OPERATIONS COORDINATOR Work Phone: [facility] Work Phone: 10-15-2021 13:38-0400 Body weight 89.98 kg LABORATORY OPERATIONS COORDINATOR-C Chu Baltes LABORATORY OPERATIONS COORDINATOR Work Phone: [facility] Work Phone: 10-15-2021 13:38-0400 Diastolic blood pressure 83 mm[Hg] LABORATORY OPERATIONS COORDINATOR-C Chu Baltes LABORATORY OPERATIONS COORDINATOR Work Phone: [facility] Work Phone: 10-15-2021 13:38-0400 Heart rate 76 /min LABORATORY OPERATIONS COORDINATOR-C Chu Baltes LABORATORY OPERATIONS COORDINATOR Work Phone: [facility] Work Phone: 10-15-2021 13:38-0400 Respiratory rate 16 /min LABORATORY OPERATIONS COORDINATOR-C Cuh Baltes LABORATORY OPERATIONS COORDINATOR Work Phone: [facility] Work Phone: 10-15-2021 13:38-0400 SaO2% (BldA) [Mass fraction] 96 % LABORATORY OPERATIONS COORDINATOR-C Chu Baltes LABORATORY OPERATIONS COORDINATOR Work Phone: [facility] Work Phone: 10-15-2021 13:38-0400 Systolic blood pressure 141 mm[Hg] LABORATORY OPERATIONS COORDINATOR-C Chu Baltes LABORATORY OPERATIONS COORDINATOR Work Phone: [facility] Work Phone: 10-08-2021 13:44-0400 Body mass index (BMI) [Ratio] 27.2 kg/m2 LABORATORY OPERATIONS COORDINATOR-C Chu Baltes LABORATORY OPERATIONS COORDINATOR Work Phone: [facility] Work Phone: 10-08-2021 13:44-0400 Body temperature 98.3 [degF] LABORATORY OPERATIONS COORDINATOR-C Chu Baltes LABORATORY OPERATIONS COORDINATOR Work Phone: [facility] Work Phone: 10-08-2021 13:44-0400 Body weight 88.7 kg LABORATORY OPERATIONS COORDINATOR-C Chu Baltes LABORATORY OPERATIONS COORDINATOR Work Phone: [facility] Work Phone: 10-08-2021 13:44-0400 Diastolic blood pressure 85 mm[Hg] LABORATORY OPERATIONS COORDINATOR-C Chu Baltes LABORATORY OPERATIONS COORDINATOR Work Phone: [facility] Work Phone: 10-08-2021 13:44-0400 Heart rate 78 /min LABORATORY OPERATIONS COORDINATOR-C Chu Baltes LABORATORY OPERATIONS COORDINATOR Work Phone: [facility] Work Phone: 10-08-2021 13:44-0400 Respiratory rate 16 /min LABORATORY OPERATIONS COORDINATOR-C Chu Baltes LABORATORY OPERATIONS COORDINATOR Work Phone: [facility] Work Phone: 10-08-2021 13:44-0400 SaO2% (BldA) [Mass fraction] 97 % LABORATORY OPERATIONS COORDINATOR-C Chu Baltes LABORATORY OPERATIONS COORDINATOR Work Phone: [facility] Work Phone: 10-08-2021 13:44-0400 Systolic blood pressure 132 mm[Hg] LABORATORY OPERATIONS COORDINATOR-C Chu Baltes LABORATORY OPERATIONS COORDINATOR Work Phone: [facility] Work Phone: 09-23-2021 13:11-0400 Body mass index (BMI) [Ratio] 27.1 kg/m2 LABORATORY OPERATIONS COORDINATOR-C Chu Baltes LABORATORY OPERATIONS COORDINATOR Work Phone: [facility] Work Phone: 09-23-2021 13:11-0400 Body temperature 99 [degF] LABORATORY OPERATIONS COORDINATOR-C Chu Baltes LABORATORY OPERATIONS COORDINATOR Work Phone: [facility] Work Phone: 09-23-2021 13:11-0400 Body weight 88.08 kg LABORATORY OPERATIONS COORDINATOR-C Chu Baltes LABORATORY OPERATIONS COORDINATOR Work Phone: [facility] Work Phone: 09-23-2021 13:11-0400 Diastolic blood pressure 79 mm[Hg] LABORATORY OPERATIONS COORDINATOR-C Chu Baltes LABORATORY OPERATIONS COORDINATOR Work Phone: [facility] Work Phone: 09-23-2021 13:11-0400 Heart rate 78 /min LABORATORY OPERATIONS COORDINATOR-C Chu Baltes LABORATORY OPERATIONS COORDINATOR Work Phone: [facility] Work Phone: 09-23-2021 13:11-0400 Respiratory rate 16 /min LABORATORY OPERATIONS COORDINATOR-C Chu Baltes LABORATORY OPERATIONS COORDINATOR Work Phone: [facility] Work Phone: 09-23-2021 13:11-0400 SaO2% (BldA) [Mass fraction] 96 % LABORATORY OPERATIONS COORDINATOR-C Chu Baltes LABORATORY OPERATIONS COORDINATOR Work Phone: [facility] Work Phone: 09-23-2021 13:11-0400 Systolic blood pressure 156 mm[Hg] LABORATORY OPERATIONS COORDINATOR-C Chu Baltes LABORATORY OPERATIONS COORDINATOR Work Phone: [facility] Work Phone: 08-05-2021 13:45-0400 Body temperature 98.2 [degF] [facility] Work Phone: 08-05-2021 13:45-0400 Diastolic blood pressure 81 mm[Hg] [facility] Work Phone: 08-05-2021 13:45-0400 Heart rate 71 /min [facility] Work Phone: 08-05-2021 13:45-0400 Respiratory rate 16 /min [facility] Work Phone: 08-05-2021 13:45-0400 SaO2% (BldA) [Mass fraction] 95 % [facility] Work Phone: 08-05-2021 13:45-0400 Systolic blood pressure 139 mm[Hg] [facility] Work Phone: 08-05-2021 09:40-0400 Body height 180.34 cm [facility] Work Phone: 08-05-2021 09:40-0400 Body mass index (BMI) [Ratio] 26.4 kg/m2 [facility] Work Phone: 08-05-2021 09:40-0400 Body weight 86 kg [facility] Work Phone: Encounters Encounter Date Encounter Type Care Provider Facility Start: 10-11-2024 ambulatory Chu Iglesias LABORATORY OPERATIONS COORDINATOR Facility :[facility] Start: 08-04-2024 End: 08-04-2024 ambulatory Chu Iglesias LABORATORY OPERATIONS COORDINATOR-C Work Phone: [facility] Work Phone: Start: 08-04-2024 End: 08-04-[address] Yobany Villela DO -Radiology [facility] Work Phone: Start: 08-04-2024 End: 08-04-2024 ambulatory hCu Iglesias LABORATORY OPERATIONS COORDINATOR Facility:[facility] Start: 07-14-2024 End: 07-14-[address] Yobany Villela DO -[facility] Work Phone: Start: 07-14-2024 End: 07-14-2024 ambulatory Chu Iglesias LABORATORY OPERATIONS COORDINATOR Facility:[facility] Start: 06-23-2024 End: 06-27-2024 ambulatory CHU BALTES LOT TECHNICIAN-INBOUND SALES CONSULTANT Facility:[facility] Start: 04-05-2024 End: 04-09-2024 ambulatory CHU BALTES LOT TECHNICIAN-INBOUND SALES CONSULTANT Facility:[facility] Start: 04-05-2024 End: 04-09-2024 Outreach Lab CHU BALTES LOT TECHNICIAN-INBOUND SALES CONSULTANT [facility] Start: 01-24-2024 End: 01-24-2024 ambulatory CHU BALTES LOT TECHNICIAN-INBOUND SALES CONSULTANT Facility:[facility] Start: 01-24-2024 End: 01-24-2024 Patient encounter procedure CHU BALTES LOT TECHNICIAN-INBOUND SALES CONSULTANT [facility] Start: 12-22-2023 End: 12-22-2023 ambulatory CHU BALTES LOT TECHNICIAN-INBOUND SALES CONSULTANT Facility:[facility] Start: 12-22-2023 End: 12-22-2023 Patient encounter procedure CHU BALKIMMY LOT TECHNICIAN-INBOUND SALES CONSULTANT [facility] Start: 12-13-2023 End: 12-13-2023 ambulatory Chu Baltes LABORATORY OPERATIONS COORDINATOR Facility:[facility] Start: 11-19-2023 End: 11-19-2023 ambulatory Chu Baltes LABORATORY OPERATIONS COORDINATOR Facility:[facility] Start: 11-09-2023 End: 11-09-2023 ambulatory Chu Baltes LABORATORY OPERATIONS COORDINATOR Facility:[facility] Start: 07-09-2023 End: 07-09-2023 ambulatory LABORATORY OPERATIONS COORDINATOR-C Chu Iglesias LABORATORY OPERATIONS COORDINATOR Work Phone: [facility] Work Phone: Start: 07-09-2023 End: 07-09-2023 Patient encounter procedure LABORATORY OPERATIONS COORDINATOR-C Chu Iglesias LABORATORY OPERATIONS COORDINATOR Work Phone: [facility]-Pulmonary Services/Neurology Work Phone: Start: 07-06-2023 Non-patient / Non-visit LABORATORY OPERATIONS COORDINATOR-C Radha Iglesias LABORATORY OPERATIONS COORDINATOR Work Phone: [facility] Start: 07-06-2023 End: 07-06-2023 ambulatory LABORATORY OPERATIONS COORDINATOR-C Chu Baltes LABORATORY OPERATIONS COORDINATOR Work Phone: [facility] Work Phone: Start: 07-06-2023 End: 07-06-2023 Patient encounter procedure LABORATORY OPERATIONS COORDINATOR-C Chu Calverttes LABORATORY OPERATIONS COORDINATOR Work Phone: [facility] Work Phone: Start: 06-25-2023 End: 06-30-2023 ambulatory CHU BALTES LOT TECHNICIAN-INBOUND SALES CONSULTANT Facility:[facility] Start: 06-25-2023 End: 06-29-2023 Outreach Lab CHU BALTES LOT TECHNICIAN-INBOUND SALES CONSULTANT [facility] Start: 06-24-2023 End: 06-25-2023 ambulatory CHU BALTES LOT TECHNICIAN-INBOUND SALES CONSULTANT Facility:[facility] Start: 06-24-2023 End: 06-24-2023 Patient encounter procedure CHU ENRIKEKIMMY LOT TECHNICIAN-INBOUND SALES CONSULTANT [facility] Start: 06-23-2023 End: 06-23-2023 Patient encounter procedure LABORATORY OPERATIONS COORDINATOR-C Chu Iglesias LABORATORY OPERATIONS COORDINATOR Work Phone: [facility] Pulmonary [facility] Work Phone: Start: 06-08-2023 End: 06-08-2023 ambulatory LABORATORY OPERATIONS COORDINATOR-C Chu Iglesias LABORATORY OPERATIONS COORDINATOR Work Phone: [facility] Work Phone: Start: 06-08-2023 End: 06-08-2023 Patient encounter procedure LABORATORY OPERATIONS COORDINATOR-C Chu Calverttes LABORATORY OPERATIONS COORDINATOR Work Phone: [facility] Work Phone: Start: 06-08-2023 End: 06-08-2023 Patient encounter procedure LABORATORY OPERATIONS COORDINATOR-C Chu Enriketes LABORATORY OPERATIONS COORDINATOR Work Phone: [facility] Cancer [facility] Work Phone: Start: 04-05-2023 End: 04-05-2023 ambulatory LABORATORY OPERATIONS COORDINATOR-C Chu Enriketes LABORATORY OPERATIONS COORDINATOR Work Phone: [facility] Work Phone: Start: 04-05-2023 End: 04-05-2023 Patient encounter procedure LABORATORY OPERATIONS COORDINATOR-C Chu Iglesias LABORATORY OPERATIONS COORDINATOR Work Phone: [facility]-Radiology, [facility] Work Phone: Start: 12-16-2022 End: 12-17-2022 ambulatory CHU IGLESIAS LOT TECHNICIAN-INBOUND SALES CONSULTANT Facility:[facility] Start: 12-16-2022 End: 12-16-2022 Patient encounter procedure CHU IGLESIAS LOT TECHNICIAN-INBOUND SALES CONSULTANT [facility] Start: 12-16-2022 End: 12-16-2022 Well adult monitoring check done CHU IGLESIAS LOT TECHNICIAN-INBOUND SALES CONSULTANT [facility] Start: 12-10-2022 End: 12-10-2022 Patient encounter procedure LABORATORY OPERATIONS COORDINATOR-C Chu Iglesias LABORATORY OPERATIONS COORDINATOR Work Phone: [facility] Cancer [facility] Work Phone: Start: 06-19-2022 End: 06-23-2022 Outreach Lab CHU CALVERTKIMMY LOT TECHNICIAN-INBOUND SALES CONSULTANT [facility] Start: 04-27-2022 End: 04-27-2022 Patient encounter procedure EDITH MAST LOT TECHNICIAN-INBOUND SALES CONSULTANT [facility] Start: 04-07-2022 Registered Recurring LABORATORY OPERATIONS COORDINATOR-C Chu Iglesias LABORATORY OPERATIONS COORDINATOR Work Phone: [facility]-Speech Therapy Start: 04-02-2022 End: 04-02-2022 ambulatory LABORATORY OPERATIONS COORDINATOR-C Chu Iglesias LABORATORY OPERATIONS COORDINATOR Work Phone: [facility] Work Phone: Start: 04-02-2022 End: 04-02-2022 Patient encounter procedure LABORATORY OPERATIONS COORDINATOR-C Chu Iglesias LABORATORY OPERATIONS COORDINATOR [facility] Start: 03-02-2022 End: 03-02-2022 Patient encounter procedure LABORATORY OPERATIONS COORDINATOR-Jeet Iglesias LABORATORY OPERATIONS COORDINATOR Work Phone: [facility] Start: 02-25-2022 Registered Recurring LABORATORY OPERATIONS COORDINATOR-Jeet Iglesias LABORATORY OPERATIONS COORDINATOR Work Phone: [facility] Start: 10-23-2021 Registered Recurring LABORATORY OPERATIONS COORDINATOR-C Chu Iglesias LABORATORY OPERATIONS COORDINATOR [facility] Start: 10-22-2021 End: 10-22-2021 Patient encounter procedure LABORATORY OPERATIONS COORDINATOR-Jeet Iglesias LABORATORY OPERATIONS COORDINATOR Work Phone: [facility] Start: 10-20-2021 End: 10-20-2021 Patient encounter procedure LABORATORY OPERATIONS COORDINATOR-C Chu Iglesias LABORATORY OPERATIONS COORDINATOR Work Phone: [facility]-Laboratory, OP Pavilion Start: 10-17-2021 End: 10-17-2021 Patient encounter procedure LABORATORY OPERATIONS COORDINATOR-C Chu Iglesias LABORATORY OPERATIONS COORDINATOR [facility] Phone[facility] Start: 10-15-2021 End: 10-15-2021 Patient encounter procedure LABORATORY OPERATIONS COORDINATOR-C Chu Iglesias LABORATORY OPERATIONS COORDINATOR Work Phone: [facility] Start: 10-08-2021 End: 10-08-2021 Patient encounter procedure LABORATORY OPERATIONS COORDINATOR-Jeet Iglesias LABORATORY OPERATIONS COORDINATOR Work Phone: [facility] Start: 10-06-2021 Non-patient / Non-visit LABORATORY OPERATIONS COORDINATOR-C Radha Iglesias LABORATORY OPERATIONS COORDINATOR Work Phone: [facility] Start: 09-30-2021 Non-patient / Non-visit LABORATORY OPERATIONS COORDINATOR-C Radha Iglesias LABORATORY OPERATIONS COORDINATOR Work Phone: [facility] Start: 09-25-2021 Non-patient / Non-visit LABORATORY OPERATIONS COORDINATOR-C Radha Iglesias LABORATORY OPERATIONS COORDINATOR Work Phone: [facility] Start: 09-23-2021 End: 09-23-2021 Patient encounter procedure LABORATORY OPERATIONS COORDINATOR-C Chu Calvertkimmy LABORATORY OPERATIONS COORDINATOR Work Phone: [facility] Start: 08-29-2021 End: 08-29-2021 Patient encounter procedure [facility] Start: 08-27-2021 End: 08-27-2021 Patient encounter procedure [facility] Start: 08-05-2021 End: 08-05-2021 [facility] Start: 06-25-2021 End: 06-25-2021 Patient encounter procedure CHU IGLESIAS LOT TECHNICIAN-INBOUND SALES CONSULTANT [facility] Procedures Date Procedure Procedure Detail Performing Clinician Start: 08-04-2024 Videoscory Howell s LABORATORY OPERATIONS COORDINATOR-C Work Phone: Start: 07-06-2023 Plain chest X-ray LABORATORY OPERATIONS COORDINATOR-C Chu Iglesias LABORATORY OPERATIONS COORDINATOR Work Phone: Start: 07-06-2023 Plain chest X-ray LABORATORY OPERATIONS COORDINATOR-C Chu Iglesias LABORATORY OPERATIONS COORDINATOR Work Phone: Start: 07-06-2023 Biopsy/Inj or Needle Placement LABORATORY OPERATIONS COORDINATOR-C Chu Iglesias LABORATORY OPERATIONS COORDINATOR Work Phone: Start: 07-06-2023 Plain chest X-ray CHU IGLESIAS LOT TECHNICIAN-INBOUND SALES CONSULTANT Comment on above: No pneumothorax Start: 06-08-2023 CT of chest LABORATORY OPERATIONS COORDINATOR-C Chu Iglesias LABORATORY OPERATIONS COORDINATOR Work Phone: Start: 04-05-2023 [employer] LABORATORY OPERATIONS COORDINATOR-C Chu Calverttes LABORATORY OPERATIONS COORDINATOR Work Phone: Start: 04-02-2022 [employer] LABORATORY OPERATIONS COORDINATOR-C Chu Iglesias LABORATORY OPERATIONS COORDINATOR Work Phone: Start: 02-25-2022 PET study for locali zation of tumor LABORATORY OPERATIONS COORDINATOR-C Chu Iglesias LABORATORY OPERATIONS COORDINATOR Work Phone: Start: 08-29-2021 CT of soft tissues o f neck with contrast Start: 08-27-2021 Positron emission to mography with computed tomography LABORATORY OPERATIONS COORDINATORSultana Iglesias LABORATORY OPERATIONS COORDINATOR Work Phone: Start: 08-05-2021 Microlaryngoscopy Start: 08-01-2021 End: 08-01-2021 Viral antigen assay Start: 07-16-2021 Laryngoscopy EDITH Trujillo LOT TECHNICIAN-INBOUND SALES CONSULTANT Comment on above: [facility] Blood transfusion declined R DEZ IGLESIAS LOT TECHNICIAN-INBOUND SALES CONSULTANT Operation on neck CHU MATTHEW Maguire LOT TECHNICIAN-INBOUND SALES CONSULTANT Comment on above: exp. gland of neck Viral antigen assay Plan of Treatment Date Care Activity Detail Author Start: 07-06-2023 Following clinical pathway protocol [facility] Start: 07-06-2023 Catheterization of vein [facility] Start: 07-06-2023 Oxygen therapy [facility] Start: 07-06-2023 Patient discharge [facility] Start: 07-06-2023 Vital signs measurements [facility] Start: 06-08-2023 Patient referral [facility] Work Phone: Start: 10-08-2021 Patient referral [facility] Work Phone: Start: 08-27-2021 Positron emission tomography with computed tomography [facility] Work Phone: Start: 08-05-2021 Anes esoph thyrd larynx trach & lymph neck 1yr ANESTH NECK ORGAN 1YR/> [facility] Work Phone: Start: 08-05-2021 Laryngoscopy w/biopsy microscope/telescope LARYNGOSCOPY W/BX & OP SCOPE [facility] Work Phone: Start: 08-05-2021 Patient discharge [facility] Work Phone: CT Chest WO contrast [facility] Patient Education RAD RN Dischar ge Instructions Needle Biopsy: Lung RAD RN Procedural Sedation [facility] Work Phone: Patient referral [facility] Work Phone: Radiation oncology A ND/OR radiotherapy [facility] Work Phone: Immunizations Immunization Date Immunization Notes Care Provider Fa cili 07-22-2020 SARS-CoV-2 (COVID-19 ) mRNA-1273 vaccine CHU IGLESIAS LOT TECHNICIAN-INBOUND SALES CONSULTANT [facility] 06-22-2020 SARS-CoV-2 (COVID-19 ) mRNA-1273 vaccine CHU IGLESIAS LOT TECHNICIAN-INBOUND SALES CONSULTANT [facility] 09-01-2016 tetanus toxoid, redu ciro diphtheria toxoid, and acellular pertussis vaccine, adsorbed CHU IGLESIAS LOT TECHNICIAN-INBOUND SALES CONSULTANT [facility] Payers Date Payer Category Payer Unknown [id number] 2023 Self-pay [id number] 2022 Unknown [id number] 1957 Unknown [id number] 2.16.8 [id number]. 1957 Unknown [id number] 2.16.8 40.1.268030.3.579.2. 1957 Unknown [id number] 2.16.8 40.1.157896.3.579.2. 1957 Unknown [id number] 2.16.8 40.1.922588.3.579.2. 1957 Unknown [id number] 2.16.8 40.1.114922.3.579.2. 1957 Unknown [id number] 2.16.8 40.1.144605.3.579.2. 1957 Unknown [id number] 2.16.8 40.1.015517.3.579.2.627 1957 Unknown [id number] 2.16.8 40.1.652564.3.579.2.627 Unknown [id number] 2.16.8 40.1.900545.3.579.2.462 Unknown [id number] 2.16.8 40.1.804435.3.579.2.462 Unknown [id number] 2.16.8 40.1.487173.3.579.2.462 Unknown [id number] 2.16.8 40.1.140089.3.579.2.462 Unknown [id number] 2.16.8 40.1.585634.3.579.2.462 Unknown [id number] 2.16.8 [id number] Social History Date Type Detail Facility Start: 06-25-2021 End: 11-19-2023 Tobacco smoking status Smokes tobacco daily (finding) [facility] Comment on above: Has cut way [employer] e starting tx 5-8 cigars daily Start: 1955 Sex Assigned At Male A [facility] Start: 07-29-2021 End: 07-06-2023 Tobacco smoking status AZIS Unknown if ever smoked [facility] Sexual Orientation [facility] Start: 09-07-2018 Sex Male (finding) [facility] Goals Date Patient Goal Desired Activity /State Functional Status Date Assessment Result Facility 07-06-2023 Functional status Ambulates [facility] Work Phone: Mental Status Date Assessment Result Facility 07-06-2023 Cognitive function Voice/Name [facility] Work Phone: 08-05-2021 Cognitive function Voice/Name [facility] Work Phone: Clinical Notes 06-25-2021 to 08-04-2024 Note Date & Type Note Facility 08-04-2024 Procedure note [facility] 07-14-2024 Evaluation note Diagnosis Onset Date Resolution Primary cancer of larynx acute July 14, 2024 10 :31am [facility] Work Phone: 1(278) 689-185911-11-2024 Note ORIGINAL EXAMINATION: SCREENING ULTRASOUND OF THE AORTA01/24/2024 7:58 am Ultrasound of the abdominal aorta COMPARISON: None TECHNIQUE: This report is based on interpretation of permanently recorded ultrasound images. HISTORY: ORDERING SYSTEM PROVIDED HISTORY: Reason for Exam: screening, smoker, FINDINGS: The abdominal aorta shows mild atherosclerotic changes. The aortic bifurcation and proximal common iliac arteries arenonaneurysmal also. The right proximal common iliac artery measures 1.1 x 1.2 cm. The left proximal common iliac artery measures 1.2 x 1.3 cm. AP and Transverse diameter of the proximal segment: 2.3 x 2.6 cm AP and Transverse diameter of the mid segment: 1.8 x 2.3 cm AP and Transverse diameter of the distal segment: 1.5 x 1.9 cm IMPRESSION: Atherosclerotic aorta with no evidence of abdominal aortic aneurysm. I have personally reviewed the images of this examination and agree with the resident's findings and interpretation. Interpreted by: Desmond Ansari MD Preliminary Report By: Marquita Dsouza Electronically signed By Desmond Ansari MD Dictated Date: 01/24/2024 10:00:10 AM Prelim Date: 01/24/2024 11:17:54 AM Sign Date: 01/24/2024 11:17:54 AM Ordering Provider: [facility]04-23-2024 Procedure [facility]01-22-2024 Procedure [facility]02-13-2023 Note ORIGINAL EXAMINATION: TWO XRAY VIEWS OF THE CHEST 04/27/2022 8:46 am COMPARISON: None. HISTORY: ORDERING SYSTEM PROVIDED HISTORY: Reason for Exam: r/o pneumonia, mass, cough x 10wks; current smoker. History of laryngeal carcinoma. Patient states cough for several months since he had COVID, sharp right lateral chest pain with coughing FINDINGS: Cardiomediastinal contours are normal. The lungs are hyperexpanded. No focal consolidation or pulmonary edema. Mild streaky basilar opacities on the lateral view favor subsegmental atelectasis. No pneumothorax or pleural effusion. Mild biapical pleural scarring, greater on the left. No acute osseous abnormality. Degenerative changes of the spine. IMPRESSION: No evidence of acute cardiopulmonary process. If there is further concern for mass, consider CT chest as deemed clinically warranted. Hyperexpanded lungs can be seen with emphysema/COPD. Correlate with clinical concern. I have personally reviewed the images of this examination and agree with the resident's findings and interpretation. Interpreted by: Doug Resendez DO Preliminary Report By: Sea Breen Electronically signed By Doug Resendez DO Dictated Date: 04/27/2022 2:45:40 PM Prelim Date: 04/27/2022 3:36:11 PM Sign Date: 04/27/2022 3:36:11 PM Ordering Provider: [facility]02-13-2023 Note ORIGINAL EXAMINATION: TWO XRAY VIEWS OF THE CHEST 04/27/2022 8:46 am COMPARISON: None. HISTORY: ORDERING SYSTEM PROVIDED HISTORY: Reason for Exam: r/o pneumonia, mass, cough x 10wks; current smoker. History of laryngeal carcinoma. Patient states cough for several months since he had COVID, sharp right lateral chest pain with coughing FINDINGS: Cardiomediastinal contours are normal. The lungs are hyperexpanded. No focal consolidation or pulmonary edema. Mild streaky basilar opacities on the lateral view favor subsegmental atelectasis. No pneumothorax or pleural effusion. Mild biapical pleural scarring, greater on the left. No acute osseous abnormality. Degenerative changes of the spine. IMPRESSION: No evidence of acute cardiopulmonary process. If there is further concern for mass, consider CT chest as deemed clinically warranted. Hyperexpanded lungs can be seen with emphysema/COPD. Correlate with clinical concern. I have personally reviewed the images of this examination and agree with the resident's findings and interpretation. Interpreted by: Doug Resendez DO Preliminary Report By: Sea Breen Electronically signed By Doug Resendez DO Dictated Date: 04/27/2022 2:45:40 PM Prelim Date: 04/27/2022 3:36:11 PM Sign Date: 04/27/2022 3:36:11 PM Ordering Provider: EDITH [facility]01-19-2023 [facility]04-13-2022 Evaluation + Plan note Future Scheduled Tests Radiology* XR Chest 2 Views (PA & Lateral) 06/25/21 [facility] Evaluation + Plan note Future Appointments Appointment Date:06/19/2022 04:00:00 PM Scheduled Provider:CHU IGLESIAS Location:[facility] ([place], [place]) Appointment Type:PC Wellness Annual Future Scheduled Tests Laboratory* Prostate Specific Antigen 06/18/22 * Complete Blood Count 06/18/22 * Complete Blood Count 12/18/21 * Lipid Profile 06/18/22 * Complete Metabolic Panel 06/18/22 * Complete Metabolic Panel 12/18/21 Radiology* XR Chest 2 Views (PA & Lateral) 06/25/21 [facility] Evaluation + Plan note Future Appointments Appointment Date:12/18/2022 03:30:00 PM Scheduled Provider:CHU IGLESIAS Location:[facility] ([place], [place]) Appointment Type:PC OV Future Scheduled Tests Laboratory* Complete Blood Count 12/19/22 * Complete Blood Count 12/18/21 * Complete Metabolic Panel 12/19/22 * Complete Metabolic Panel 12/18/21 Radiology* XR Chest 2 Views (PA & Lateral) 06/25/21 [facility] Evaluation + Plan note Future Appointments Appointment Date:12/18/2022 03:30:00 PM Scheduled Provider:CHU IGLESIAS Location:[facility] Appointment Type:PC OV Future Scheduled Tests Laboratory* Complete Blood Count 12/18/21 * Complete Metabolic Panel 12/18/21 [facility] Evaluation + Plan note Future Appointments Appointment Date:06/25/2023 04:00:00 PM Scheduled Provider:CHU IGLESIAS Location:[facility] ([place], [place]) Appointment Type:PC OV Future Scheduled Tests Radiology* US Abdomen and Aorta 12/18/22 [facility] Evaluation + Plan note Future Appointments Appointment Date:12/23/2023 04:30:00 PM Scheduled Provider:CHU IGELSIAS Location:[facility] ([place], [place]) Appointment Type: Wellness Annual Future Scheduled Tests Radiology* US Abdomen and Aorta 12/18/22 [facility] Evaluation + Plan note Future Appointments Appointment Date:12/24/2023 11:00:00 AM Scheduled Provider:CHU IGLESIAS Location:[facility] ([place], [place]) Appointment Type: Wellness Annual [facility] Evaluation + Plan note Future Appointments Appointment Date:06/23/2024 11:00:00 AM Scheduled Provider:CHU IGLESIAS Location:[facility] ([place], [place]) Appointment Type: OV Future Scheduled Tests Laboratory* Complete Blood Count 12/24/23 * Lipid Profile 12/24/23 * Complete Metabolic Panel 12/24/23 [facility] evaluation note* Diagnosis Onset Date Resolution Status Mass of larynx acute [facility] Work Phone: Evaluation note* Diagnosis Onset Date Resolution Status Mass of larynx acute Primary cancer of larynx acu te Primary cancer of larynx acu te Primary cancer of larynx acu te Atelectasis of right lung ac [place] Nicotine dependence with current use acute Primary cancer of larynx acu te [facility] Work Phone: Evaluation note* Diagnosis Onset Date Resolution Status Primary cancer of larynx acu te [facility] Work Phone: Evaluation note* Diagnosis Onset Date Resolution Status Primary cancer of larynx acu te Encounter for screening for malignant neoplasm of lung acute Smoker acute Solitary lung nodule acute [facility] Work Phone: Evaluation note* Diagnosis Onset Date Resolution Status Primary cancer of larynx acu te Encounter for screening for malignant neoplasm of lung acute Smoker acute Solitary lung nodule acute Mass of lower lobe of left lung acute COPD (chronic obstructive pulmonary disease) chronic Mass of lower lobe of left lung acute [facility] Work Phone: Hospital course Narrative No data available for this section [facility] Hospital Discharge instructions No data available for this section [facility] Progress note No data available for this section [facility] Reason for referral (narrative)No reason for [facility]: Chief Complaint and Reason for Visit Chief Complaint DIRECT LARYNGOSCOPY W BX Reason for Visit Mass of larynx Chief Complaint DIRECT LARYNGOSCOPY W BX THUROID ADENOCARCINOMA Reason for Visit Mass of larynx Chief Complaint DIRECT LARYNGOSCOPY W BX THUROID ADENOCARCINOMA Consult - Laryngeal CA otv otv ATELECTASIS RIGHT MIDDLE LOBE otv H&N CA Reason for Visit Mass of larynx Primary cancer of larynx Primary cancer of larynx Primary cancer of larynx Atelectasis of right lung Nicotine dependence with current use Primary cancer of larynx Chief Complaint H&N CA H&N CA - review PET CANCER OF THE LARYNX MALIGNANT NEOPLASM OF LARYNX/RX IN CHART Reason for Visit Primary cancer of la rynx Chief Complaint 6 month f/u H/N Reason for Visit Primary cancer of la rynx Chief Complaint 6 month f/u H/N LARYNX CA Reason for Visit Primary cancer of la rynx Chief Complaint LARYNX CA lung cancer screening TOBACCO DEPENDENCE Reason for Visit Primary cancer of la rynx Encounter for screening for malignant neoplasm of lung Smoker Solitary lung nodule Chief Complaint LARYNX CA lung cancer screening TOBACCO DEPENDENCE Lung Screen Biospy ABNORMAL FINDING OF LUNG FIELD /stat labs ABNORMAL FINDING OF LUNG FIELD /stat labs NICOTINE DEPENDENCE Reason for Visit Primary cancer of la rynx Encounter for screening for malignant neoplasm of lung Smoker Solitary lung nodule Mass of lower lobe of left lung COPD (chronic obstructive pulmonary disease) Mass of lower lobe of left lung Chief Complaint Admit Date 6 MONTH F/U H/N July 14, 2024 10:31a m CANCER OF LARYNX August 04, 2024 8:43a m Reason for Visit Admit Date Primary cancer of larynx July 14, 2024 1 0:31am Advance Directives No Advanced Directives Records Found Advance Directive Response Recorded Date/ Time Living Will No July 29, 2021 9 :59am Power of Hospital Chief Executive Officer No July 29, 2021 9:59am Advance Directive Response Recorded Date/ Time Living Will No October 21, 2021 12:12pm Power of Hospital Chief Executive Officer No October 21 12:12pm Advance Directive Response Recorded Date/ Time Living Will No October 21, 2021 11:12am Power of Hospital Chief Executive Officer No October 21 11:12am Advance Directive Response Recorded Date/ Time Living Will No October 21, 2021 12:12pm Do you have a Healthcare Power of Hospital Chief Executive Officer? No October 21, 2021 12:12pm Family History No Family History Records Found Relationship Condition Age at Onset Recorded Date/T ernestine father Malignant neoplasm Unknown mother Malignant neoplasm Unknown sister Malignant neoplasm Unknown Summary Purpose Additional Source Comments Care Team (unrecognized sect ion and content) Team Status: Active Member Role Status Dates Chu Iglesias LABORATORY OPERATIONS COORDINATOR, LABORATORY OPERATIONS COORDINATOR-C Primary Care Provider Active Team Status: Inactive Member Role Status Dates Chu Iglesias LABORATORY OPERATIONS COORDINATOR, LABORATORY OPERATIONS COORDINATOR-C Primary Care Provider, Referring Provider Active Dr. Yobany Villela DO Attending Provider Active Team Status: Active Member Role Status Dates Chu Iglesias LABORATORY OPERATIONS COORDINATOR, LABORATORY OPERATIONS COORDINATOR-C Primary Care Provider Active Dr. Yobany Villela DO Attending Provider, Referring Alex kwon Active Team Status: Inactive Member Role Status Dates Chu Iglesias LABORATORY OPERATIONS COORDINATOR, LABORATORY OPERATIONS COORDINATOR-C Primary Care Provider Active Dr. Yobany Villela DO Attending Provider Active Team Status: Inactive Member Role Status Dates Chu Iglesias LABORATORY OPERATIONS COORDINATOR, LABORATORY OPERATIONS COORDINATOR-C Primary Care Provider Active Dr. Shukri Pino MD Attending Provider, Referring Provider Active Team Status: Inactive Member Role Status Dates Chu Iglesias LABORATORY OPERATIONS COORDINATOR, LABORATORY OPERATIONS COORDINATOR-C Primary Care Provider, Referring Provider Active Paulette Jones LABORATORY OPERATIONS COORDINATOR, LABORATORY OPERATIONS COORDINATOR-C Attending Provider Active Team Status: Inactive Member Role Status Dates Chu Iglesias LABORATORY OPERATIONS COORDINATOR, LABORATORY OPERATIONS COORDINATOR-C Primary Care Provider Active Paulette Jones LABORATORY OPERATIONS COORDINATOR, LABORATORY OPERATIONS COORDINATOR-C Attending Provider, Referring Provider Active Team Status: Inactive Member Role Status Dates Chu Iglesias LABORATORY OPERATIONS COORDINATOR, LABORATORY OPERATIONS COORDINATOR-C Primary Care Provider, Referring Provider Active Sharon Chase LABORATORY OPERATIONS COORDINATOR, LABORATORY OPERATIONS COORDINATOR-C Attending Provider Active Team Status: Active Member Role Status Dates Chu Iglesias LABORATORY OPERATIONS COORDINATOR, LABORATORY OPERATIONS COORDINATOR-C Primary Care Provider Active Sharon Chase LABORATORY OPERATIONS COORDINATOR, LABORATORY OPERATIONS COORDINATOR-C Referring Provider, Other Pr ovider Active Jannie Nugent , ADRIENNE-C Attending Provider Active Team Status: Active Member Role Status Dates Chu Iglesias LABORATORY OPERATIONS COORDINATOR, LABORATORY OPERATIONS COORDINATOR-C Primary Care Provider Active Sharon Chase LABORATORY OPERATIONS COORDINATOR, LABORATORY OPERATIONS COORDINATOR-C Attending Provider, Referrin g Provider Active Team Status: Inactive Member Role Status Dates Chu Iglesias LABORATORY OPERATIONS COORDINATOR, LABORATORY OPERATIONS COORDINATOR-C Primary Care Provider Active Sharon Chase LABORATORY OPERATIONS COORDINATOR, LABORATORY OPERATIONS COORDINATOR-C Attending Provider, Referrin g Provider Active Team Status: Inactive Member Role Status Dates Chu Iglesias LABORATORY OPERATIONS COORDINATOR, LABORATORY OPERATIONS COORDINATOR-C Primary Care Provider Active Start: July 14, 2024 End: July 14, 2024 Chu Iglesias LABORATORY OPERATIONS COORDINATOR, LABORATORY OPERATIONS COORDINATOR-C Referring Provider Active S tart: July 14, 2024 End: July 14, 2024 Dr. Yobany Villela DO Attending Provider Active Start: July 14, 2024 End: July 14, 2024 Team Status: Inactive Member Role Status Dates Chu Iglesias LABORATORY OPERATIONS COORDINATOR, LABORATORY OPERATIONS COORDINATOR-C Primary Care Provider Active Start: August 04, 2024 End: August 04, 2024 Dr. Yobany Villela DO Attending Provider Active Start: August 04, 2024 End: August 04, 2024 Dr. Yobany Villela DO Referring Provider Active Start: August 04, 2024 End: August 04, 2024 Goals (unrecognized section and content) Goals may be documented in a n alternate section Care Team (unrecognized sect ion and content) Care Team Personnel Name: CHU IGLESIAS APRN-INBOUND SALES CONSULTANT Position: P4 Advanced Practice Nurse Member Role: Primary Care Physician Address: Address: [address] [place] [address]- [place] Name: YOBANY VILLELA DO Member Role: Oncologist Address: Address: [address] [place] [address] CAN[facility]ER CARE- RADIATION ONCOLOGIST [place] [id number] Name: MAGNO OROSCO MD Member Role: Physician Practice Market Manager Address: Address: [place] [address] [place] [address] Care Team Related Persons Name: MOON WHITING Address: Home [address] [place], [place] [id number] Address: Temporary [address] [place], [place] [id number] (unrecognized sect ion and content) No Status Records FoundNo Status Records FoundNo Status Records Found INFORMATION SOURCE (unrecogn ized section and content) DATE CREATED AUTHOR 07/01/2023 [facility] ([place]) DATE CREATED AUTHOR AUTHOR'S ORGANIZ ATION 06/29/2024 [facility] DATE CREATED AUTHOR AUTHOR'S ORGANIZ ATION 10/13/2024 [facility] FOR RECORDS PERTAINING TO PATIENTS WHO ARE OR HAVE BEEN ENROLLED IN A CHEMICAL DEPENDENCY/SUBSTANCEABUSE PROGRAM, SOME INFORMATION MAY BE OMITTED. This clinical summary was aggregated from multiple sources. Caution should be exercised in using it in the provision of clinical care. This summary normalizes information from multiple sources, and as a consequence, information in this document may materially change the coding, format and clinical context of patient data. In addition, data may be omitted in some cases. CLINICAL DECISIONS SHOULD BE BASED ON THE PRIMARY CLINICAL RECORDS. [facility] [employer], [facility]. provides no warranty or guarantee of the accuracy or completeness of information in this document.
--- OUTSIDE RECORDS SUMMARY | 2024-10-19 14:39 | XMS RPT_ITS | CCD ---
Author Organization [facility] Care Team Providers Care Tariff Inspector Name Role Phone CHU BARRETT Primary Care Physician [phone] Nelli INDUSTRIAL BOILERMAKER, INDUSTRIAL BOILERMAKER-C Chu Primary Care Provider [phone] Dr. Yobany Villela Attending Provider Dr. Ubaldo Ray Referring Provider [phone] Dr. Yobany Villela Referring Provider Nelli INDUSTRIAL BOILERMAKER, INDUSTRIAL BOILERMAKER-C Chu Referring Provider [phone] Dr. Srikanth Rea Attending Provider [phone] Nelli INDUSTRIAL BOILERMAKER, INDUSTRIAL BOILERMAKER-C Chu Primary Care Provider [phone] Nelli INDUSTRIAL BOILERMAKER, INDUSTRIAL BOILERMAKER-C Chu Referring Provider Dr. Yobany Villela Attending Provider [phone] CHU BARRETT Primary Care Physician ([phone]) Nelli INDUSTRIAL BOILERMAKER, INDUSTRIAL BOILERMAKER-C Chu Primary Care Provider [phone] Dr. Yobany Villela Attending Provider Nelli INDUSTRIAL BOILERMAKER, INDUSTRIAL BOILERMAKER-C Chu Primary Care Provider [phone] Dr. Yobany Villela Attending Provider Nelli INDUSTRIAL BOILERMAKER, INDUSTRIAL BOILERMAKER-C Chu Primary Care Provider [phone] Nelli INDUSTRIAL BOILERMAKER, INDUSTRIAL BOILERMAKER-C Chu Referring Provider [phone] Robert INDUSTRIAL BOILERMAKER, INDUSTRIAL BOILERMAKER-C Paulette Attending Provider [phone] ENRIKETES MEMBERSHIP COORDINATOR-FARO DEALER, CHU Primary Care Unavailabl e BALTES MEMBERSHIP COORDINATOR-FARO DEALER, CHU Attending Unavailabl e BALTES MEMBERSHIP COORDINATOR-FARO DEALER, CHU Primary Care Unavailabl e BALTES MEMBERSHIP COORDINATOR-FARO DEALER, CHU Attending Unavailabl e BALTES MEMBERSHIP COORDINATOR-FARO DEALER, CHU Primary Care Unavailabl e BALTES MEMBERSHIP COORDINATOR-FARO DEALER, CHU Attending Unavailabl e BALTES MEMBERSHIP COORDINATOR-FARO DEALER, CHU Primary Care Unavailabl e CHASE MEMBERSHIP COORDINATOR-FARO DEALER, SHARON Attending Unava francisco Jones INDUSTRIAL BOILERMAKER, INDUSTRIAL BOILERMAKER-C Paulette Referring Provider [phone] Nelli INDUSTRIAL BOILERMAKER, INDUSTRIAL BOILERMAKER-C Chu Referring Provider [phone] Chase INDUSTRIAL BOILERMAKER, INDUSTRIAL BOILERMAKER-C Sharon Attending Provider [phone] Salvatore INDUSTRIAL BOILERMAKER, INDUSTRIAL BOILERMAKER-C Sharon Referring Provider Salvatore INDUSTRIAL BOILERMAKER, INDUSTRIAL BOILERMAKER-C Sharon Other Provider ADRIENNE Nugent-C Jannie Bo Attending Provider BALTES MEMBERSHIP COORDINATOR-FARO DEALER, CHU Primary Care Unavailabl e BALTES MEMBERSHIP COORDINATOR-FARO DEALER, CHU Attending Unavailabl e BALTES MEMBERSHIP COORDINATOR-FARO DEALER, CHU Attending Unavailabl e BALTES MEMBERSHIP COORDINATOR-FARO DEALER, CHU Primary Care Unavailabl e BALTES MEMBERSHIP COORDINATOR-FARO DEALER, CHU Primary Care Unavailabl e BALTES MEMBERSHIP COORDINATOR-FARO DEALER, CHU Attending Unavailabl e BALTES MEMBERSHIP COORDINATOR-FARO DEALER, CHU Primary Care Unavailabl e BALTES MEMBERSHIP COORDINATOR-FARO DEALER, CHU Attending Unavailabl e Baltes INDUSTRIAL BOILERMAKER-C, Chu Primary Care Provider [phone] Baltes INDUSTRIAL BOILERMAKER-C, Chu Referring Provider Dr. Yobany Villela DO Attending Provider Dr. Yobany Villela DO Referring Provider Baltes INDUSTRIAL BOILERMAKER, Chu Primary Care Unavailable Baltes INDUSTRIAL BOILERMAKER, Chu Referring Unavailable Ronny Villelae Attending Unavailable Baltes INDUSTRIAL BOILERMAKER, Chu Primary Care Unavailable Yobany Villela Attending Unavailable Ronny Villelae Referring Unavailable Baltes INDUSTRIAL BOILERMAKER, Chu Primary Care Unavailable Baltes INDUSTRIAL BOILERMAKER, Chu Referring Unavailable Chase INDUSTRIAL BOILERMAKER, Sharon Attending Unavailable Baltes INDUSTRIAL BOILERMAKER, Chu Primary Care Unavailable Ronny Villelae Attending Unavailable Baltes INDUSTRIAL BOILERMAKER, Chu Primary Care Unavailable Margret Yobany Attending Unavailable Margret, Yobany Referring Unavailable Baltes INDUSTRIAL BOILERMAKER, Chu Primary Care Unavailable Chase INDUSTRIAL BOILERMAKER, Sharon Attending Unavailable Chase INDUSTRIAL BOILERMAKER, Sharon Referring Unavailable Allergies Allergy Classification Reported Allergen(s) Allergy Type Date of Onset Reaction(s) Facility (20 sources) Codeine; Translations: [codeine] Drug Allergy 3 passed out, nausea [facility] (1 source) Codeine Drug Allergy 5 [facility] Repository Medications Current Medications Medication Drug Class(es) Dates Sig (Normalized) Sig (Original) [id number] 200 actuat albuterol 0.09 mg/actuat metered dose [...] wheezing, # 18 gram(s), 0 Refill(s), Pharmacy: [facility]/pharmacy #[id number], Productive cough, 179, cm, 01/05/23 9:40:00 [...] tab(s), 0 Refill(s), 05/07/22 16:44:00 EST, Pharmacy: [facility]/pharmacy #[id number], 180, cm, 04/27/22 7:56:00 EST, Height, [...] 0 Refill(s), 04/10/24 12:05:00 PM EST, Pharmacy: [facility]/pharmacy #[id number], COPD exacerbation, 177.8, cm, 04/05/24 8:14:00 [...] 18, 2021 12:00am June 08, 2023 12:52pm [facility] Multi-Symptom Cold and Flu (2 sources) Start: 01-05-2023 [facility] Multi-Symptom Cold and Flu Oral, q4h, [...] Start: 06-25-2021 take 1 capsule by mo [facility] every eight hours as needed for pain [...] qDay, # 90 cap(s), 1 Refill(s), Pharmacy: [facility]/pharmacy #[id number], GERD (gastroesophageal reflux disease), 177.8, cm, [...] See Instructions, As directed by provider at [facility]., # 1 EA, 0 Refill(s), Pharmacy: [facility]/pharmacy #[id number], Colon cancer screening, 180.3, cm, 11/11/22 [...] day, # 1 packet(s), 0 Refill(s), Pharmacy: [facility]/pharmacy #[id number], 179.07, cm, 03/20/22 8:52:00 EST, Height [...] 30 mg oral tablet (10 sources) Uncompetitive Y-hfyrhq-T-aspartate Receptor Antagonist, Sigma-1 Agonist Start: 07-29-2021 End: [...] Daily, # 14 tab(s), 0 Refill(s), Pharmacy: [facility]/pharmacy #[id number], Wheezing, 179, cm, 01/05/23 9:40:00 EDT, [...] Onset: 07-16-2021 07-17-2021 Episodic Comment on above: [facility] Other lower respiratory disease (5 sources) Other nonspecific abnormal finding of lung field; Translations: [Swelling, mass, or lump in chest] Onset: 11-16-2023 06-23-2023 Episodic Other upper respiratory disease (9 sources) Dysphonia Onset: 07-16-2021 07-17-2021 Episodic Comment on above: [facility] Results Test Name Value Interpretation Reference Range Facility SP/HP.SP.Gerald 08-21-2024 SP/HP.SP.EV [facility] Speech Pathology [facility] [address] [place] [address]. [address] [place] [address] / REHABILITATION SERVICES INITIAL EVALUATION MR#: [id number] Acct: [id number] Name: MATHEW WHITING Rep #: [id number] : 1955 68 From: Nancy Conrad M.A., [facility]-CORPORATE STAFF ACCOUNTANT Referring Dr.: Dr. Yobany Villela, DO Status: RE G R Insurance: [facility] SELF PAY INSURANCE Visit History Visit Info Date of Eval: 08/21/24 Today is Visit #: 1 Resident Care Provider: BART History Attending Doctor: Referring Doctor: Reason [...] upright for 30 minutes after PO intake. CORPORATE STAFF ACCOUNTANT recommended follow up dysphagia therapy to address [...] aspiration of thin and mildly thickened liquids. CORPORATE STAFF ACCOUNTANT recommended Easy to Chew textures / Thin liquids w/ strict aspiration precautions. Due to worsening aspiration risk since previous MBSS, CORPORATE STAFF ACCOUNTANT strongly recommended return to dysphagia treatment for participation in the [place] [facility] ([facility]TP). Pt agreeable and is here today for BSE to begin OP POC. Smoking Status: Current every day smoker Pain Is pain an issue with your current prescribed condition?: No Personal Preferred language: Upper Sorbian Patient Allergies Allergies Allergies: Allergies codeine Adverse [...] Lingual Impairm (more content not included)... Normal [facility] Modified Barium Swallow Stud [facility] 08-04-2024 Modified Barium Swallow Study [facility] Speech Pathology [address] [address] Modified Barium Swallow Study MR#: [id number] Acct: [id number] Name: MATHEW WHITING Rep #: [id number] : 1955 68 From: Nancy Conrad M.A., [facility]-CORPORATE STAFF ACCOUNTANT Modified Barium Swallow Patient Information Study Date: [...] upright for 30 minutes after PO intake. CORPORATE STAFF ACCOUNTANT recommended follow up dysphagia therapy to address [...] vocal folds/not ejected Comment: post prandial aspiration [place] Thick Liquid via small single sip: cup: Result: 7= enters airways/below vocal folds/not ejected despite effort [place]/Mildly Thick Liquid 10mL: Result: 3= enters airways/above vocal folds/not ejected Comment: post prandial aspiration [place]ildly Thick Liquid 5mL: Result: 3= enters airways/above vocal folds/not ejected [place]/Mildly Thick Liquid 5mL Trial 2: Result: 3= [...] mouth (P (more content not included)... Normal [facility] Radiation Oncology Visiton 0 07-14-2024 Radiation Oncology Visit [facility] [address] [place] [address] OFFICE VISIT Date of Service: 07/14/24 1043 MR#: [id number] Acct: [id number] Name: MATHEW WHITING Rep #: [id number] : 1955 From: Yobany Margret DO Age/Sex: 68/M [place] [facility] [place]: Signed Intake Vital Signs 12/13/23 15:21 [...] investigation secon (more content not included)... Normal [facility] 06-23-2024 U Creatinine 76.4 mg/dL Normal Comment on above: Performed By: #### M ALBR #### [address] [address] U Microalb 4.0 mg/L Normal Comment on above: Performed By: #### M ALBR #### [address] [address] U Ratio Alb/Cre 5 mg/G Normal 0-30 Comment on above: Performed By: #### M ALBR #### [address] [address] CVFLURVon 04-05-2024 FLU A PCR Negative Normal Negative Comment on above: Performed By: #### C VFLURV #### [place] [address] FLU B PCR Negative Normal Negative Comment on above: Performed By: #### C VFLURV #### [place] [address] RSV PCR Negative Normal Negative Comment on above: Performed By: #### C VFLURV #### [place] [address] SARS-CoV-2 (COVID-19) RNA JEMMA+probe Ql (Unsp spec) Negative Normal Negative Comment on above: Result Comment: Resu lts [...] results. Performed By: #### C VFLURV #### [place] [address] LABORATORYOrdered By: Phuc Larios on 04-05-2024 FLUAV [...] 01/24/2024 11:17:54 AM Ordering Provider: CHU BALTES [facility] .GFRon 12-22-2023 GFR 89 ml/min/1.73sqm [facility] Comment on above: Result Comment: GFR Population [...] Performed By: #### B MP, GFR #### [address] [address] GFR Non- 73 ml/min/1.73sqm [facility] Comment on above: Result Comment: GFR Population [...] Performed By: #### B MP, GFR #### [place] [address] [place], [place] [address] BMPon 12-22-2023 BUN/Creatinine Ratio 14 ratio Normal 7-27 [facility] Comment on above: Performed By: #### B MP, GFR #### [place] [address] [place], [place] [address] Calcium [Mass/Vol] 8.9 mg/dL Normal 8.4-10.2 [facility] Comment on above: Performed By: #### B MP, GFR #### [address] [address] Chloride [Moles/Vol] 102 mmol/L Normal 98-107 [facility] Comment on above: Performed By: #### B MP, GFR #### [address] [address] CO2 [Moles/Vol] 28 mmol/L Normal 23-31 Comment on above: Performed By: #### B MP, GFR #### [address] [address] Creatinine [Mass/Vol] 1.02 mg/dL Normal 0.70-1.30 [facility] Comment on above: Result Comment: Test ing performed on Siemens Dimension EXL analyzer using a modified kinetic Samantha technique. Performed By: #### B MP, GFR #### [address] [address] Electrolyte Balance 10.0 mEq/L Normal 4.0-15.0 [facility] Comment on above: Performed By: #### B MP, GFR #### [address] [address] Glucose [Mass/Vol] 90 mg/dL Normal 80-115 [facility] Comment on above: Performed By: #### B MP, GFR #### [address] [address] Potassium [Moles/Vol] 4.3 mmol/L Normal 3.5-5.1 [facility] Comment on above: Performed By: #### B MP, GFR #### [address] [address] Sodium [Moles/Vol] 140 mmol/L Normal 136-145 [facility] Comment on above: Performed By: #### B MP, GFR #### [address] [address] Urea nitrogen [Mass/Vol] 14 mg/dL Normal 7-18 Comment on above: Performed By: #### B MP, GFR #### [facility] [address] [place], [place] [address] LABORATORYOrdered By: SYSTEM SYSTEM on 12-22-2023 Calcium [...] above: Interpretive Data: T esting performed on [employer] Dimension EXL analyzer using a modified kinetic [...] Oncology Visiton 0 12-13-2023 Radiation Oncology Visit [facility] [address] [address] OFFICE VISIT Date of Service: 12/13/23 1518 MR#: [id number] Acct: [id number] Name: MATHEW WHITING Rep #: [id number] : 1955 From: Yobany Villela DO Age/Sex: 68/M [place] [facility] [place]: Signed Intake Vital Signs 06/08/23 13:54 [...] prior defined (more content not included)... Normal [facility] Pulmonary Visit Reporton Pulmonary Visit Report [facility] [place] [address] [place] [address] [address] [place] [address] OFFICE VISIT Date of Service: 11/19/23 MR#: [id number] Acct: [id number] Name: MONIQUEMATHEW BISHOP Rep #: [id number] : 1955 Provider: JULIUS Chase Age/Sex: 67/M Location: [facility] [place].[facility] Status: Signed Assessment and Plan Assessment and [...] nodule Plan Details Follow Up: 1 Year ([facility]) HPI 4 M FU Chief Complaint: Test [...] air Intake Visit Reasons: 4 M FU Metal Can Inspector Required: No DME Vendor: n/a Accompanied by: [...] (Reviewed 11/19/23 @ 07:46 by Sharon Chase INDUSTRIAL BOILERMAKER, INDUSTRIAL BOILERMAKER-C) Hx of surgical procedure Family History Father [...] or scl (more content not included)... Normal [facility] Chest without Contraston Chest without Contrast [facility] Imaging Services [address] [place] [address] Chest without Contrast MR#: [id number] Acct: [id number] Name: MATHEW WHITING Rep #: [id number] : 1955 M 67 From: Domingo Coon MD PCP: JULIUS Guardado Status: REG CLI Study: Chest without Contrast Date of Exam: 11/09/23 Exam# [id number] Ordering Dr: Sharon Chase NP INDUSTRIAL BOILERMAKER-C [id number] INDICATION: Pulmonary nodule EXAMINATION: CT CHEST WITHOUT [...] EDT , CC: JULIUS Chase; JULIUS Iglesias [employer] Locomotive Crane Operator: Signed Normal [facility] Activated partial thrombopla stin time (aPTT) in platelet poor plasma by coagulation aOrdered By: Sharon Chase on 07-06-2023 aPTT Coag (PPP) [Time] 25.0 s 24.1-36.2 [facility] - CoagulationOrde red By: Sharon Chase on 07-06-2023 INR Coag (Bld) [Relative time] 0.9 {INR} [facility] PT Coag (PPP) [Time] 12.6 s 11.7-14.9 [facility] Platelets bldOrdered By: José Antonio Chase on 07-06-2023 Platelets (Bld) [#/Vol] 225 10*3/uL 150-450 [facility] MALBRon 06-26-2023 U Creatinine 173.7 mg/dL Normal 39.0-259.0 [facility] ([place]) Comment on above: Performed By: #### M ALBR #### [address] [address] U Microalb 693 mcg/dL Normal [facility] ([place]) Comment on above: Performed By: #### M ALBR #### [address] [address] U Ratio Alb/Cre 4 mcg/mg Normal 0-30 [facility] ([place]) Comment on above: Performed By: #### M ALBR #### [address] [address] LABORATORYOrdered By: Roverto Glover on 06-25-2023 Albumin DL <= 20 mg/L (U) [Mass/Vol] 693 mcg/dL Invalid Interpretation Code AO ADM SS Albumin/Creatinine DL <= 20 mg/L (U) [Mass ratio] 4 mcg/mg Normal 0 - 30 mcg/mg AO ADM SS Creatinine (U) [Mass/Vol] 173.7 mg/dL Normal 39.0 - 259.0 mg/dL AO ADM SS .Auto Diffon 06-24-2023 Basophil, Absolute 0.1 10 3/mcL Normal 0.0-0.2 [facility] ([place]) Comment on above: Performed By: #### L IPID, CMP, GFR, PSA, CBC, ANEU, ADIFF #### [address] [address] Basophils/100 WBC (Bld) 1.1 % Normal 0.0-2.5 [facility] ([place]) Comment on above: Performed By: #### L IPID, CMP, GFR, PSA, CBC, ANEU, ADIFF #### [address] [address] Eosinophil, Absolute 0.1 10 3/mcL Normal 0.0-0.4 [facility] ([place]) Comment on above: Performed By: #### L IPID, CMP, GFR, PSA, CBC, ANEU, ADIFF #### [address] [address] Eosinophils/100 WBC (Bld) 2.1 % Normal 0.0-7.0 [facility] ([place]) Comment on above: Performed By: #### L IPID, CMP, GFR, PSA, CBC, ANEU, ADIFF #### [address] [address] Lymphocyte, Absolute 2.0 10 3/mcL Normal 0.8-3.9 [facility] ([place]) Comment on above: Performed By: #### L IPID, CMP, GFR, PSA, CBC, ANEU, ADIFF #### [address] [address] Lymphocytes/100 WBC (Bld) 29.9 % Normal 10.0-50.0 [facility] ([place]) Comment on above: Performed By: #### L IPID, CMP, GFR, PSA, CBC, ANEU, ADIFF #### [address] [address] Monocyte, Absolute 0.6 10 3/mcL Normal 0.2-1.0 [facility] ([place]) Comment on above: Performed By: #### L IPID, CMP, GFR, PSA, CBC, ANEU, ADIFF #### [address] [address] Monocytes/100 WBC (Bld) 8.8 % Normal 1.7-13.0 [facility] ([place]) Comment on above: Performed By: #### L IPID, CMP, GFR, PSA, CBC, ANEU, ADIFF #### [address] [address] Neutrophils/100 WBC (Bld) 58.1 % Normal 37.0-80.0 [facility] ([place]) Comment on above: Performed By: #### L IPID, CMP, GFR, PSA, CBC, ANEU, ADIFF #### [address] [address] .GFRon 06-24-2023 GFR Non- 61 ml/min/1.73sqm Normal [facility] ([place]) Comment on above: Result Comment: GFR Population [...] Performed By: #### P RO, PLT #### [address] [address] GFR 74 ml/min/1.73sqm Normal [facility] ([place]) Comment on above: Result Comment: GFR Population [...] Performed By: #### P RO, PLT #### [address] [address] .NEUABSon 06-24-2023 Neutrophil, Absolute 3.8 10 3/mcL Normal 2.9-6.2 [facility] ([place]) Comment on above: Performed By: #### P RO, PLT #### [address] [address] APTTon 06-24-2023 aPTT Coag (Bld) [Time] 29.4 s Normal 25.0-35.0 [facility] ([place]) Comment on above: Result Comment: For Heparin anticoagulation therapy, the recommended therapeutic range is: 50.6-87.4 seconds. Patients on heparin therapy may have an extreme result. Heparin dose (APTT) Unknown Normal [facility] ([place]) CBCon 06-24-2023 Erythrocyte distribution width (RBC) [Ratio] 14.8 % High 11.5-14.5 [facility] ([place]) Comment on above: Performed By: #### L IPID, CMP, GFR, PSA, CBC, ANEU, ADIFF #### [address] [address] Hematocrit (Bld) [Volume fraction] 46.7 % Normal 42.0-52.0 [facility] ([place]) Comment on above: Performed By: #### L IPID, CMP, GFR, PSA, CBC, ANEU, ADIFF #### [address] [address] Hgb 16.2 G/dL Normal 14.0-18.0 [facility] ([place]) Comment on above: Performed By: #### L IPID, CMP, GFR, PSA, CBC, ANEU, ADIFF #### [address] [address] MCH (RBC) [Entitic mass] 35.3 pg High 27.0-31.2 [facility] ([place]) Comment on above: Performed By: #### L IPID, CMP, GFR, PSA, CBC, ANEU, ADIFF #### [place] [address] MCHC 34.7 G/dL Normal 31.8-35.4 [facility] (CT) Comment on above: Performed By: #### L IPID, CMP, GFR, PSA, CBC, ANEU, ADIFF #### [place] [id number] MCV (RBC) [Entitic vol] 101.8 fL High 80.0-94.0 [facility] (CT) Comment on above: Performed By: #### L IPID, CMP, GFR, PSA, CBC, ANEU, ADIFF #### [place] [id number] Platelet 199 10 3/mcL Normal 130-400 [facility] ([place]) Comment on above: Performed By: #### L IPID, CMP, GFR, PSA, CBC, ANEU, ADIFF #### [place] [address] Platelet mean volume (Bld) [Entitic vol] 7.9 fL Normal 7.4-10.4 [facility] ([place]) Comment on above: Performed By: #### L IPID, CMP, GFR, PSA, CBC, ANEU, ADIFF #### [address] [address] RBC 4.59 10 6/mcL Normal 4.04-6.13 [facility] ([place]) Comment on above: Performed By: #### L IPID, CMP, GFR, PSA, CBC, ANEU, ADIFF #### [address] [address] WBC 6.5 10 3/mcL Normal 4.6-10.8 [facility] ([place]) Comment on above: Performed By: #### L IPID, CMP, GFR, PSA, CBC, ANEU, ADIFF #### [address] [address] CMPon 06-24-2023 Albumin Level 3.7 G/dL Normal 3.4-4.8 [facility] ([place]) Comment on above: Performed By: #### P RO, PLT #### [address] [address] Albumin/Globulin [Mass ratio] 1.2 {ratio} Normal 1.1-2.5 [facility] ([place]) Comment on above: Performed By: #### P RO, PLT #### [address] [address] ALP [Catalytic activity/Vol] 80 U/L Normal 40-135 [facility] ([place]) Comment on above: Performed By: #### P RO, PLT #### [address] [address] ALT [Catalytic activity/Vol] 17 U/L Normal 16-63 [facility] ([place]) Comment on above: Performed By: #### P RO, PLT #### [address] [address] AST [Catalytic activity/Vol] 15 U/L Normal 10-40 [facility] ([place]) Comment on above: Performed By: #### P RO, PLT #### [address] [address] Bili Total 0.9 mg/dL Normal 0.2-1.0 [facility] ([place]) Comment on above: Result Comment: Use of this assay is not recommended for patients undergoing treatment with eltrombopag due to the potential for falsely elevated results. Performed By: #### P RO, PLT #### [address] [address] BUN/Creatinine Ratio 13 ratio Normal 7-27 [facility] ([place]) Comment on above: Performed By: #### P RO, PLT #### [address] [address] Calcium [Mass/Vol] 8.7 mg/dL Normal 8.4-10.2 [facility] ([place]) Comment on above: Performed By: #### P RO, PLT #### [address] [address] Chloride [Moles/Vol] 104 mmol/L Normal 98-107 [facility] ([place]) Comment on above: Performed By: #### P RO, PLT #### [address] [address] CO2 [Moles/Vol] 30 mmol/L Normal 23-31 [facility] ([place]) Comment on above: Performed By: #### P RO, PLT #### [address] [address] Creatinine [Mass/Vol] 1.19 mg/dL Normal 0.70-1.30 [facility] ([place]) Comment on above: Performed By: #### P RO, PLT #### [address] [address] Electrolyte Balance 8.0 mEq/L Normal 4.0-15.0 [facility] ([place]) Comment on above: Performed By: #### P RO, PLT #### [address] [address] Globulin 3.0 G/dL Normal [facility] ([place]) Comment on above: Performed By: #### P RO, PLT #### [address] [address] Glucose [Mass/Vol] 92 mg/dL Normal 80-115 [facility] ([place]) Comment on above: Performed By: #### P RO, PLT #### [address] [address] Potassium [Moles/Vol] 4.7 mmol/L Normal 3.5-5.1 [facility] ([place]) Comment on above: Performed By: #### P RO, PLT #### [address] [address] Sodium [Moles/Vol] 142 mmol/L Normal 136-145 [facility] ([place]) Comment on above: Performed By: #### P RO, PLT #### [address] [address] Total Protein 6.7 G/dL Normal 6.4-8.2 [facility] ([place]) Comment on above: Performed By: #### P RO, PLT #### [address] [address] Urea nitrogen [Mass/Vol] 16 mg/dL Normal 7-18 [facility] ([place]) Comment on above: Performed By: #### P RO, PLT #### [address] [address] LABORATORYOrdered By: SYSTEM SYSTEM on 06-24-2023 Albumin [...] Comment on above: Interpretive Data: Cassandra zapata [employer] (CHEST, 1992, 102:312S-25S) recommended therapeutic range for oral anticoagulant therapy is: LOW RISK: Prophylaxis of venous thrombosis INR: 2.0-3.0 Treatment of pulmonary embolism 2.0-3.0 Prevention of systemic embolism 2.0-3.0 HIGH RISK: Mechanical prosthetic valves 2.5-3.5 PT Coag (PPP) [Time] 10.4 s Normal 9.0 - 1 4.2 seconds AO [employer] SS LIPIDon 06-24-2023 Cholesterol [Mass/Vol] 211 mg/dL High 0-200 [facility] ([place]) Comment on above: Result Comment: Chol esterol Reference Interval: Less than 200 Desirable 200-239 Borderline high risk 240 and above High risk Performed By: #### P RO, PLT #### [address] [address] Cholesterol in HDL [Mass/Vol] 108 mg/dL High 40-60 [facility] ([place]) Comment on above: Performed By: #### P RO, PLT #### [address] [address] Cholesterol in LDL [Mass/Vol] 89 mg/dL Normal 0-130 [facility]) Comment on above: Performed By: #### P RO, PLT #### [address] [address] Triglyceride [Mass/Vol] 69 mg/dL Normal 0-150 [facility] ([place]) Comment on above: Result Comment: Trig lyceride Reference Interval: Less than 150 Normal 150-199 Borderline high risk 200-499 High risk 500 or higher Very high risk Performed By: #### P RO, PLT #### [address] [address] PLTon 06-24-2023 Platelet 199 10 3/mcL Normal 130-400 [facility] ([place]) Comment on above: Performed By: #### P RO, PLT #### [address] [address] PROon 06-24-2023 PT Coag (PPP) [Time] 10.4 s Normal 9.0-14.2 [facility] ([place]) Comment on above: Performed By: #### P RO, PLT #### [address] [address] PT International Ratio 0.9 Normal [facility] ([place]) Comment on above: Result Comment: The [employer] (CHEST, 1992, [id number]) recommended therapeutic range for oral anticoagulant therapy is: LOW RISK: Prophylaxis of venous thrombosis INR: 2.0-3.0 Treatment of pulmonary embolism 2.0-3.0 Prevention of systemic embolism 2.0-3.0 HIGH RISK: Mechanical prosthetic valves 2.5-3.5 Performed By: #### P RO, PLT #### [address] [address] PSAon 06-24-2023 Prostate Specific Antigen 1.19 ng/mL Normal 0.00-4.00 [facility] ([place]) Comment on above: Performed By: #### P RO, PLT #### [address] [address] .Auto Diffon 12-16-2022 Basophil, Absolute 0.1 10 3/mcL Normal 0.0-0.2 [facility] ([place]) Comment on above: Performed By: #### G FR, CMP, ADIFF, CBC, ANEU #### [address] [address] Basophils/100 WBC (Bld) 0.9 % Normal 0.0-2.5 [facility] ([place]) Comment on above: Performed By: #### G FR, CMP, ADIFF, CBC, ANEU #### [address] [address] Eosinophil, Absolute 0.1 10 3/mcL Normal 0.0-0.4 [facility] ([place]) Comment on above: Performed By: #### G FR, CMP, ADIFF, CBC, ANEU #### [address] [address] Eosinophils/100 WBC (Bld) 1.9 % Normal 0.0-7.0 [facility] ([place]) Comment on above: Performed By: #### G FR, CMP, ADIFF, CBC, ANEU #### [address] [address] Lymphocyte, Absolute 2.6 10 3/mcL Normal 0.8-3.9 [facility] ([place]) Comment on above: Performed By: #### G FR, CMP, ADIFF, CBC, ANEU #### [address] [address] Lymphocytes/100 WBC (Bld) 38.6 % Normal 10.0-50.0 [facility] ([place]) Comment on above: Performed By: #### G FR, CMP, ADIFF, CBC, ANEU #### [address] [address] Monocyte, Absolute 0.7 10 3/mcL Normal 0.2-1.0 [facility] ([place]) Comment on above: Performed By: #### G FR, CMP, ADIFF, CBC, ANEU #### [address] [address] Monocytes/100 WBC (Bld) 9.6 % Normal 1.7-13.0 [facility] ([place]) Comment on above: Performed By: #### G FR, CMP, ADIFF, CBC, ANEU #### [address] [address] Neutrophils/100 WBC (Bld) 49.0 % Normal 37.0-80.0 [facility] ([place]) Comment on above: Performed By: #### G FR, CMP, ADIFF, CBC, ANEU #### [address] [address] .GFRon 12-16-2022 GFR Non- 64 ml/min/1.73sqm Normal [facility] ([place]) Comment on above: Result Comment: GFR [...] G FR, CMP, ADIFF, CBC, ANEU #### [address] [address] GFR 78 ml/min/1.73sqm Normal [facility] ([place]) Comment on above: Result Comment: GFR Population [...] G FR, CMP, ADIFF, CBC, ANEU #### [address] [address] .NEUABSon 12-16-2022 Neutrophil, Absolute 3.4 10 3/mcL Normal 2.9-6.2 [facility] ([place]) Comment on above: Performed By: #### G FR, CMP, ADIFF, CBC, ANEU #### [address] [address] CBCon 12-16-2022 Erythrocyte distribution width (RBC) [Ratio] 14.1 % Normal 11.5-14.5 [facility] ([place]) Comment on above: Performed By: #### G FR, CMP, ADIFF, CBC, ANEU #### [address] [address] Hematocrit (Bld) [Volume fraction] 48.6 % Normal 42.0-52.0 [facility] ([place]) Comment on above: Performed By: #### G FR, CMP, ADIFF, CBC, ANEU #### [address] [address] Hgb 16.8 G/dL Normal 14.0-18.0 [facility] ([place]) Comment on above: Performed By: #### G FR, CMP, ADIFF, CBC, ANEU #### [address] [address] MCH (RBC) [Entitic mass] 36.1 pg High 27.0-31.2 [facility] ([place]) Comment on above: Performed By: #### G FR, CMP, ADIFF, CBC, ANEU #### [address] [address] MCHC 34.5 G/dL Normal 31.8-35.4 [facility] ([place]) Comment on above: Performed By: #### G FR, CMP, ADIFF, CBC, ANEU #### [address] [address] MCV (RBC) [Entitic vol] 104.7 fL High 80.0-94.0 [facility] ([place]) Comment on above: Performed By: #### G FR, CMP, ADIFF, CBC, ANEU #### [address] [address] Platelet 202 10 3/mcL Normal 130-400 [facility] ([place]) Comment on above: Performed By: #### G FR, CMP, ADIFF, CBC, ANEU #### [address] [address] Platelet mean volume (Bld) [Entitic vol] 8.0 fL Normal 7.4-10.4 [facility] ([place]) Comment on above: Performed By: #### G FR, CMP, ADIFF, CBC, ANEU #### [address] [address] RBC 4.64 10 6/mcL Normal 4.04-6.13 [facility] ([place]) Comment on above: Performed By: #### G FR, CMP, ADIFF, CBC, ANEU #### [address] [address] WBC 6.8 10 3/mcL Normal 4.6-10.8 [facility] ([place]) Comment on above: Performed By: #### G FR, CMP, ADIFF, CBC, ANEU #### [address] [address] CMPon 12-16-2022 Albumin Level 3.8 G/dL Normal 3.4-4.8 [facility] ([place]) Comment on above: Performed By: #### G FR, CMP, ADIFF, CBC, ANEU #### [address] [address] Albumin/Globulin [Mass ratio] 1.1 {ratio} Normal 1.1-2.5 [facility] ([place]) Comment on above: Performed By: #### G FR, CMP, ADIFF, CBC, ANEU #### [address] [address] ALP [Catalytic activity/Vol] 77 U/L Normal 40-135 [facility] ([place]) Comment on above: Performed By: #### G FR, CMP, ADIFF, CBC, ANEU #### [address] [address] ALT [Catalytic activity/Vol] 16 U/L Normal 16-63 [facility] ([place]) Comment on above: Performed By: #### G FR, CMP, ADIFF, CBC, ANEU #### [address] [address] AST [Catalytic activity/Vol] 15 U/L Normal 10-40 [facility] ([place]) Comment on above: Performed By: #### G FR, CMP, ADIFF, CBC, ANEU #### [address] [address] Bili Total 0.6 mg/dL Normal 0.2-1.0 [facility] ([place]) Comment on above: Result Comment: Use of this assay is not recommended for patients undergoing treatment with eltrombopag due to the potential for falsely elevated results. Performed By: #### G FR, CMP, ADIFF, CBC, ANEU #### [address] [address] BUN/Creatinine Ratio 13 ratio Normal 7-27 [facility] ([place]) Comment on above: Performed By: #### G FR, CMP, ADIFF, CBC, ANEU #### [address] [address] Calcium [Mass/Vol] 8.7 mg/dL Normal 8.4-10.2 [facility] ([place]) Comment on above: Performed By: #### G FR, CMP, ADIFF, CBC, ANEU #### [address] [address] Chloride [Moles/Vol] 102 mmol/L Normal 98-107 [facility] ([place]) Comment on above: Performed By: #### G FR, CMP, ADIFF, CBC, ANEU #### [address] [address] CO2 [Moles/Vol] 31 mmol/L Normal 23-31 [facility] [place]) Comment on above: Performed By: #### G FR, CMP, ADIFF, CBC, ANEU #### [address] [address] Creatinine [Mass/Vol] 1.14 mg/dL Normal 0.70-1.30 [facility] ([place]) Comment on above: Performed By: #### G FR, CMP, ADIFF, CBC, ANEU #### [address] [address] Electrolyte Balance 8.0 mEq/L Normal 4.0-15.0 [facility] ([place]) Comment on above: Performed By: #### G FR, CMP, ADIFF, CBC, ANEU #### [address] [address] Globulin 3.4 G/dL Normal [facility] ([place]) Comment on above: Performed By: #### G FR, CMP, ADIFF, CBC, ANEU #### [address] [address] Glucose [Mass/Vol] 96 mg/dL Normal 80-115 [facility] ([place]) Comment on above: Performed By: #### G FR, CMP, ADIFF, CBC, ANEU #### [address] [address] Potassium [Moles/Vol] 4.5 mmol/L Normal 3.5-5.1 [facility] ([place]) Comment on above: Performed By: #### G FR, CMP, ADIFF, CBC, ANEU #### [address] [address] Sodium [Moles/Vol] 141 mmol/L Normal 136-145 [facility] ([place]) Comment on above: Performed By: #### G FR, CMP, ADIFF, CBC, ANEU #### [address] [address] Total Protein 7.2 G/dL Normal 6.4-8.2 [facility] ([place]) Comment on above: Performed By: #### G FR, CMP, ADIFF, CBC, ANEU #### [address] [address] Urea nitrogen [Mass/Vol] 15 mg/dL Normal 7-18 [facility] ([place]) Comment on above: Performed By: #### G FR, CMP, ADIFF, CBC, ANEU #### [address] [address] LABORATORYOrdered By: SYSTEM SYSTEM on 12-16-2022 Albumin [...] INR Coag (Bld) [Relative time] 0.9 {INR} [facility] Work Phone: Laboratory - Coagulationon 0 10-20-2021 PT Coag (PPP) [Time] 11.6 s 11.7-14.9 [facility] Work Phone: Platelets bldon 10-20-2021 Platelets (Bld) [#/Vol] 220 10*3/uL 150-450 [facility] Work Phone: Basophil percentageon 2021 Creatinine [Mass/Vol] 1.0 mg/dL 0.70-1.30 [facility] Work Phone: No Panel Informationon 08-29 Bedside Estimated GFR (eGFR) > 60.0000 mL/min >60 [facility] Work Phone: LABORATORYOrdered By: Otilio Olivarez on [...] 10:50-0400 Body height 180.34 cm Chu Baltes [employer] Work Phone: [facility] 07-14-2024 10:50-0400 Body mass index (BMI) [Ratio] 25.6 kg/m2 Chu Baltes [employer] Work Phone: [facility] 07-14-2024 10:50-0400 Body temperature 98 [degF] Chu Baltes [employer] Work Phone: [facility] 07-14-2024 10:50-0400 Body weight 83.23 kg Chu Baltes [employer] Work Phone: [facility] 07-14-2024 10:50-0400 Diastolic blood pressure 82 mm[Hg] Chu Baltes [employer] Work Phone: [facility] 07-14-2024 10:50-0400 Heart rate 72 /min Chu Baltes [employer] Work Phone: [facility] 07-14-2024 10:50-0400 Respiratory rate 18 /min Chu Baltes [employer] Work Phone: [facility] 07-14-2024 10:50-0400 SaO2% (BldA) [Mass fraction] 94 % Chu Baltes [employer] Work Phone: [facility] 07-14-2024 10:50-0400 Systolic blood pressure 145 mm[Hg] Chu Baltes [employer] Work Phone: [facility] 07-06-2023 11:34-0400 Diastolic blood pressure 89 mm[Hg] [employer] Chu Baltes [employer] Work Phone: [facility] 07-06-2023 11:34-0400 Heart rate 67 /min [employer] Chu Baltes [employer] Work Phone: [facility] 07-06-2023 11:34-0400 Respiratory rate 16 /min [employer] Chu Baltes [employer] Work Phone: [facility] 07-06-2023 11:34-0400 SaO2% (BldA) [Mass fraction] 96 % [employer] Chu Baltes [employer] Work Phone: [facility] 07-06-2023 11:34-0400 Systolic blood pressure 133 mm[Hg] [employer] Chu Baltes [employer] Work Phone: [facility] 07-06-2023 08:10-0400 Body height 180.34 cm [employer] Chu Baltes [employer] Work Phone: [facility] 07-06-2023 08:10-0400 Body mass index (BMI) [Ratio] 24 kg/m2 [employer] Chu Baltes [employer] Work Phone: [facility] 07-06-2023 08:10-0400 Body temperature 98.1 [degF] [employer] Chu Baltes [employer] Work Phone: [facility] 07-06-2023 08:10-0400 Body weight 78.01 kg [employer] Chu Baltes [employer] Work Phone: [facility] 06-23-2023 08:18-0400 Body mass index (BMI) [Ratio] 23.8 kg/m2 [employer] Chu Baltes [employer] Work Phone: [facility] 06-23-2023 08:18-0400 Body temperature 98.6 [degF] [employer] Chu Baltes [employer] Work Phone: [facility] 06-23-2023 08:18-0400 Body weight 77.56 kg [employer] Chu Baltes [employer] Work Phone: [facility] 06-23-2023 08:18-0400 Diastolic blood pressure 71 mm[Hg] [employer] Chu Baltes [employer] Work Phone: [facility] 06-23-2023 08:18-0400 Heart rate 75 /min [employer] Chu Baltes [employer] Work Phone: [facility] 06-23-2023 08:18-0400 Respiratory rate 20 /min [employer] Chu Baltes [employer] Work Phone: [facility] 06-23-2023 08:18-0400 SaO2% (BldA) [Mass fraction] 96 % [employer] Chu Baltes [employer] Work Phone: [facility] 06-23-2023 08:18-0400 Systolic blood pressure 156 mm[Hg] [employer] Chu Baltes [employer] Work Phone: [facility] 06-08-2023 13:54-0400 Body height 180.34 cm [employer] Chu Baltes [employer] Work Phone: [facility] 06-08-2023 12:53-0400 Body mass index (BMI) [Ratio] 23.8 kg/m2 [employer] Chu Baltes [employer] Work Phone: [facility] 06-08-2023 12:53-0400 Body temperature 99.5 [degF] [employer] Chu Baltes [employer] Work Phone: [facility] 06-08-2023 12:53-0400 Body weight 77.59 kg [employer] Chu Baltes [employer] Work Phone: [facility] 06-08-2023 12:53-0400 Diastolic blood pressure 77 mm[Hg] [employer] Chu Baltes [employer] Work Phone: [facility] 06-08-2023 12:53-0400 Heart rate 70 /min [employer] Chu Baltes [employer] Work Phone: [facility] 06-08-2023 12:53-0400 Respiratory rate 18 /min [employer] Chu Baltes [employer] Work Phone: [facility] 06-08-2023 12:53-0400 SaO2% (BldA) [Mass fraction] 93 % [employer] Chu Baltes [employer] Work Phone: [facility] 06-08-2023 12:53-0400 Systolic blood pressure 136 mm[Hg] [employer] Chu Baltes [employer] Work Phone: [facility] 12-10-2022 15:37-0400 Body height 180.34 cm [employer] Chu Baltes [employer] Work Phone: [facility] 12-10-2022 15:37-0400 Body mass index (BMI) [Ratio] 26.3 kg/m2 [employer] Chu Baltes [employer] Work Phone: [facility] 12-10-2022 15:37-0400 Body temperature 99.1 [degF] [employer] Chu Baltes [employer] Work Phone: [facility] 12-10-2022 15:37-0400 Body weight 85.72 kg [employer] Chu Baltes [employer] Work Phone: [facility] 12-10-2022 15:37-0400 Diastolic blood pressure 78 mm[Hg] [employer] Chu Baltes [employer] Work Phone: [facility] 12-10-2022 15:37-0400 Heart rate 86 /min [employer] Chu Baltes [employer] Work Phone: [facility] 12-10-2022 15:37-0400 Respiratory rate 16 /min [employer] Chu Baltes [employer] Work Phone: [facility] 12-10-2022 15:37-0400 SaO2% (BldA) [Mass fraction] 95 % [employer] Chu Baltes [employer] Work Phone: [facility] 12-10-2022 15:37-0400 Systolic blood pressure 118 mm[Hg] [employer] Chu Baltes [employer] Work Phone: [facility] 03-02-2022 11:12-0500 Body height 180.34 cm [employer] Chu Baltes [employer] Work Phone: [facility] 03-02-2022 11:08-0500 Body mass index (BMI) [Ratio] 25.1 kg/m2 [employer] Chu Baltes [employer] Work Phone: [facility] 03-02-2022 11:08-0500 Body temperature 97 [degF] [employer] Chu Baltes [employer] Work Phone: [facility] 03-02-2022 11:08-0500 Body weight 81.76 kg [employer] Chu Baltes [employer] Work Phone: [facility] 03-02-2022 11:08-0500 Diastolic blood pressure 77 mm[Hg] [employer] Chu Baltes [employer] Work Phone: [facility] 03-02-2022 11:08-0500 Heart rate 76 /min [employer] Chu Baltes [employer] Work Phone: [facility] 03-02-2022 11:08-0500 Respiratory rate 16 /min [employer] Chu Baltes [employer] Work Phone: [facility] 03-02-2022 11:08-0500 SaO2% (BldA) [Mass fraction] 95 % [employer] Chu Baltes [employer] Work Phone: [facility] 03-02-2022 11:08-0500 Systolic blood pressure 124 mm[Hg] [employer] Chu Baltes [employer] Work Phone: [facility] 10-28-2021 13:38-0400 Body weight 89.61 kg [employer] Chu Baltes [employer] Work Phone: [facility] 10-22-2021 13:17-0400 Body height 180.34 cm [employer] Chu Baltes [employer] Work Phone: [facility] Work Phone: 10-22-2021 13:14-0400 Body mass index (BMI) [Ratio] 27.5 kg/m2 [employer] Chu Baltes [employer] Work Phone: [facility] Work Phone: 10-22-2021 13:14-0400 Body temperature 98.8 [degF] [employer] Chu Baltes [employer] Work Phone: [facility] Work Phone: 10-22-2021 13:14-0400 Body weight 89.61 kg [employer] Chu Baltes [employer] Work Phone: [facility] Work Phone: 10-22-2021 13:14-0400 Diastolic blood pressure 75 mm[Hg] [employer] Chu Baltes [employer] Work Phone: [facility] Work Phone: 10-22-2021 13:14-0400 Heart rate 86 /min [employer] Chu Baltes [employer] Work Phone: [facility] Work Phone: 10-22-2021 13:14-0400 Respiratory rate 16 /min [employer] Chu Baltes [employer] Work Phone: [facility] Work Phone: 10-22-2021 13:14-0400 SaO2% (BldA) [Mass fraction] 95 % [employer] Chu Baltes [employer] Work Phone: [facility] Work Phone: 10-22-2021 13:14-0400 Systolic blood pressure 128 mm[Hg] [employer] Chu Baltes [employer] Work Phone: [facility] Work Phone: 10-17-2021 13:44-0400 Body mass index (BMI) [Ratio] 27.5 kg/m2 [employer] Chu Baltes [employer] Work Phone: [facility] Work Phone: 10-17-2021 13:44-0400 Body temperature 97.5 [degF] [employer] Chu Baltes [employer] Work Phone: [facility] Work Phone: 10-17-2021 13:44-0400 Body weight 89.58 kg [employer] Chu Baltes [employer] Work Phone: [facility] Work Phone: 10-17-2021 13:44-0400 Diastolic blood pressure 81 mm[Hg] [employer] Chu Baltes [employer] Work Phone: [facility] Work Phone: 10-17-2021 13:44-0400 Heart rate 76 /min [employer] Chu Baltes [employer] Work Phone: [facility] Work Phone: 10-17-2021 13:44-0400 Respiratory rate 16 /min [employer] Chu Baltes [employer] Work Phone: [facility] Work Phone: 10-17-2021 13:44-0400 SaO2% (BldA) [Mass fraction] 96 % [employer] Chu Baltes [employer] Work Phone: [facility] Work Phone: 10-17-2021 13:44-0400 Systolic blood pressure 157 mm[Hg] [employer] Chu Baltes [employer] Work Phone: [facility] Work Phone: 10-15-2021 13:38-0400 Body mass index (BMI) [Ratio] 27.6 kg/m2 [employer] Chu Baltes [employer] Work Phone: [facility] Work Phone: 10-15-2021 13:38-0400 Body temperature 98.2 [degF] [employer] Chu Baltes [employer] Work Phone: [facility] Work Phone: 10-15-2021 13:38-0400 Body weight 89.98 kg [employer] Chu Baltes [employer] Work Phone: [facility] Work Phone: 10-15-2021 13:38-0400 Diastolic blood pressure 83 mm[Hg] [employer] Chu Baltes [employer] Work Phone: [facility] Work Phone: 10-15-2021 13:38-0400 Heart rate 76 /min [employer] Chu Baltes [employer] Work Phone: [facility] Work Phone: 10-15-2021 13:38-0400 Respiratory rate 16 /min [employer] Chu Baltes [employer] Work Phone: [facility] Work Phone: 10-15-2021 13:38-0400 SaO2% (BldA) [Mass fraction] 96 % [employer] Chu Baltes [employer] Work Phone: [facility] Work Phone: 10-15-2021 13:38-0400 Systolic blood pressure 141 mm[Hg] [employer] Chu Baltes [employer] Work Phone: [facility] Work Phone: 10-08-2021 13:44-0400 Body mass index (BMI) [Ratio] 27.2 kg/m2 [employer] Chu Baltes [employer] Work Phone: [facility] Work Phone: 10-08-2021 13:44-0400 Body temperature 98.3 [degF] [employer] Chu Baltes [employer] Work Phone: [facility] Work Phone: 10-08-2021 13:44-0400 Body weight 88.7 kg [employer] Chu Baltes [employer] Work Phone: [facility] Work Phone: 10-08-2021 13:44-0400 Diastolic blood pressure 85 mm[Hg] [employer] Chu Baltes [employer] Work Phone: [facility] Work Phone: 10-08-2021 13:44-0400 Heart rate 78 /min [employer] Chu Baltes [employer] Work Phone: [facility] Work Phone: 10-08-2021 13:44-0400 Respiratory rate 16 /min [employer] Chu Baltes [employer] Work Phone: [facility] Work Phone: 10-08-2021 13:44-0400 SaO2% (BldA) [Mass fraction] 97 % [employer] Chu Baltes [employer] BOILERMAKER Work Phone: [facility] Work Phone: 10-08-2021 13:44-0400 Systolic blood pressure 132 mm[Hg] INDUSTRIAL BOILERMAKER-C Chu Baltes INDUSTRIAL BOILERMAKER Work Phone: [facility] Work Phone: 09-23-2021 13:11-0400 Body mass index (BMI) [Ratio] 27.1 kg/m2 INDUSTRIAL BOILERMAKER-C Chu Baltes INDUSTRIAL BOILERMAKER Work Phone: [facility] Work Phone: 09-23-2021 13:11-0400 Body temperature 99 [degF] INDUSTRIAL BOILERMAKER-C Chu Baltes INDUSTRIAL BOILERMAKER Work Phone: [facility] Work Phone: 09-23-2021 13:11-0400 Body weight 88.08 kg INDUSTRIAL BOILERMAKER-C Chu Baltes INDUSTRIAL BOILERMAKER Work Phone: [facility] Work Phone: 09-23-2021 13:11-0400 Diastolic blood pressure 79 mm[Hg] INDUSTRIAL BOILERMAKER-C Chu Baltes INDUSTRIAL BOILERMAKER Work Phone: [facility] Work Phone: 09-23-2021 13:11-0400 Heart rate 78 /min INDUSTRIAL BOILERMAKER-C Chu Baltes INDUSTRIAL BOILERMAKER Work Phone: [facility] Work Phone: 09-23-2021 13:11-0400 Respiratory rate 16 /min INDUSTRIAL BOILERMAKER-C Chu Baltes INDUSTRIAL BOILERMAKER Work Phone: [facility] Work Phone: 09-23-2021 13:11-0400 SaO2% (BldA) [Mass fraction] 96 % INDUSTRIAL BOILERMAKER-C Chu Baltes INDUSTRIAL BOILERMAKER Work Phone: [facility] Work Phone: 09-23-2021 13:11-0400 Systolic blood pressure 156 mm[Hg] INDUSTRIAL BOILERMAKER-C Chu Baltes INDUSTRIAL BOILERMAKER Work Phone: [facility] Work Phone: 08-05-2021 13:45-0400 Body temperature 98.2 [degF] [facility] Work Phone: 08-05-2021 13:45-0400 Diastolic blood pressure 81 mm[Hg] [facility] Work Phone: 08-05-2021 13:45-0400 Heart rate 71 /min [facility] Work Phone: 08-05-2021 13:45-0400 Respiratory rate 16 /min [facility] Work Phone: 08-05-2021 13:45-0400 SaO2% (BldA) [Mass fraction] 95 % [facility] Work Phone: 08-05-2021 13:45-0400 Systolic blood pressure 139 mm[Hg] [facility] Work Phone: 08-05-2021 09:40-0400 Body height 180.34 cm [facility] Work Phone: 08-05-2021 09:40-0400 Body mass index (BMI) [Ratio] 26.4 kg/m2 [facility] Work Phone: 08-05-2021 09:40-0400 Body weight 86 kg [facility] Work Phone: Encounters Encounter Date Encounter Type Care Provider Facility Start: 10-11-2024 ambulatory Chu Iglesias INDUSTRIAL BOILERMAKER Facility :[facility] Start: 08-04-2024 End: 08-04-2024 ambulatory Chu Iglesias INDUSTRIAL BOILERMAKER-C Work Phone: [facility] Work Phone: Start: 08-04-2024 End: 08-04-[address] Yobany Villela DO -Radiology [facility] Work Phone: Start: 08-04-2024 End: 08-04-2024 ambulatory Chu Iglesias INDUSTRIAL BOILERMAKER Facility:[facility] Start: 07-14-2024 End: 07-14-[address] Yobany Villela DO -[facility] Work Phone: Start: 07-14-2024 End: 07-14-2024 ambulatory Chu Iglesias INDUSTRIAL BOILERMAKER Facility:[facility] Start: 06-23-2024 End: 06-27-2024 ambulatory CHU BALTES MEMBERSHIP COORDINATOR-FARO DEALER Facility:[facility] Start: 04-05-2024 End: 04-09-2024 ambulatory CHU BALTES MEMBERSHIP COORDINATOR-FARO DEALER Facility:[facility] Start: 04-05-2024 End: 04-09-2024 Outreach Lab CHU BALTES MEMBERSHIP COORDINATOR-FARO DEALER [facility] Start: 01-24-2024 End: 01-24-2024 ambulatory CHU BALTES MEMBERSHIP COORDINATOR-FARO DEALER Facility:[facility] Start: 01-24-2024 End: 01-24-2024 Patient encounter procedure CHU BALTES MEMBERSHIP COORDINATOR-FARO DEALER [facility] Start: 12-22-2023 End: 12-22-2023 ambulatory CHU BALTES MEMBERSHIP COORDINATOR-FARO DEALER Facility:[facility] Start: 12-22-2023 End: 12-22-2023 Patient encounter procedure CHU BALKIMMY MEMBERSHIP COORDINATOR-FARO DEALER [facility] Start: 12-13-2023 End: 12-13-2023 ambulatory Chu Baltes INDUSTRIAL BOILERMAKER Facility:[facility] Start: 11-19-2023 End: 11-19-2023 ambulatory Chu Baltes INDUSTRIAL BOILERMAKER Facility:[facility] Start: 11-09-2023 End: 11-09-2023 ambulatory Chu Baltes INDUSTRIAL BOILERMAKER Facility:[facility] Start: 07-09-2023 End: 07-09-2023 ambulatory INDUSTRIAL BOILERMAKER-C Chu Iglesias INDUSTRIAL BOILERMAKER Work Phone: [facility] Work Phone: Start: 07-09-2023 End: 07-09-2023 Patient encounter procedure INDUSTRIAL BOILERMAKER-C Chu Iglesias INDUSTRIAL BOILERMAKER Work Phone: [facility]-Pulmonary Services/Neurology Work Phone: Start: 07-06-2023 Non-patient / Non-visit INDUSTRIAL BOILERMAKER-C Radha Iglesias INDUSTRIAL BOILERMAKER Work Phone: [facility] Start: 07-06-2023 End: 07-06-2023 ambulatory INDUSTRIAL BOILERMAKER-C Chu Baltes INDUSTRIAL BOILERMAKER Work Phone: [facility] Work Phone: Start: 07-06-2023 End: 07-06-2023 Patient encounter procedure INDUSTRIAL BOILERMAKER-C Chu Calverttes INDUSTRIAL BOILERMAKER Work Phone: [facility] Work Phone: Start: 06-25-2023 End: 06-30-2023 ambulatory CHU BALTES MEMBERSHIP COORDINATOR-FARO DEALER Facility:[facility] Start: 06-25-2023 End: 06-29-2023 Outreach Lab CHU BALTES MEMBERSHIP COORDINATOR-FARO DEALER [facility] Start: 06-24-2023 End: 06-25-2023 ambulatory CHU BALTES MEMBERSHIP COORDINATOR-FARO DEALER Facility:[facility] Start: 06-24-2023 End: 06-24-2023 Patient encounter procedure CHU ENRIKEKIMMY MEMBERSHIP COORDINATOR-FARO DEALER [facility] Start: 06-23-2023 End: 06-23-2023 Patient encounter procedure INDUSTRIAL BOILERMAKER-C Chu Iglesias INDUSTRIAL BOILERMAKER Work Phone: [facility] Work Phone: Start: 06-08-2023 End: 06-08-2023 ambulatory INDUSTRIAL BOILERMAKER-C Chu Iglesias INDUSTRIAL BOILERMAKER Work Phone: [facility] Work Phone: Start: 06-08-2023 End: 06-08-2023 Patient encounter procedure INDUSTRIAL BOILERMAKER-C Chu Calverttes INDUSTRIAL BOILERMAKER Work Phone: [facility] Work Phone: Start: 06-08-2023 End: 06-08-2023 Patient encounter procedure INDUSTRIAL BOILERMAKER-C Chu Enriketes INDUSTRIAL BOILERMAKER Work Phone: [facility] Work Phone: Start: 04-05-2023 End: 04-05-2023 ambulatory INDUSTRIAL BOILERMAKER-C Chu Enriketes INDUSTRIAL BOILERMAKER Work Phone: [facility] Work Phone: Start: 04-05-2023 End: 04-05-2023 Patient encounter procedure INDUSTRIAL BOILERMAKER-C Chu Iglesias INDUSTRIAL BOILERMAKER Work Phone: [facility]-Radiology, [facility] Work Phone: Start: 12-16-2022 End: 12-17-2022 ambulatory CHU IGLESIAS MEMBERSHIP COORDINATOR-FARO DEALER Facility:[facility] Start: 12-16-2022 End: 12-16-2022 Patient encounter procedure CHU IGLESIAS MEMBERSHIP COORDINATOR-FARO DEALER [facility] Start: 12-16-2022 End: 12-16-2022 Well adult monitoring check done CHU IGLESIAS MEMBERSHIP COORDINATOR-FARO DEALER [facility] Start: 12-10-2022 End: 12-10-2022 Patient encounter procedure INDUSTRIAL BOILERMAKER-C Chu Iglesias INDUSTRIAL BOILERMAKER Work Phone: [facility] Work Phone: Start: 06-19-2022 End: 06-23-2022 Outreach Lab CHU CALVERTKIMMY MEMBERSHIP COORDINATOR-FARO DEALER [facility] Start: 04-27-2022 End: 04-27-2022 Patient encounter procedure EDITH MAST MEMBERSHIP COORDINATOR-FARO DEALER [facility] Start: 04-07-2022 Registered Recurring INDUSTRIAL BOILERMAKER-C Chu Iglesias INDUSTRIAL BOILERMAKER Work Phone: [facility]-Speech Therapy Start: 04-02-2022 End: 04-02-2022 ambulatory INDUSTRIAL BOILERMAKER-C Chu Iglesias INDUSTRIAL BOILERMAKER Work Phone: [facility] Work Phone: Start: 04-02-2022 End: 04-02-2022 Patient encounter procedure INDUSTRIAL BOILERMAKER-C Chu Iglesias INDUSTRIAL BOILERMAKER [facility] Start: 03-02-2022 End: 03-02-2022 Patient encounter procedure INDUSTRIAL BOILERMAKER-Jeet Iglesias INDUSTRIAL BOILERMAKER Work Phone: [facility] Start: 02-25-2022 Registered Recurring INDUSTRIAL BOILERMAKER-Jeet Iglesias INDUSTRIAL BOILERMAKER Work Phone: [facility] Oncology Start: 10-23-2021 Registered Recurring INDUSTRIAL BOILERMAKER-C Chu Iglesias INDUSTRIAL BOILERMAKER [facility] Start: 10-22-2021 End: 10-22-2021 Patient encounter procedure INDUSTRIAL BOILERMAKER-Jeet Iglesias INDUSTRIAL BOILERMAKER Work Phone: [facility] Start: 10-20-2021 End: 10-20-2021 Patient encounter procedure INDUSTRIAL BOILERMAKER-C Chu Iglesias INDUSTRIAL BOILERMAKER Work Phone: [facility]-Laboratory, OP Pavilion Start: 10-17-2021 End: 10-17-2021 Patient encounter procedure INDUSTRIAL BOILERMAKER-C Chu Iglesias INDUSTRIAL BOILERMAKER [facility] Start: 10-15-2021 End: 10-15-2021 Patient encounter procedure INDUSTRIAL BOILERMAKER-C Chu Iglesias INDUSTRIAL BOILERMAKER Work Phone: [facility] Start: 10-08-2021 End: 10-08-2021 Patient encounter procedure INDUSTRIAL BOILERMAKER-Jeet Iglesias INDUSTRIAL BOILERMAKER Work Phone: [facility] Start: 10-06-2021 Non-patient / Non-visit INDUSTRIAL BOILERMAKER-C Radha Iglesias INDUSTRIAL BOILERMAKER Work Phone: [facility] Start: 09-30-2021 Non-patient / Non-visit INDUSTRIAL BOILERMAKER-C Radha Iglesias INDUSTRIAL BOILERMAKER Work Phone: [facility] Start: 09-25-2021 Non-patient / Non-visit INDUSTRIAL BOILERMAKER-C Radha Iglesias INDUSTRIAL BOILERMAKER Work Phone: [facility] Start: 09-23-2021 End: 09-23-2021 Patient encounter procedure INDUSTRIAL BOILERMAKER-C Chu Calvertkimmy INDUSTRIAL BOILERMAKER Work Phone: [facility] Start: 08-29-2021 End: 08-29-2021 Patient encounter procedure [facility] Start: 08-27-2021 End: 08-27-2021 Patient encounter procedure [facility] Start: 08-05-2021 End: 08-05-2021 [facility] Start: 06-25-2021 End: 06-25-2021 Patient encounter procedure CHU IGLESIAS MEMBERSHIP COORDINATOR-FARO DEALER [facility] Procedures Date Procedure Procedure Detail Performing Clinician Start: 08-04-2024 Videoscory Howell s INDUSTRIAL BOILERMAKER-C Work Phone: Start: 07-06-2023 Plain chest X-ray INDUSTRIAL BOILERMAKER-C Chu Iglesias INDUSTRIAL BOILERMAKER Work Phone: Start: 07-06-2023 Plain chest X-ray INDUSTRIAL BOILERMAKER-C Chu Iglesias INDUSTRIAL BOILERMAKER Work Phone: Start: 07-06-2023 Biopsy/Inj or Needle Placement INDUSTRIAL BOILERMAKER-C Chu Iglesias INDUSTRIAL BOILERMAKER Work Phone: Start: 07-06-2023 Plain chest X-ray CHU IGLESIAS MEMBERSHIP COORDINATOR-FARO DEALER Comment on above: No pneumothorax Start: 06-08-2023 CT of chest INDUSTRIAL BOILERMAKER-C Chu Iglesias INDUSTRIAL BOILERMAKER Work Phone: Start: 04-05-2023 Videoswallow INDUSTRIAL BOILERMAKER-C Chu Calverttes INDUSTRIAL BOILERMAKER Work Phone: Start: 04-02-2022 Videoswallow INDUSTRIAL BOILERMAKER-C Chu Iglesias INDUSTRIAL BOILERMAKER Work Phone: Start: 02-25-2022 PET study for locali zation of tumor INDUSTRIAL BOILERMAKER-C Chu Iglesias INDUSTRIAL BOILERMAKER Work Phone: Start: 08-29-2021 CT of soft tissues o f neck with contrast Start: 08-27-2021 Positron emission to mography with computed tomography INDUSTRIAL BOILERMAKERSultana Iglesias INDUSTRIAL BOILERMAKER Work Phone: Start: 08-05-2021 Microlaryngoscopy Start: 08-01-2021 End: 08-01-2021 Viral antigen assay Start: 07-16-2021 Laryngoscopy EDITH Trujillo MEMBERSHIP COORDINATOR-FARO DEALER Comment on above: [facility] Blood transfusion declined R DEZ IGLESIAS MEMBERSHIP COORDINATOR-FARO DEALER Operation on neck CHU MATTHEW Maguire MEMBERSHIP COORDINATOR-FARO DEALER Comment on above: exp. gland of neck Viral antigen assay Plan of Treatment Date Care Activity Detail Author Start: 07-06-2023 Following clinical pathway protocol [facility] Start: 07-06-2023 Catheterization of vein [facility] Start: 07-06-2023 Oxygen therapy [facility] Start: 07-06-2023 Patient discharge [facility] Start: 07-06-2023 Vital signs measurements [facility] Start: 06-08-2023 Patient referral [facility] Work Phone: Start: 10-08-2021 Patient referral [facility] Work Phone: Start: 08-27-2021 Positron emission tomography with computed tomography [facility] Work Phone: Start: 08-05-2021 Anes esoph thyrd larynx trach & lymph neck 1yr ANESTH NECK ORGAN 1YR/> [facility] Work Phone: Start: 08-05-2021 Laryngoscopy w/biopsy microscope/telescope LARYNGOSCOPY W/BX & OP SCOPE [facility] Work Phone: Start: 08-05-2021 Patient discharge [facility] Work Phone: CT Chest WO contrast [facility] Patient Education RAD RN Dischar ge Instructions Needle Biopsy: Lung RAD RN Procedural Sedation [facility] Work Phone: Patient referral [facility] Work Phone: Radiation oncology A ND/OR radiotherapy [facility] Work Phone: Immunizations Immunization Date Immunization Notes Care Provider Fa cili 07-22-2020 SARS-CoV-2 (COVID-19 ) mRNA-1273 vaccine CHU IGLESIAS MEMBERSHIP COORDINATOR-FARO DEALER [facility] 06-22-2020 SARS-CoV-2 (COVID-19 ) mRNA-1273 vaccine CHU IGLESIAS MEMBERSHIP COORDINATOR-FARO DEALER [facility] 09-01-2016 tetanus toxoid, redu ciro diphtheria toxoid, and acellular pertussis vaccine, adsorbed CHU IGLESIAS MEMBERSHIP COORDINATOR-FARO DEALER [facility] Payers Date Payer Category Payer Unknown [id number] 2023 Self-pay [id number] 2022 Unknown [id number] 1957 Unknown [id number] 2.16.8 [id number]. 1957 Unknown [id number] 2.16.8 [id number]. 1957 Unknown [id number] 2.16.8 [id number]. 1957 Unknown [id number] 2.16.8 [id number]. 1957 Unknown [id number] 2.16.8 [id number]. 1957 Unknown [id number] 2.16.8 [id number]. 1957 Unknown [id number] 2.16.8 [id number] 1957 Unknown [id number] 2.16.8 [id number] Unknown [id number] 2.16.8 [id number] Unknown [id number] 2.16.8 [id number] Unknown [id number] 2.16.8 [id number] Unknown [id number] 2.16.8 [id number] Unknown [id number] 2.16.8 [id number] Unknown [id number] 2.16.8 [id number] Social History Date Type Detail Facility Start: 06-25-2021 End: 11-19-2023 Tobacco smoking status Smokes tobacco daily (finding) [facility] Comment on above: Has cut way downsinc e starting tx 5-8 cigars daily Start: 1955 Sex Assigned At Male A [facility] Start: 07-29-2021 End: 07-06-2023 Tobacco smoking status OKIS Unknown if ever smoked [facility] Sexual Orientation [facility] Start: 09-07-2018 Sex Male (finding) [facility] Goals Date Patient Goal Desired Activity /State Functional Status Date Assessment Result Facility 07-06-2023 Functional status Ambulates [facility] Work Phone: Mental Status Date Assessment Result Facility 07-06-2023 Cognitive function Voice/Name [facility] Work Phone: 08-05-2021 Cognitive function Voice/Name [facility] Work Phone: Clinical Notes 06-25-2021 to 08-04-2024 Note Date & Type Note Facility 08-04-2024 Procedure note [facility] 07-14-2024 Evaluation note Diagnosis Onset Date Resolution Primary cancer of larynx acute July 14, 2024 10 :31am [facility] Work Phone: 1(165) 203-483811-11-2024 Note ORIGINAL EXAMINATION: SCREENING ULTRASOUND OF THE [...] Sign Date: 01/24/2024 11:17:54 AM Ordering Provider: [facility]04-23-2024 Procedure [facility]01-22-2024 Procedure [facility]02-13-2023 Note ORIGINAL EXAMINATION: TWO XRAY VIEWS [...] Sign Date: 04/27/2022 3:36:11 PM Ordering Provider: [facility]02-13-2023 Note ORIGINAL EXAMINATION: TWO XRAY [...] Date: 04/27/2022 3:36:11 PM Ordering Provider: [facility]01-19-2023 [facility]04-13-2022 Evaluation + Plan note Future Scheduled Tests Radiology* XR Chest 2 Views (PA & Lateral) 06/25/21 [facility] Evaluation + Plan note Future Appointments Appointment Date:06/19/2022 04:00:00 PM Scheduled Provider:CHU IGLESIAS Location:[facility] Appointment Type:PC Wellness Annual Future Scheduled Tests Laboratory* Prostate Specific Antigen 06/18/22 * Complete Blood Count 06/18/22 * Complete Blood Count 12/18/21 * Lipid Profile 06/18/22 * Complete Metabolic Panel 06/18/22 * Complete Metabolic Panel 12/18/21 Radiology* XR Chest 2 Views (PA & Lateral) 06/25/21 [facility] Evaluation + Plan note Future Appointments Appointment Date:12/18/2022 03:30:00 PM Scheduled Provider:CHU IGLESIAS Location:[facility] Appointment Type:PC OV Future Scheduled Tests Laboratory* Complete Blood Count 12/19/22 * Complete Blood Count 12/18/21 * Complete Metabolic Panel 12/19/22 * Complete Metabolic Panel 12/18/21 Radiology* XR Chest 2 Views (PA & Lateral) 06/25/21 [facility] Evaluation + Plan note Future Appointments Appointment Date:12/18/2022 03:30:00 PM Scheduled Provider:CHU IGLESIAS Location:[facility] Appointment Type:PC OV Future Scheduled Tests Laboratory* Complete Blood Count 12/18/21 * Complete Metabolic Panel 12/18/21 [facility] Evaluation + Plan note Future Appointments Appointment Date:06/25/2023 04:00:00 PM Scheduled Provider:CHU IGLESIAS Location:[facility] Appointment Type:PC OV Future Scheduled Tests Radiology* US Abdomen and Aorta 12/18/22 [facility] Evaluation + Plan note Future Appointments Appointment Date:12/23/2023 04:30:00 PM Scheduled Provider:CHU IGLESIAS Location:[facility] Appointment Type: Wellness Annual Future Scheduled Tests Radiology* US Abdomen and Aorta 12/18/22 [facility] Evaluation + Plan note Future Appointments Appointment Date:12/24/2023 11:00:00 AM Scheduled Provider:CHU IGLESIAS Location:[facility] Appointment Type: Wellness Annual [facility] Evaluation + Plan note Future Appointments Appointment Date:06/23/2024 11:00:00 AM Scheduled Provider:CHU IGLESIAS Location:[facility] Appointment Type: OV Future Scheduled Tests Laboratory* Complete Blood Count 12/24/23 * Lipid Profile 12/24/23 * Complete Metabolic Panel 12/24/23 [facility] evaluation note* Diagnosis Onset Date Resolution Status Mass of larynx acute [facility] Work Phone: Evaluation note* Diagnosis Onset Date Resolution Status Mass of larynx acute Primary cancer of larynx acu te Primary cancer of larynx acu te Primary cancer of larynx acu te Atelectasis of right lung ac [place] Nicotine dependence with current use acute Primary cancer of larynx acu te [facility] Work Phone: Evaluation note* Diagnosis Onset Date Resolution Status Primary cancer of larynx acu te [facility] Work Phone: Evaluation note* Diagnosis Onset Date Resolution Status Primary cancer of larynx acu te Encounter for screening for malignant neoplasm of lung acute Smoker acute Solitary lung nodule acute [facility] Work Phone: Evaluation note* Diagnosis Onset Date Resolution Status Primary cancer of larynx acu te Encounter for screening for malignant neoplasm of lung acute Smoker acute Solitary lung nodule acute Mass of lower lobe of left lung acute COPD (chronic obstructive pulmonary disease) chronic Mass of lower lobe of left lung acute [facility] Work Phone: Hospital course Narrative No data available for this section [facility] Hospital Discharge instructions No data available for this section [facility] Progress note No data available for this section [facility] Reason for referral (narrative)[facility] for [facility]: Chief Complaint and Reason for [...] July 29, 2021 9 :59am Power of Form Worker No July 29, 2021 9:59am Advance Directive Response Recorded Date/ Time Living Will No October 21, 2021 12:12pm Power of Form Worker No October 21 12:12pm Advance Directive Response Recorded Date/ Time Living Will No October 21, 2021 11:12am Power of Form Worker No October 21 11:12am Advance Directive Response Recorded Date/ Time Living Will No October 21, 2021 12:12pm Do you have a Healthcare Power of Form Worker? No October 21, 2021 12:12pm Family History No Family History Records Found Relationship Condition Age at Onset Recorded Date/T ernestine father Malignant neoplasm Unknown mother Malignant neoplasm Unknown sister Malignant neoplasm Unknown Summary Purpose Additional Source Comments Care Team (unrecognized sect ion and content) Team Status: Active Member Role Status Dates Chu Iglesias INDUSTRIAL BOILERMAKER, INDUSTRIAL BOILERMAKER-C Primary Care Provider Active Team Status: Inactive Member Role Status Dates Chu Iglesias INDUSTRIAL BOILERMAKER, INDUSTRIAL BOILERMAKER-C Primary Care Provider, Referring Provider Active Dr. Yobany Villela DO Attending Provider Active Team Status: Active Member Role Status Dates Chu Iglesias INDUSTRIAL BOILERMAKER, INDUSTRIAL BOILERMAKER-C Primary Care Provider Active Dr. Yobany Villela DO Attending Provider, Referring Alex kwon Active Team Status: Inactive Member Role Status Dates Chu Iglesias INDUSTRIAL BOILERMAKER, INDUSTRIAL BOILERMAKER-C Primary Care Provider Active Dr. Yobany Villela DO Attending Provider Active Team Status: Inactive Member Role Status Dates Chu Iglesias INDUSTRIAL BOILERMAKER, INDUSTRIAL BOILERMAKER-C Primary Care Provider Active Dr. Shukri Pino MD Attending Provider, Referring Provider Active Team Status: Inactive Member Role Status Dates Chu Iglesias INDUSTRIAL BOILERMAKER, INDUSTRIAL BOILERMAKER-C Primary Care Provider, Referring Provider Active Paulette Jones INDUSTRIAL BOILERMAKER, INDUSTRIAL BOILERMAKER-C Attending Provider Active Team Status: Inactive Member Role Status Dates Chu Iglesias INDUSTRIAL BOILERMAKER, INDUSTRIAL BOILERMAKER-C Primary Care Provider Active Paulette Jones INDUSTRIAL BOILERMAKER, INDUSTRIAL BOILERMAKER-C Attending Provider, Referring Provider Active Team Status: Inactive Member Role Status Dates Chu Iglesias INDUSTRIAL BOILERMAKER, INDUSTRIAL BOILERMAKER-C Primary Care Provider, Referring Provider Active Sharon Chase INDUSTRIAL BOILERMAKER, INDUSTRIAL BOILERMAKER-C Attending Provider Active Team Status: Active Member Role Status Dates Chu Iglesias INDUSTRIAL BOILERMAKER, INDUSTRIAL BOILERMAKER-C Primary Care Provider Active Sharon Chase INDUSTRIAL BOILERMAKER, INDUSTRIAL BOILERMAKER-C Referring Provider, Other Pr ovider Active Jannie Nugent , ADRIENNE-C Attending Provider Active Team Status: Active Member Role Status Dates Chu Iglesias INDUSTRIAL BOILERMAKER, INDUSTRIAL BOILERMAKER-C Primary Care Provider Active Sharon Chase INDUSTRIAL BOILERMAKER, INDUSTRIAL BOILERMAKER-C Attending Provider, Referrin g Provider Active Team Status: Inactive Member Role Status Dates Chu Iglesias INDUSTRIAL BOILERMAKER, INDUSTRIAL BOILERMAKER-C Primary Care Provider Active Sharon Chase INDUSTRIAL BOILERMAKER, INDUSTRIAL BOILERMAKER-C Attending Provider, Referrin g Provider Active Team Status: Inactive Member Role Status Dates Chu Iglesias INDUSTRIAL BOILERMAKER, INDUSTRIAL BOILERMAKER-C Primary Care Provider Active Start: July 14, 2024 End: July 14, 2024 Chu Iglesias INDUSTRIAL BOILERMAKER, INDUSTRIAL BOILERMAKER-C Referring Provider Active S tart: July 14, 2024 End: July 14, 2024 Dr. Yobany Villela DO Attending Provider Active Start: July 14, 2024 End: July 14, 2024 Team Status: Inactive Member Role Status Dates Chu Iglesias INDUSTRIAL BOILERMAKER, INDUSTRIAL BOILERMAKER-C Primary Care Provider Active Start: August 04, [...] content) Care Team Personnel Name: CHU IGLESIAS APRN-FARO DEALER Position: P4 Advanced Practice Nurse Member Role: Primary Care Physician Address: Address: [address] [place] [address]- [place] Name: YOBANY VILLELA DO Member Role: Oncologist Address: Address: [address] [place] [address] CANCER CARE- RADIATION ONCOLOGIST [place] [id number] Name: MAGNO OROSCO MD Member Role: Hatchery Man Address: Address: [address] [address] [place] [address] Care Team Related Persons Name: MOON WHITING Address: Home [address] [place], [place] [id number] Address: Temporary [address] [place], [place] [id number] (unrecognized sect ion and content) No Status Records FoundNo Status Records FoundNo Status Records Found INFORMATION SOURCE (unrecogn ized section and content) DATE CREATED AUTHOR 07/01/2023 [facility] ([place]) DATE CREATED AUTHOR AUTHOR'S ORGANIZ ATION 06/29/2024 DATE CREATED AUTHOR AUTHOR'S ORGANIZ ATION 10/13/2024 [facility] FOR RECORDS PERTAINING TO PATIENTS WHO ARE [...] BE BASED ON THE PRIMARY CLINICAL RECORDS. [facility] [employer], [facility]. provides no warranty or guarantee of the accuracy or completeness of information in this document.
--- NOTE | 2024-10-19 15:08 | ST.MBS ---
Modified Barium Swallow Patient Information Study Date: 10/19/24 Study Time: 13:00 Direct Billable Minutes: 120 Total Minutes procedure & reportin Diagnosis: Primary cancer of the larynx C32.9 Referring Physician: Sachin Oswald Reason for Referral: Assess swallow function, assess risk for aspiration, and determine recommendations for least restrictive diet textures and compensatory strategies to improve safety of swallow. 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 From 10/06/2021 ? 11/12/2021 he received definitive radiation therapy to the larynx in 28 fractions. Dysphagia Hx: He followed with speech therapy to manage dysphagia during radiation treatment and has attended annual follow up MBSS to assess risk for worsening dysphagia s/p radiation. PNA 2X February 2023-March 2023. MBSS 04/05/2023 revealed mild-moderate pharyngeal dysphagia and recommended Soft and Bite Size Textures and Thin Liquids w/ the following Compensatory Strategies: Small Bites, Small Sips, Slow Rate, Multiple Swallows (Patient completes as needed), Alternate bites/solids and sips/liquids, Sitting upright and Remain sitting upright for 30 minutes after PO intake. CERTIFIED ORTHOTIC FITTER recommended follow up dysphagia therapy to address worsening swallow function, but the patient did not wish to return to at the time. He still has ~25% of his taste after having COVID-19 twice. He continues to be hoarse. Severe xerostomia upon waking but no issues w/ dry mouth during the day. No odynophagia. He reports having to chew foods thoroughly and take his time. The only food he avoids currently is rice. Pt recently had yearly MBSS to monitor swallow function s/p radiation treatment. It revealed again Mild-moderate oropharyngeal dysphagia w/ aspiration of thin and mildly thickened liquids. CERTIFIED ORTHOTIC FITTER recommended Easy to Chew textures / Thin liquids w/ strict aspiration precautions. Due to worsening aspiration risk since previous MBSS, CERTIFIED ORTHOTIC FITTER strongly recommended return to dysphagia treatment for participation in the [facility] ([facility]). Pt agreeable and participated in 15 sessions of MDTP w/ CERTIFIED ORTHOTIC FITTER and is now recommended for repeat MBSS to re-assess swallow function and aspiration risk. Current Diet Ordered: Regular textures (no rice) / Thin liquids Dentition: Natural Teeth and Missing Teeth Mental Status: WNL Respiratory Status: Oxygenating on Room Air Penetration-Aspiration Scale Penetration-Aspiration Scale: OBJECTIVE ASSESSMENT OF SWALLOW FUNCTION (QUANTITATIVE ? PER TRIAL): PENETRATION / ASPIRATION SCALE (DIAZ): 1 = does not enter airway 2 = enters airway/above vocal folds/ejected 3 = enters airway/above vocal folds/not ejected 4 = enters airway/contacts vocal folds/ejected 5 = enters airway/contacts vocal folds/not ejected 6 = enters airway/below vocal folds/ejected 7 = enters airway/below vocal folds/not ejected despite effort 8 = enters airway/below vocal folds/no effort VIDEOFLOROSCOPIC SCALE SCORE (DIAZ): Grade I = aspiration of material that has penetrated into the laryngeal vestibule, intact cough reflex Grade II = aspiration < 10 % of the bolus, intact cough reflex Grade III = aspiration of < 10 % of the bolus, reduced cough reflex or aspiration of > 10 % of the bolus, intact cough reflex Grade IV = aspiration of > 10 % of the bolus, reduced cough reflex Oral Phase Labial Seal: No Labial Escape Tongue Control During Bolus Hold: Escape to lateral buccal cavity/floor of mouth Bolus Preparation/Mastication: Timely and efficient chewing and mashing Bolus Transport/Lingual Motion: Delayed initiation of tongue motion Oral Residue: Trace residue lining oral structures Pharyngeal Phase Initiation of Pharyngeal Swallow: Bolus head at posterior laryngeal surgace of epiglottis Soft Palate Elevation: No bolus between soft palate and pharyngeal wall Laryngeal Elevation: Partial superior movement thyroid cart/partial apprx aryt-epig petiole Anterior Hyoid Excursion: Partial anterior movement Epiglottic Movement: Partial inversion Laryngeal Vestibule Closure at Height of Swallow: Incomplete; narrow column of air/contrast in laryngeal vestibule Pharyngeal Stripping Wave: Present - diminished Pharyngoesophageal Segment Opening: Minimal distension and minimal duration; marked obstruction of flow Tongue Base Retraction: Wide column of contrast between tongue base & post. pharyngeal wall Pharyngeal Residue: Majority of contrast within or on pharyngeal structures (50% of cookie remained in the pharynx during the swallow, >50% after the swallow d/t retrograde flow through the UES) Esophageal Phase Esophageal Clearance: Esophageal retention w/ retrograde flow through pharyngoesophageal seg Treatment Strategies Effects of treatment strategies attemped:: Cough and re-swallow = somewhat effective. Chin tuck = not effective. Cued breath hold and swallow (modified supraglottic) = not effective. Diagnosis/Impression Diagnosis: Mild-moderate pharyngeal dysphagia R13.13 .: Image 1. Left image is pharyngeal clearance of 5mL teaspoon (initial swallow) on today's MBSS as compared to pharyngeal clearance of 5mL teaspoon on 08/04/2024 (Right image). Image 2. Left image is pharyngeal clearance of 10mL teaspoon (initial swallow) on today's MBSS as compared to pharyngeal clearance of 10mL teaspoon on 08/04/2024 (Right image). Image 3. Left image is pharyngeal clearance of teaspoon of pudding (initial swallow) on today's MBSS as compared to pharyngeal clearance of teaspoon of pudding on 08/04/2024 (Right image). MBS Impressions: Oral phase is grossly WNL. The pharyngeal phase is primarily marked by... -Decreased pharyngeal motility due to decreased TB retraction, pharyngeal stripping wave, and UES opening/duration of opening. Improved pharyngeal clearance of liquids as compared to previous study. Improved pharyngeal clearance of pudding as compared to previous study. Improved pharyngeal clearance of cookie through the vallecula as compared to previous study; however, increased retention in the UES w/ retrograde flow to the pyriform sinuses. With multiple, effortful swallows, the patient did mostly clear cookie through the UES. -Aspiration of thin liquids via 10cc cup, mildly thick liquids via cup (SILENT post prandial aspiration of mildly thick liquids), and aspiration of thin liquids via cup w/ use of modified supraglottic swallow and chin tuck. Reflexive throat clearing throughout the MBSS in response to laryngeal penetration of liquids and aspiration of thin liquids via 10cc cup. Reflexive cough after aspiration of thin liquids via cup w/ use of modified supraglottic swallow and chin tuck. The esophageal phase is primarily marked by... -Significant esophageal retention of cookie in the UES w/ retrograde flow to the pyriform sinuses. Recommendations Diet: Regular Textures and Thin Liquids Comment: Frequent oral care Compensatory Strategies: Small Bites (Chew thoroughly), Small Sips (Cough and re-swallow as needed if sensing tickle in throat), Slow Rate, Multiple Swallows (hard swallows), Sitting upright and Remain sitting upright for 30 minutes after PO intake Recommend Repeat Modified Barium Swallow: Yes (6-12months) Need for Skilled Speech Therapy Services: Yes Comment: -Consider additional participation in MDTP if pt is agreeable. -If pt is not interested in additional intensive dysphagia rehabilitation, will recommend oropharyngeal home exercise program (Effortful swallows w/ food, Chetna, Sera, Shaker). Recommended Referrals: GI Consult (Increased retention of cookie in the UES as compared to previous study) Education Completed: 1. Described result of evaluation. Status Active ST Patient: Active Contact Information [facility] Speech Therapy:: Nancy Conrad M.A. CCC-CERTIFIED ORTHOTIC FITTER? Speech-Language Pathologist?? [facility] [address] [place] [address]? [email or web address]?? [phone]
--- NOTE | 2024-10-19 15:08 | ST.MBS ---
Modified Barium Swallow Patient Information Study Date: 10/19/24 Study Time: 13:00 Direct Billable Minutes: 120 Total Minutes procedure & reportin Diagnosis: Primary cancer of the larynx C32.9 Referring Physician: Sachin Oswald Reason for Referral: Assess swallow function, assess risk for aspiration, and determine recommendations for least restrictive diet textures and compensatory strategies to improve safety of swallow. 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 From 10/06/2021 ? 11/12/2021 he received definitive radiation therapy to the larynx in 28 fractions. Dysphagia Hx: He followed with speech therapy to manage dysphagia during radiation treatment and has attended annual follow up MBSS to assess risk for worsening dysphagia s/p radiation. PNA 2X February 2023-March 2023. MBSS 04/05/2023 revealed mild-moderate pharyngeal dysphagia and recommended Soft and Bite Size Textures and Thin Liquids w/ the following Compensatory Strategies: Small Bites, Small Sips, Slow Rate, Multiple Swallows (Patient completes as needed), Alternate bites/solids and sips/liquids, Sitting upright and Remain sitting upright for 30 minutes after PO intake. TARIFF COMPILER recommended follow up dysphagia therapy to address worsening swallow function, but the patient did not wish to return to at the time. He still has ~25% of his taste after having COVID-19 twice. He continues to be hoarse. Severe xerostomia upon waking but no issues w/ dry mouth during the day. No odynophagia. He reports having to chew foods thoroughly and take his time. The only food he avoids currently is rice. Pt recently had yearly MBSS to monitor swallow function s/p radiation treatment. It revealed again Mild-moderate oropharyngeal dysphagia w/ aspiration of thin and mildly thickened liquids. TARIFF COMPILER recommended Easy to Chew textures / Thin liquids w/ strict aspiration precautions. Due to worsening aspiration risk since previous MBSS, TARIFF COMPILER strongly recommended return to dysphagia treatment for participation in the [facility] ([facility]). Pt agreeable and participated in 15 sessions of MDTP w/ TARIFF COMPILER and is now recommended for repeat MBSS to re-assess swallow function and aspiration risk. Current Diet Ordered: Regular textures (no rice) / Thin liquids Dentition: Natural Teeth and Missing Teeth Mental Status: WNL Respiratory Status: Oxygenating on Room Air Penetration-Aspiration Scale Penetration-Aspiration Scale: OBJECTIVE ASSESSMENT OF SWALLOW FUNCTION (QUANTITATIVE ? PER TRIAL): PENETRATION / ASPIRATION SCALE (DIAZ): 1 = does not enter airway 2 = enters airway/above vocal folds/ejected 3 = enters airway/above vocal folds/not ejected 4 = enters airway/contacts vocal folds/ejected 5 = enters airway/contacts vocal folds/not ejected 6 = enters airway/below vocal folds/ejected 7 = enters airway/below vocal folds/not ejected despite effort 8 = enters airway/below vocal folds/no effort VIDEOFLOROSCOPIC SCALE SCORE (DIAZ): Grade I = aspiration of material that has penetrated into the laryngeal vestibule, intact cough reflex Grade II = aspiration < 10 % of the bolus, intact cough reflex Grade III = aspiration of < 10 % of the bolus, reduced cough reflex or aspiration of > 10 % of the bolus, intact cough reflex Grade IV = aspiration of > 10 % of the bolus, reduced cough reflex Oral Phase Labial Seal: No Labial Escape Tongue Control During Bolus Hold: Escape to lateral buccal cavity/floor of mouth Bolus Preparation/Mastication: Timely and efficient chewing and mashing Bolus Transport/Lingual Motion: Delayed initiation of tongue motion Oral Residue: Trace residue lining oral structures Pharyngeal Phase Initiation of Pharyngeal Swallow: Bolus head at posterior laryngeal surgace of epiglottis Soft Palate Elevation: No bolus between soft palate and pharyngeal wall Laryngeal Elevation: Partial superior movement thyroid cart/partial apprx aryt-epig petiole Anterior Hyoid Excursion: Partial anterior movement Epiglottic Movement: Partial inversion Laryngeal Vestibule Closure at Height of Swallow: Incomplete; narrow column of air/contrast in laryngeal vestibule Pharyngeal Stripping Wave: Present - diminished Pharyngoesophageal Segment Opening: Minimal distension and minimal duration; marked obstruction of flow Tongue Base Retraction: Wide column of contrast between tongue base & post. pharyngeal wall Pharyngeal Residue: Majority of contrast within or on pharyngeal structures (50% of cookie remained in the pharynx during the swallow, >50% after the swallow d/t retrograde flow through the UES) Esophageal Phase Esophageal Clearance: Esophageal retention w/ retrograde flow through pharyngoesophageal seg Treatment Strategies Effects of treatment strategies attemped:: Cough and re-swallow = somewhat effective. Chin tuck = not effective. Cued breath hold and swallow (modified supraglottic) = not effective. Diagnosis/Impression Diagnosis: Mild-moderate pharyngeal dysphagia R13.13 .: Image 1. Left image is pharyngeal clearance of 5mL teaspoon (initial swallow) on today's MBSS as compared to pharyngeal clearance of 5mL teaspoon on 08/04/2024 (Right image). Image 2. Left image is pharyngeal clearance of 10mL teaspoon (initial swallow) on today's MBSS as compared to pharyngeal clearance of 10mL teaspoon on 08/04/2024 (Right image). Image 3. Left image is pharyngeal clearance of teaspoon of pudding (initial swallow) on today's MBSS as compared to pharyngeal clearance of teaspoon of pudding on 08/04/2024 (Right image). MBS Impressions: Oral phase is grossly WNL. The pharyngeal phase is primarily marked by... -Decreased pharyngeal motility due to decreased TB retraction, pharyngeal stripping wave, and UES opening/duration of opening. Improved pharyngeal clearance of liquids as compared to previous study. Improved pharyngeal clearance of pudding as compared to previous study. Improved pharyngeal clearance of cookie through the vallecula as compared to previous study; however, increased retention in the UES w/ retrograde flow to the pyriform sinuses. With multiple, effortful swallows, the patient did mostly clear cookie through the UES. -Aspiration of thin liquids via 10cc cup, mildly thick liquids via cup (SILENT post prandial aspiration of mildly thick liquids), and aspiration of thin liquids via cup w/ use of modified supraglottic swallow and chin tuck. Reflexive throat clearing throughout the MBSS in response to laryngeal penetration of liquids and aspiration of thin liquids via 10cc cup. Reflexive cough after aspiration of thin liquids via cup w/ use of modified supraglottic swallow and chin tuck. The esophageal phase is primarily marked by... -Significant esophageal retention of cookie in the UES w/ retrograde flow to the pyriform sinuses. Recommendations Diet: Regular Textures and Thin Liquids Comment: Frequent oral care Compensatory Strategies: Small Bites (Chew thoroughly), Small Sips (Cough and re-swallow as needed if sensing tickle in throat), Slow Rate, Multiple Swallows (hard swallows), Sitting upright and Remain sitting upright for 30 minutes after PO intake Recommend Repeat Modified Barium Swallow: Yes (6-12months) Need for Skilled Speech Therapy Services: Yes Comment: -Consider additional participation in MDTP if pt is agreeable. -If pt is not interested in additional intensive dysphagia rehabilitation, will recommend oropharyngeal home exercise program (Effortful swallows w/ food, Chetna, Sera, Shaker). Recommended Referrals: GI Consult (Increased retention of cookie in the UES as compared to previous study) Education Completed: 1. Described result of evaluation. Status Active ST Patient: Active Contact Information [facility] Speech Therapy:: Nancy Conrad M.A. CCC-TARIFF COMPILER? Speech-Language Pathologist?? [facility] [address] [place] [address]? [email or web address]?? [phone]
== END | disposition home or self-care (01) ==
LOC: RAD 12:41
PROVIDERS: PCP Nurse Practitioner Primary Care; Referring Provider Student in an Organized Health Care Education/Training Program; Visit Provider Student in an Organized Health Care Education/Training Program
DX: C32.9 Malignant neoplasm of larynx, unspecified (principal)
CPT/HCPCS: 74230; 92611

== ENCOUNTER 2024-10-31 14:05 | Outpatient (CLI) | payer BC, SELFPAY ==
--- NOTE | 2024-10-31 14:07 | CT_ITS ---
PROCEDURE: LOW DOSE CT LUNG SCREENING 10/31/2024 REASON FOR EXAM: SMOKER Current smoker. 1-2 packs per day for 46 years. Cough. TECHNIQUE: LOW DOSE CT LUNG SCREENING Coronal and Sagittal reconstruction series were provided. One or more dose reduction techniques were used (e.g., Automated exposure control, adjustment of the mA and/or kV according to patient size, use of iterative reconstruction technique). REFERENCE LINK: [facility] Lung-RADS RADIATION DOSE SUMMARY: CTDlvol: 3.02 mGy DLP: 118.52 mGycm COMPARISON: Prior CT scan of the chest dated November 10, 2023. FINDINGS: PULMONARY NODULES: (Only nodules >3mm are reported) Nodules described below are on series 1 unless otherwise specified. Pulmonary Nodules: No suspicious nodules are seen. Hardware:None Lymph Nodes:No significant lymph nodes are seen. Heart and Vasculature:The heart is not enlargedAtherosclerotic calcifications of the thoracic aorta. Thoracic aorta and pulmonary arteries have normal contours; noncontrast technique limits evaluation. Coronary Artery Calcifications: Present Lungs and Airways: Scarring and bronchiectasis in the posterior medial segment of the right lower lobe. Mild scarring at the left lung base. Pleura:No pleural effusion Upper Abdomen:Unremarkable Bones:Degenerative changes of the thoracic spine. CT/Low Dose CT Lung Screening IMPRESSION: No suspicious nodules are seen. Bronchiectasis and scarring in the lower lobes worse on the right side. Coronary artery calcification (CAC) is is present Lung-RADS Category: 2 BENIGN (BASED ON IMAGING FEATURES OR INDOLENT BEHAVIOR). RECOMMEND 12-MONTH SCREENING LDCT. Other Significant Findings: Reading Location: [facility]
== END 2024-10-31 23:59 | disposition home or self-care (01) ==
LOC: CT 14:07
PROVIDERS: PCP Nurse Practitioner Primary Care; Referring Provider Nurse Practitioner Acute Care; Visit Provider Nurse Practitioner Acute Care
DX: F17.200 Nicotine dependence, unspecified, uncomplicated (principal); J47.9 Bronchiectasis, uncomplicated; R91.1 Solitary pulmonary nodule
CPT/HCPCS: 71271